=== PATIENT | male | born 1975 | race Caucasian/White ===

== ENCOUNTER → 2024-10-06 | Outpatient (CLI) | payer OTHER, SELFPAY ==
[2024-10-06 15:31] LABS: Absolute Neutrophil Count 3.2 X10^3/uL (2.0-7.7); Basophil# 0.05 X10^3/uL; Basophil% 1.1 % (0-1); Eosinophil# 0.03 X10^3/uL; Eosinophils% 0.6 % (0-5); Hematocrit 32.4 % (40-54); Hemoglobin 11.5 g/dL (13.0-16.5); Lymphocyte % 16.9 % (19-41); Mean Corp Hgb Conc 35.5 g/dL (32-36); Mean Corpuscular Volume 93.1 fL (80-94); Mean Platelet Vol. 8.2 fl (6.2-12.0); Monocyte# 0.62 X10^3/uL; Monocyte% 13.1 % (0-10); NRBC Flagged by Analyzer 0 % (0-5); Neutrophil # 3.21 X10^3/uL (2.7-7.7); Neutrophil % 67.9 % (47-70); Platelet Count 192 K/mm3 (150-450); RBC Distribution Width CV 11.5 % (11.6-14.6); RBC Distribution Width SD 38.8 fl (35.1-43.9); Red Blood Count 3.48 M/mm3 (4.6-6.2); White Blood Count 4.7 K/mm3 (4.4-11.0)
[2024-10-06 15:55] LABS: Erythrocyte Sedimentation Rate 15 mm/hr (0-20)
[2024-10-06 18:00] LABS: Vitamin B12 207 pg/mL (211-911)
[2024-10-06 18:30] LABS: ALB/GLOB Ratio 0.7 RATIO (0.9-2.4); AST(SGOT) 179 U/L (15-37); Alanine Aminotransfer ALT/SGPT 135 U/L (16-61); Albumin, Serum 3.5 g/dL (3.2-5.0); Alkaline Phosphatase 86 U/L (45-117); Anion Gap 11 (5-15); BUN 10 mg/dL (7-18); BUN/Creat Ratio 11.4 RATIO (10-20); Calcium,Total 9.4 mg/dL (8.5-10.1); Chloride 92 mmol/L (98-107); Cholesterol 210 mg/dL (200); Creatinine, Serum 0.88 mg/dL (0.70-1.30); EST Glomerular Filtration Rate 99 mL/min (>60); Est Glom Filt Rate - Afr Amer 119 mL/min (>60); Ferritin 856 ng/mL (26-388); Globulin 5.1 g/dL (2.2-4.2); Glucose 81 mg/dL (74-106); High Density Lipoprotein 93 mg/dL; PSA,Total - Annual Screen 1.28 ng/mL (0.00-4.00); Protein, Total 8.6 g/dL (6.4-8.2); Sodium Level 127 mmol/L (136-145); Triglycerides 66 mg/dL; Very Low Density Lipoprotein 13 mg/dL (5-40)
[2024-10-06 18:46] LABS: Amphetamine Urine NEGATIVE (<1000 ng/mL); Barbiturate Urine VISTA NEGATIVE (< 200 ng/mL); Benzodiazepine Urine VISTA NEGATIVE (< 200 ng/mL); Cocaine Urine NEGATIVE (< 300 ng/mL); Ecstacy Urine VISTA NEGATIVE (< 500 ng/mL); Methadone Urine VISTA NEGATIVE (< 300 ng/mL); Opiates Urine NEGATIVE (< 300 ng/mL); PCP Urine NEGATIVE (< 25 ng/mL); THC Urine VISTA NEGATIVE (< 50 ng/mL); Vista UDS pH Range 5
[2024-10-07 09:40] LABS: Iron 107 ug/dL (65-175); Magnesium 2.9 mg/dL (1.6-2.6)
[2024-10-12 08:08] LABS: GGTP 424 IU/L (0-65); Vitamin B1, Thiamine 68.5 nmol/L (66.5-200.0)
== END | disposition home or self-care (01) ==
PROVIDERS: PCP Family Medicine; Referring Provider Nurse Practitioner Family; Visit Provider Nurse Practitioner Family
DX: I10 Essential (primary) hypertension (principal); E78.5 Hyperlipidemia, unspecified; R25.1 Tremor, unspecified; Z78.9 Other specified health status; R26.81 Unsteadiness on feet; Z12.5 Encounter for screening for malignant neoplasm of prostate
CPT/HCPCS: 36415; 80053; 80061; 80307; 82043; 82306; 82607; 82728; 82977; 83540; 83735; 84153; 84425; 84443; 85025; 85652; G0103

== ENCOUNTER 2024-10-10 08:07 | Day surgery (SDC) | payer OTHER, SELFPAY ==
[2024-10-10] VITALS (10 sets, daily range): BP systolic 107–182; BP diastolic 74–121; PULSE 77–93; RESP 16–18; TEMP 36.3–37.3; O2SAT 95–100; BMI 26.2
--- NOTE | 2024-10-10 08:48 | PCM.PRE.AN2 ---
ASA Classification* ASA Classification ASA Classification: 2 Assessment & Plan Anesthesia* Anesthesia Assessment Anesthesia Assessment: Discussed sedation and/or anesthesia options, risks, benefits, and alternatives with patient/parents/legal guardian/POA. Questions invited. The patient/parents/legal guardian/POA seems to understand and agrees to proceed with anesthesia plan. Reviewed the physical assessment, medical history, allergy history and patient home medications list prior to surgery/procedure/anesthetic and documented any changes. Performed airway and anesthesia risk assessments. Anesthesia Type Anesthesia Type: MAC History Source History Obtained from:: Patient and Chart Anesthesia Focused Assessment* Temperature: 97.4 F Pulse Rate: 93 Blood Pressure: 180/110 Respiratory Rate: 17 Pulse Ox: 100 Oxygen Delivery Method: Room Air Airway Assessment Mouth opens: >3 cm Mallampati Score: IV Teeth Condition: Caps/Crowns (Tooth #8 is a crown. It is tight.) Neck Range of motion (ROM): Full ROM Focused Labs Anesthesia Preop lab: CBC WBC 4.7 K/mm3 (4.4-11.0) 10/06/24 13:43 10/06/24 RBC 3.48 M/mm3 (4.6-6.2) L 10/06/24 13:43 10/06/24 Hgb 11.5 g/dL (13.0-16.5) L 10/06/24 13:43 10/06/24 Hct 32.4 % (40-54) L 10/06/24 13:43 10/06/24 Plt Count 192 K/mm3 (150-450) 10/06/24 13:43 10/06/24 CHEMISTRY Potassium 5.0 mmol/L (3.5-5.1) 10/06/24 13:41 10/06/24 Sodium 127 mmol/L (136-145) L 10/06/24 13:41 10/06/24 Magnesium 2.9 mg/dL (1.6-2.6) H 10/06/24 13:41 10/06/24 BUN 10 mg/dL (7-18) 10/06/24 13:41 10/06/24 Creatinine 0.88 mg/dL (0.70-1.30) 10/06/24 13:41 10/06/24 Glucose 81 mg/dL (74-106) 10/06/24 13:41 10/06/24 TSH 1.330 uIU/mL (0.358-3.740) 10/06/24 13:41 10/06/24 COAG Pre-Assessment Diagnosis/Proposed Procedure Planned Operative Procedure(s): CSCOPE Anesthesia History 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 When Was Last Pacemaker Check QUESTION #4 FULL TEXT: You/Your Family Experience fever (hyperthermia) with Anesthesia Last Oral Intake Last Oral intake: Last Oral Intake NPO since 00:00 10/10/24 08:30 Meds taken in AM with sips of No 10/10/24 08:30 water? 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: PONV - hotel and dining room cashier Female No 10/04/24 12:02 HX of Motion Sickness No 10/04/24 12:02 HX of N/V After Surgery No 10/04/24 12:02 Non-Smoker Yes 10/04/24 12:02 Duration of Surgery greater No 10/04/24 12:02 than 60 minutes Number of Risk Factors 1 10/04/24 12:02 PONV Score Low Risk 10/04/24 12:02 Height & Weight Height & Weight: Anesthesia: Height & Weight Height 6 ft 3 in 10/10/24 08:30 Weight: 95 kg 10/10/24 08:30 Body Mass Index (BMI) 26.2 10/10/24 08:30 Respiratory Assessment Respiratory Assessment - hotel and dining room cashier: Respiratory Tract Infection Hx - hotel and dining room cashier Hx Respiratory Tract Infection No 10/04/24 12:02 Any additional information?: Yes Hx Respiratory Tract Infection: Yes (Patient has a chronic cough.) STOP Sleep Apnea STOP Sleep Apnea - hotel and dining room cashier: STOP Sleep Apnea - hotel and dining room cashier Hx Hypertension Yes: RECENTLY PUT ON BP MEDS 10/04/24 12:02 09/2024 Hx Sleep Apnea No: GOING TO BE TESTED END 10/04/24 12:02 OF 09/2024 CPAP BIPAP Do you snore loudly (louder No 10/04/24 12:02 than talking or can be heard Do you often feel tired/ No 10/04/24 12:02 fatigued/ sleepy during daytime? Has anyone observed you stop No 10/04/24 12:02 breathing during sleep? STOP Results Negative 10/04/24 12:02 QUESTION #5 FULL TEXT : Do you snore loudly (louder than talking or can be heard through closed doors)? 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 Specify any problems Hx of Preganancy in last 3 N/A 10/04/24 12:02 Months Nurse Filling Out Transfusion NBUCHER 10/04/24 12:02 & Questions: Date: 10/04/24 10/04/24 12:02 Time: 12:03 10/04/24 12:02 Patient unable to answer at this time (ie. confused, unrespo /Reproduction History /Reproductive History - hotel and dining room cashier: /Reproductive Hx- hotel and dining room cashier Hx Now Gestational Age (in weeks): EDC: Hx Hx Para Hx Section SAB PFSH Medical History High cholesterol GERD (gastroesophageal reflux disease) Alcohol use Non-smoker History of stress test Hypertension Hyperlipidemia Home Medications ?Medication ?Instructions ?Recorded ?Last Taken ?Type esomeprazole magnesium 20 mg 20 mg PO QDAY PRN GERD 08/01/24 10/09/24 History capsule,delayed release simvastatin 40 mg tablet 40 mg PO QDAY 08/01/24 10/09/24 History Allergy/AdvReac Type Severity Reaction Status Date / Time No Known Allergies Allergy Verified 10/10/24 08:29 Family History Father Prostate cancer Surgical History History of tonsillectomy Hx of vasectomy Social History household members: spouse current occupational status: employed Smoking Status: Never smoker alcohol intake: current alcohol intake frequency: 3 or more drinks per day Alcohol type: beer substance use type: does not use Review of Systems (Anesthesia) ROS Narrative System reviewed and no additional complaints, except as documented.
--- NOTE | 2024-10-10 09:07 | H&P.OPEN ---
HPI - General HPI Narrative RJ OROZCO, is a 48 M who presents for his for screening colonoscopy. Patient denies any abdominal pain or blood in the stool. He has never had a colonoscopy in the past. No family history of colon cancer. FOR[facility]LY [facility] Medical History High cholesterol GERD (gastroesophageal reflux disease) Alcohol use Non-smoker History of stress test Hypertension Hyperlipidemia Home Medications ?Medication ?Instructions ?Recorded ?Last Taken ?Type esomeprazole magnesium 20 mg 20 mg PO QDAY PRN GERD 08/01/24 10/09/24 History capsule,delayed release simvastatin 40 mg tablet 40 mg PO QDAY 08/01/24 10/09/24 History Allergy/AdvReac Type Severity Reaction Status Date / Time No Known Allergies Allergy Verified 10/10/24 08:29 Family History Father Prostate cancer Surgical History History of tonsillectomy Hx of vasectomy Social History household members: spouse current occupational status: employed Smoking Status: Never smoker alcohol intake: current alcohol intake frequency: 3 or more drinks per day Alcohol type: beer substance use type: does not use Past Medical/Surgical History Planned Operation Planned Operative Procedure(s): CSCOPE Previous Hospitalizations/Surgeries HX Hospitalizations: No Any Problems With Anesthesia: No You/Your Family Experience Fever (Hyperthermia) With Anes: No Cholinesterase deficiency: No Cardiovascular Hx Hypertension: Yes (RECENTLY PUT ON BP MEDS 09/2024) Respiratory Hx Sleep Apnea: No (GOING TO BE TESTED END OF 09/2024) Hx Respiratory Tract Infection/Cold (presently): Yes (Patient has a chronic cough.) Do You Snore Loudly (louder than talking or can be heard): No Do You Often Feel Tired/ Fatigued/ Sleepy Dring Daytime?: No Has Anyone Observed You Stop Breathing During Sleep?: No Result (for STOP score): Negative Smoking Status: Never smoker Neurological Does patient have nerve stimulator: No Miscellaneous Recent Exposure to Contagious Disease: No Allergies No Known Allergies Allergy (Verified 10/10/24 08:29) Discharge Is Pt Admitted From a Long-Term, or a Half-Way: No After D/C, Where Do you Plan to Go: Return Home Vital Signs Vital Signs Vital Signs: 10/10/24 08:30 10/10/24 08:30 10/10/24 08:58 Temperature 97.4 F L 97.4 F L Temperature Source Temporal Pulse Rate 93 93 Respiratory Rate 17 17 Respiratory Pattern Normal Blood Pressure 180/110 H 180/110 H Blood Pressure Mean 133 Blood Pressure Source Monitor Blood Pressure Position Semi-Fowlers Blood Pressure Location Left Arm Pulse Ox 100 100 Oxygen Delivery Method Room Air Room Air Weight Weight: 209 lb 7.026 oz Body Mass Index (BMI) 26.2 Physical Exam Const alert and oriented x3 HEENT normocephalic Eyes PERRL Resp normal respiratory effort and normal air movement Cardio regular rate and regular rhythm GI soft to palpation, non-tender and non-distended Extremity normal to inspection Assessment & Plan Assessment/Plan (1) Encounter for screening for malignant neoplasm of colon: PLAN: I explained endoscopy in detail to the patient. I explained the risks including but not limited to stroke or heart attack with anesthesia, perforation of the GI tract, bleeding, infection. I explained that any of these could necessitate further emergency surgery. The patient understands and all questions were answered sufficiently. The patient wishes to proceed with procedure. Paddy Lanza MD Pager: [facility] [address] [place] [address], [address] [place] [address] Office: Surgery Risks - Colonoscopy Risks Include but are not Limited To: Risks include but are not limited to: Bleeding, perforation requiring further surgery, inability to complete colonoscopy requiring barium enema.
--- NOTE | 2024-10-10 09:15 | COLBX_PTH ---
PATIENT: RJ OROZCO II LOC: EN U#:[id number] AGE/SX: 48/M ROOM: RE10/10/[address]: Dr. Paddy Lanza MD : 1975 BED: DIS: 10/10/2024 SPEC #: [id number] RECD: 10/10/24 11:15 STATUS: RODRIGO CONTEH #: [id number] JAZMIN: 10/10/24 09:[address]: Paddy Lanza DEPT: SURGICAL PATHOLOGY RECD BY: Falguni Arteaga ENTERED: 10/10/24 11:57 SP TYPE: COLON BX OTHR DR: Dr. Will Santana MD Tissues: Rectum, NOS Procedures: Surgery Specimen Level IV HEADER OPERATION: Colonoscopy, polypectomy PRE-OP DIAGNOSIS: Encounter for screening for malignant neoplasm of colon TISSUE SUBMITTED: Rectal polyp MICROSCOPIC DIAGNOSIS Rectal polyp, polypectomy: Tubular adenoma. 10/11/2024 MICROSCOPIC DESCRIPTION Slides are reviewed. GROSS DESCRIPTION Received in fixative is one container labeled with the patient's name and designated Rectal polyp. The specimen consists of a pink-red polyp measuring 1.5 x 1.5 x 1 cm. The presumed base is inked. The polyp is serially sectioned and submitted entirely in one cassette. 10/10/2024 TC:1 CPT:22211
--- NOTE | 2024-10-10 10:20 | OP.COLON_ITS ---
Patient Name: Avery Johnson Procedure Date: 10/10/2024 9:00 AM Date of : 1975 Age: 48 Procedure: Colonoscopy Indications: Screening for colorectal malignant neoplasm Providers: Paddy Lanza MD Referring MD: Paddy Lanza MD Medicines: Propofol per Anesthesia Patient Profile: This is a 48 year old male. Refer to note in patient chart for documentation of history and physical. Last Colonoscopy: none. The patient's first colonoscopy is today. Complications: No immediate complications. Estimated blood loss: Minimal. Procedure: Pre-Anesthesia Assessment: - Prior to the procedure, a History and Physical was performed, and patient medications and allergies were reviewed. The patient's tolerance of previous anesthesia was also reviewed. The risks and benefits of the procedure and the sedation options and risks were discussed with the patient. All questions were answered, and informed consent was obtained. Prior Anticoagulants: The patient has taken no anticoagulant or antiplatelet agents. After reviewing the risks and benefits, the patient was deemed in satisfactory condition to undergo the procedure. After I obtained informed consent, the scope was passed under direct vision. Throughout the procedure, the patient's blood pressure, pulse, and oxygen saturations were monitored continuously. The colonoscope was introduced through the anus and advanced to the ileocecal valve. The colonoscopy was performed without difficulty. The patient tolerated the procedure well. The quality of the bowel preparation was good. The ileocecal valve, appendiceal orifice, and rectum were photographed. Scope In: 10:04:28 AM Scope Withdrawal Time 0 hours 5 minutes 52 seconds Scope Out: 10:15:32 AM Total Procedure Duration Time 0 hours 11 minutes 4 seconds Findings: A large polyp was found in the rectum. The polyp was semi-pedunculated. The polyp was removed with a hot snare. Resection and retrieval were complete. The exam was otherwise without abnormality on direct and retroflexion views. Impression: - One large polyp in the rectum, removed with a hot snare. Resected and retrieved. - The examination was otherwise normal on direct and retroflexion views. Recommendation: - Discharge patient to home. - Resume previous diet. - Continue present medications. - Await pathology results. - Repeat colonoscopy in 3 years for surveillance. Procedure Code(s): --- Professional --- 46643, 33, Colonoscopy, flexible; with removal of tumor(s), polyp(s), or other lesion(s) by snare technique Diagnosis Code(s): --- Professional --- Z12.11, Encounter for screening for malignant neoplasm of colon D12.8, Benign neoplasm of rectum CPT copyright 2021 [employer]. All rights reserved. The codes documented in this report are preliminary and upon thermometer maker review may be revised to meet current compliance requirements. Paddy Lanza MD 10/10/2024 10:19:35 AM This report has been signed electronically. Number of Addenda: 0 Note Initiated On: 10/10/2024 9:00 AM
--- NOTE | 2024-10-10 10:20 | OP.CCLET_ITS ---
10/10/2024 Grant Santana [address] [place] [address] Re : Colonoscopy procedure for Avery Johnson Dear Dr. Santana This procedure was performed on Thursday, October 10, 2024. My impressions and recommendations are as follows: Impressions : - One large polyp in the rectum, removed with a hot snare. Resected and retrieved. - The examination was otherwise normal on direct and retroflexion views. Recommendations : - Discharge patient to home. - Resume previous diet. - Continue present medications. - Await pathology results. - Repeat colonoscopy in 3 years for surveillance. My findings are described in the full procedure note, which is enclosed. If I can be of further assistance, please feel free to contact me at Doctor phone number(s): , Work: . Sincerely, Paddy Lanza MD 10/10/2024 10:19:35 AM This report has been signed electronically.
--- NOTE | 2024-10-10 10:24 | PCM.POST.ANE ---
Anesthesia: Postop Eval I Current Vital Signs Temperature: 99 F Pulse Rate: 77 Blood Pressure: 107/74 Respiratory Rate: 16 Pulse Ox: 97 Oxygen Delivery Method: Room Air Assessment Airway patent: Yes Spontaneous unlabored respirations: Yes Mental status: Asleep nausea: No Vomiting: No Anesthesia Complication: No Fluid Hydration Crystalloid volume administer (ml): 200 Total IV fluid infused: 200 Progress Note Anesthesia document: Postop Eval 1 completed: Yes
--- NOTE | 2024-10-10 18:33 | PCM.POSTANE2 ---
Anesthesia Postop Eval I Sum Postop Eval Completion status Anesthesia document: Postop Eval 1 completed: Yes Anesthesia Postop Eval I Summary Anesthesia Postop Eval I Summary: Anesthesia Postop Eval I: Assessment Summary Airway patent Yes 10/10/24 10:25 [email or web address] Spontaneous unlabored Yes 10/10/24 10:25 [email or web address] respirations Mental status Asleep 10/10/24 10:25 [email or web address] nausea No 10/10/24 10:25 [email or web address] Vomiting No 10/10/24 10:25 [email or web address] Anesthesia Postop Eval I: Fluid Summary Crystalloid volume administer 200 10/10/24 10:25 [email or web address] (ml) Colloids volume administered ( ml) Blood Product volume administered (ml) Total IV fluid infused 200 10/10/24 10:25 [email or web address] Anesthesia Postop Eval I: Summary Notes Anesthesia Complication No 10/10/24 10:25 [email or web address] Anesthesia Complication Comment: Post-operative progress note Anesthesia: Postop Eval II Evaluation Mental status: Awake and Calm Pain Level: 0 nausea: No Vomiting: No Progress Note Post-operative progress note: Blood pressure is much improved in PACU. Complications Anesthesia Complication: No
== END 2024-10-10 10:57 | disposition home or self-care (01) ==
LOC: EN 08:11 → AC 08:11
PROVIDERS: PCP Family Medicine; Referring Provider Surgery; Visit Provider Surgery
PROC: 0DJD8ZZ Inspection of Lower Intestinal Tract, Via Natural or Artificial Opening Endoscopic (ICD-10-PCS; CPT 45378; principal; 2024-10-10 09:10)
DX: Z12.11 Encounter for screening for malignant neoplasm of colon (principal); D12.8 Benign neoplasm of rectum; I10 Essential (primary) hypertension; E78.00 Pure hypercholesterolemia, unspecified; K21.9 Gastro-esophageal reflux disease without esophagitis; Z79.899 Other long term (current) drug therapy
CPT/HCPCS: 45385; 88305; A4216; J2405

== ENCOUNTER → 2024-10-16 | Outpatient (CLI) | payer OTHER, SELFPAY ==
[2024-10-16 11:34] LABS: AST(SGOT) 93 U/L (<=37); Alanine Aminotransfer ALT/SGPT 94 U/L (<=46); Albumin, Serum 3.8 g/dL (3.5-5.0); Alcohol, Blood (Medical)-Serum < 10.1 mg/dL (<=10.0); Alkaline Phosphatase 68 U/L (40-129); Ammonia 24.7 umol/L (16-60); Anion Gap 11 (5-15); BUN 14 mg/dL (4-19); BUN/Creat Ratio 13.7 RATIO (10-20); Calcium 9.2 mg/dL (7.6-11.0); Carbon Dioxide 24.5 mmol/L (22.0-29.0); Chloride 92 mmol/L (96-108); Creatinine, Serum 1.01 mg/dL (0.70-1.20); EST Glomerular Filtration Rate 92 (>60); Glucose 101 mg/dL (70-99); Potassium 3.9 mmol/L (3.3-5.1); Protein, Total 7.8 g/dL (5.9-8.4); Sodium Level 128 mmol/L (133-145); Total Bilirubin 1.03 mg/dL (0.00-1.30)
[2024-10-16 15:40] LABS: Osmolality, Serum 268 mOsm/KG (275-295)
[2024-10-17 17:07] LABS: Endomysial Antibody IgA Negative (Negative); HEPATITIS B SURFACE AG Negative (Negative); Hep C Antibodies Non Reactive (Non Reactive); Hepatitis A IgM Antibody Negative (Negative); Hepatitis B Core AB IgM Negative (Negative); Immunoglobulin A 451 mg/dL (90-386); t-Transglutaminase IgA <2 U/mL (0-3)
== END | disposition home or self-care (01) ==
LOC: MFPLAB 08:16
PROVIDERS: PCP Family Medicine; Referring Provider Family Medicine; Visit Provider Family Medicine
DX: E87.1 Hypo-osmolality and hyponatremia (principal); D64.9 Anemia, unspecified; R79.89 Other specified abnormal findings of blood chemistry
CPT/HCPCS: 36415; 80053; 80074; 82077; 82140; 82784; 83516; 83930; 86255

== ENCOUNTER → 2024-11-01 | Outpatient (CLI) | payer OTHER, SELFPAY ==
--- NOTE | 2024-11-01 08:20 | US_ITS ---
PROCEDURE: ABD LIMITED W/ ELASTOGRAPHY REASON FOR EXAM: NEW ELEVATED LFTS, ETOH. COMPARISON: None. TECHNIQUE: Right upper quadrant abdominal ultrasound. Charly ElastQ Imaging shear wave elastography for non-invasive assessment of liver tissue stiffness. Charly EPIQ Elite. FINDINGS: LIVER: Size: Enlarged (hepatomegaly) Length: 18 cm Echotexture: Diffusely echogenic suggesting fatty infiltration Contour: Normal Lesions: None identified Elastography: EQI Med: 12.3 kPa EQI Med Alex: 2.0 m/s IQR/Med: 12 %* GALLBLADDER: Normal COMMON BILE DUCT: Normal it measures 4.6 mm.. PANCREAS: Normal Visualized portions of the right kidney are unremarkable. No right upper quadrant ascites. US/ABD Limited w/ Elastography IMPRESSION: MODERATE TO SEVERE HEPATIC FIBROSIS Mild hepatomegaly and fatty infiltration of the liver. Reference Values: SRU <1.37 m/s (5.7kPa): No to mild fibrosis 1.37 m/s - 2.2 m/s: Moderate to severe fibrosis >2.2 m/s (15kPa): Significant fibrosis / cirrhosis METAVIR Score F2 or higher: 1.34 m/s (5.7kPa) F3 or higher: 1.55 m/s (7.3kPa) F4: 1.80 m/s (10kPa) * If the IQR/Med is >30%, the variance in the measurements is a large and the a ccuracy of the measurement may be in question. Reading Location: [place] [id number]
== END | disposition home or self-care (01) ==
PROVIDERS: PCP Family Medicine; Referring Provider Family Medicine; Visit Provider Family Medicine
DX: R79.89 Other specified abnormal findings of blood chemistry (principal)
CPT/HCPCS: 76705; 76981

== ENCOUNTER → 2024-12-05 | Outpatient (CLI) | payer OTHER, SELFPAY ==
--- NOTE | 2024-12-05 09:19 | NEURO ---
NCS and/or EMG Patient Report Ordering Doctor: Wisam Cosby DATE OF SERVICE: 12/05/24 Clinical Summary: 48 year old male patient presenting with symptoms of numbness, tingling, and weakness in the distal lower extremities for the 6 to 12 months. Nerve Conduction Studies Summary: Nerve conduction studies were performed in the bilateral lower extremities. All SNAPs and CMAPs were absent bilaterally. Needle Examination Summary: Needle examination of the bilateral lower extremities were performed. There was increased insertional and spontaneous activity (positive sharp waves and fibrillation potentials) in the bilateral tibialis anterior, bilateral peroneus longus, bilateral medial gastrocnemius, and bilateral flexor digitorum longus muscles. There was higher proportion of motor unit action potentials with increased amplitude and duration in the right vastus lateralis muscle. There was a higher proportion of motor unit action potential recruitment, decreased amplitude, decreased duration, and polyphasia in the bilateral tibialis anterior, bilateral peroneus longus, and bilateral medial gastrocnemius muscles. There were no motor units observed in the bilateral flexor digitorum longus muscles. Impression: This is an abnormal study. There is electrodiagnostic evidence of the following - 1) Severe, sensorimotor, axonal, length-dependent, peripheral polyneuropathy with active denervation There were isolated chronic neurogenic changes seen in the right vastus lateralis muscle, which is of uncertain significance, but can be seen in the setting of a chronic mild, right L2/L3/L4 radiculopathy. Multi Select Codes Neurology Neurology Interp Codes: 59333-71 Musc test done w/n test comp (interp) (2) and 82130-29 Nrv cndj test 7-8 studies (interp)
== END | disposition home or self-care (01) ==
PROVIDERS: PCP Family Medicine; Referring Provider Psychiatry & Neurology Neurology; Visit Provider Psychiatry & Neurology Neurology
DX: R29.898 Other symptoms and signs involving the musculoskeletal system (principal); G62.9 Polyneuropathy, unspecified
CPT/HCPCS: 95886; 95910

== ENCOUNTER → 2025-01-24 | Outpatient (CLI) | payer OTHER, SELFPAY ==
[2025-01-24 17:27] LABS: AST(SGOT) 102 U/L (<=37); Alanine Aminotransfer ALT/SGPT 81 U/L (<=46); Albumin, Serum 4.1 g/dL (3.5-5.0); Alkaline Phosphatase 85 U/L (40-129); Anion Gap 13 (5-15); BUN 14 mg/dL (4-19); BUN/Creat Ratio 14.2 RATIO (10-20); Carbon Dioxide 23.4 mmol/L (21.0-32.0); Chloride 92 mmol/L (98-108); Creatinine, Serum 0.98 mg/dL (0.70-1.20); EST Glomerular Filtration Rate 95 (>60); Globulin 4.2 g/dL (2.2-4.2); Glucose 98 mg/dL (70-99); Magnesium 1.9 mg/dL (1.5-2.2); Potassium 4.2 mmol/L (3.3-5.1); Protein, Total 8.3 g/dL (5.9-8.4); Sodium Level 128 mmol/L (133-145); Total Bilirubin 1.06 mg/dL (0.00-1.30)
[2025-01-24 19:05] LABS: Hemoglobin A1c 5.3 % (<=5.6)
--- OUTSIDE RECORDS SUMMARY | 2025-01-24 21:04 | XMS RPT_ITS | CCD ---
Author Organization [facility] [place] Care Team Providers Care Mental Health Practitioner Name Role Phone PHYSICIAN, NONE Primary Care Unavailable MAX NELSON, DR RODRIGUEZ Attending Viola Ling Attending Provider Unavailable Max NELSON, Dr. Rodriguez Primary Care Provider Max NELSON, Dr. Rodriguez Other Provider [phone] Raciel PNEUDRAULIC SYSTEMS MECHANIC-C, Liudmila Attending Provider [phone] Raciel PNEUDRAULIC SYSTEMS MECHANIC-C, Liudmila Referring Provider Myla NELSON, Dr. Thomason Attending Provider [phone] Myla NELSON, Dr. Thomason Referring Provider Myla NELSON, Dr. Thomason Other Provider [phone] Dr. Michael Santana MD Attending Provider Max NELSON, Dr. Rodriguez Referring Provider Catrina NELSON, Dr. Ibanez Attending Provider Dr. Wisam Cosby MD Attending Provider Dr. Wisam Cosby MD Referring Provider Alea NELSON, Dr. Joel Other Provider [phone] Pita NELSON, Dr. Torres Attending Provider Dr. Wisam Cosby MD Referring Provider [phone] Wisam Cosby Attending Unavailable Michael Santana Referring Unavailable Michael Santana Primary Care Unavailable Wisam Cosby Attending Unavailable Wisam Cosby Referring Unavailable Michael Santana Primary Care Unavailable Michael Santana Attending Unavailable Michael Santana Referring Unavailable Michael Santana Primary Care Unavailable Michael Santana Attending Unavailable Michael Santana Referring Unavailable Maripos[facility]arietta, [facility] Primary Care Unavailable Wisam Cosby Attending Unavailable Wisam Cosby Referring Unavailable [facility] Unavailable Shamar Fritz Attending Unavailable [facility] Primary Care Unavailable Viola Henley Attending Unavailable Paddy Lanza Consulting Unavailable Paddy Lanza Attending Unavailable Paddy Lanza Referring Unavailable Mariposamarietta, [facility] Primary Care Unavailable Melissa Lema Attending Unavailable Wisam Cosby Referring Unavailable Alea, Wisam Consulting Unavailable Mariposamarietta, [facility] Primary Care Unavailable Wisam Cosby Attending Unavailable Max, Dimitrier Referring Unavailable Mariposamarietta, [facility] Primary Care Unavailable Mariposamarietta, [facility] Primary Care Unavailable Mxa, Michael Consulting Unavailable Raciel PNEUDRAULIC SYSTEMS MECHANIC, Liudmila Attending Unavailable Raciel PNEUDRAULIC SYSTEMS MECHANIC, Liudmila Referring Unavailable Mariposamarietta, [facility] Primary Care Unavailable Paddy Lanza Referring Unavailable Paddy Lanza Attending Unavailable Michael Santana Attending Unavailable MariposamariettaMichael Referring Unavailable [facility] Primary Care Unavailable Medications Current Medications Medication Drug Class(es) Dates Sig (Normalized) Sig (Original) cholecalciferol 1.25 mg oral capsule (2 sources) Vitamin D Start: 11-15-2024 take 1 capsule by mouth every week Cholecalciferol (Vitamin D3) 1,250 mcg (50,000 unit) capsule Active 1250 ug PO EVERY WEEK November 15, 2024 12:00am esomeprazole 20 mg delayed release oral capsule (4 sources) Proton Pump Inhibitor Start: 08-01-2024 take 1 capsule by mouth once daily as needed for gastroesophageal reflux disease Esomeprazole Magnesium 20 mg capsule,delayed release(DR/EC) Active 20 mg PO daily as needed for GERD August 01, 2024 1:00am simvastatin 40 mg oral tablet (4 sources) HMG-CoA Reductase Inhibitor Start: 08-01-2024 take 1 tablet by mouth once daily Simvastatin 40 mg tablet Active 40 mg PO daily August 01, 2024 1:00am Problems Problem Classification Problem Date Documented Date Episodic/Chronic Diabetes mellitus without complication (3 sources) Hyperglycemia; Translations: [Hyperglycemia, unspecified] Onset: 11-15-2024 11-15-2024 Episodic Essential hypertension (1 source) Essential (primary) hypertension; Translations: [Essential (primary) hypertension] Onset: 10-18-2024 Chronic Fluid and electrolyte disorders (6 sources) Hyponatremia; Translations: [Hypo-osmolality and hyponatremia] Onset: 11-15-2024 11-15-2024 Episodic Influenza (4 sources) Influenza due to Influenza A virus; Translations: [Influenza due to other identified influenza virus with other respiratory manifestations] 07-31-2022 Episodic Nutritional deficiencies (6 sources) Vitamin D deficiency; Translations: [Vitamin D deficiency, unspecified] Onset: 11-15-2024 11-15-2024 Chronic Nutritional deficiencies (6 sources) Cobalamin deficiency; Translations: [Deficiency of other specified B group vitamins] Onset: 11-15-2024 11-15-2024 Episodic Other connective tissue disease (2 sources) Paraparesis; Translations: [Other symptoms and signs involving the musculoskeletal system] 11-15-2024 Episodic Other connective tissue disease (2 sources) Other symptoms and signs involving the musculoskeletal system; Translations: [Other symptoms and signs involving the musculoskeletal system] Onset: 01-09-2025 Episodic Other nervous system disorders (5 sources) Polyneuropathy; Translations: [Polyneuropathy, unspecified] 11-15-2024 Chronic Other nervous system disorders (2 sources) Polyneuropathy, unspecified; Translations: [Polyneuropathy, unspecified] Onset: 11-15-2024 Chronic Other nutritional; endocrine; and metabolic disorders (2 sources) Hypermagnesemia; Translations: [Hypermagnesemia] 11-15-2024 Chronic Other nutritional; endocrine; and metabolic disorders (1 source) Hypermagnesemia; Translations: [Hypermagnesemia] Onset: 11-15-2024 Chronic Other screening for suspected conditions (not mental disorders or infectious disease) (11 sources) Patient encounter status; Translations: [Encounter for screening for malignant neoplasm of colon] Onset: 10-16-2024 08-01-2024 Episodic Other upper respiratory infections (4 sources) Sore throat symptom; Translations: [Acute pharyngitis, unspecified] 07-31-2022 Episodic Spondylosis; intervertebral disc disorders; other back problems (3 sources) Lumbar radiculopathy; Translations: [Radiculopathy, lumbar region] Onset: 01-22-2025 01-22-2025 Episodic Unclassified (2 sources) G62.9 - Polyneuropathy, unspecified,R29.898 - Other symptoms and signs involving the musculoskeletal system Results Test Name Value Interpretation Reference Range Facility NCS and/or EMG Patienton NCS and/or EMG Patient [facility]monary Services/Neurology [address] [place] [address] MR#: [id number] Acct: [id number] Name: RJ JOHNSON II Rep #: [id number] : 1975 48 From: Melissa Lema MD Referring Dr: Wisam Cosby MD Status: REG CL I Location: PSN Date: 12/05/24 Sex: M C NCS and/or EMG Patient Report Ordering Doctor: Wisam Cosby DATE OF SERVICE: 12/05/24 Clinical Summary: 48 year old male patient presenting with symptoms of numbness, tingling, and weakness in the distal lower extremities for the 6 to 12 months. Nerve Conduction Studies Summary: Nerve conduction studies were performed in the bilateral lower extremities. All SNAPs and CMAPs were absent bilaterally. Needle Examination Summary: Needle examination of the bilateral lower extremities were performed. There was increased insertional and spontaneous activity (positive sharp waves and fibrillation potentials) in the bilateral tibialis anterior, bilateral peroneus longus, bilateral medial gastrocnemius, and bilateral flexor digitorum longus muscles. There was higher proportion of motor unit action potentials with increased amplitude and duration in the right vastus lateralis muscle. There was a higher proportion of motor unit action potential recruitment, decreased amplitude, decreased duration, and polyphasia in the bilateral tibialis anterior, bilateral peroneus longus, and bilateral medial gastrocnemius muscles. There were no motor units observed in the bilateral flexor digitorum longus muscles. Impression: This is an abnormal study. There is electrodiagnostic evidence of the following - 1) Severe, sensorimotor, axonal, length-dependent, peripheral polyneuropathy with active denervation There were isolated chronic neurogenic changes seen in the right vastus lateralis muscle, which is of uncertain significance, but can be seen in the setting of a chronic mild, right L2/L3/L4 radiculopathy. Multi Select Codes Neurology Neurology Interp Codes: 58286-03 Musc test done w/n test comp (interp) (2) and 11995-75 Nrv cndj test 7-8 studies (interp) 12/05/24 1251 Date Melissa Lema MD CC: Dr. Melissa Lema MD; Dr. Michael Santana MD; Dr. Wisam Cosby MD Date Dictated: 12/05/24918 Date Transcribed: 12/05/24918 Manager Installation: Signed Normal [facility] Inital Evaluation (1) - PTon 11-27-2024 Inital Evaluation (1) - PT [facility] Physical Therapy [facility] [address] [place] [address] / REHABILITATION SERVICES INITIAL EVALUATION MR#: [id number] Acct: [id number] Name: RJ JOHNSON II Rep #: [id number] : 1975 48 From: Emerson Ortiz DPT Referring Dr.: Dr. Wisam Cosby MD Status: REG R Insurance: [facility] SELF PAY INSURANCE Patient's Visit Information Visit Information Visit Information: RJ JOHNSON II is a 48 year old M referred to Physical Therapy by Dr. Wisam Cosby MD with a diagnosis of Polyneuropathy. Date of Evaluation: 11/27/24 Physical Therapist: NORAH MendozaT Visit Plan Frequency: 1x/Week Duration: 6 Weeks Plan: 1) DF and PF strengthening 2) dyanmic balance with focus on eyes closed, SLS and narrow GM. Subjective Subjective: Pt. is here today for his initial evaluation with diagnosis of polyneuropathy with weakness in both extremities. Pt. reports over the past few months he has been noticing increased BLEs which is effecting his balance and ability to walk. He is still able to complete basic daily activities, no falls, but feels unbalanced and normal tasks have become difficult. Pt. reports of tingling in her LLE, but mostly just weakness. He reports his biggest issue is with his L foot and being able to pull his toes up. He notices catching his foot on the ground and he hears his foot slap on the ground with walking. Pt. is hopeful to improve his symptoms in order to get back to all daily activities without limitations. Objective Objective: POSTURE: Pt. has a general flexed posture through his trunk. Pt. has wide GM in stance. PALPATION: Pt. has no pain with palpation of BLEs. NEURO: Pt. decreased sensation throughout Gary distal LE, L worse than R side. Pt. has decreased L patellar and achilles DTR. Pt. has difficulty with rising on heels and toes. ROM: Pt. as good ROM in BLEs. Slight tightness on L calf compared to R side. MMT: Pt. has symmetrical B hip strength, HS and quad strength. HE has marked weakness with B G/S complex, 18# on R , 7# on L. DF: L 4#, R 32#. GAIT: Pt. ambulates without AD. Pt. has marked L DF weakness as I can hear his foot slap during initial contact. SLS: 8sec on LLE, 14 on RLE Balance/Special Test Scores Functional Gait Assessment Score: 26 % Disability: 13.3400 CATSIB Score (Max score 120 seconds): 75 Lower Extremity Functional Score: 42 TUG Test Time Seconds: 9.1 30 Second Chair Rise Test Seconds: 16 Goals Goal 1:: LTG: Pt. to be I with HEP. Goal Time Frame: 4-6 Weeks Goal 2:: LTG: Pt. to have increased L DF symmetrical to R DF. Goal Time Frame: 4-6 Weeks Goal 3:: LTG: Pt. to have increased FGA to 30/30 indicating reduced risk for future falls. Goal Time Frame: 4-6 Weeks Goal 4:: LTG: PT. to complete 10 SL heel raises on BLEs. Goal Time Frame: 4-6 Weeks Rehabilitation Potential Physical Therapy Diagnosis: pt. has signs and symptoms consistent with polyneuropathy. Pt. has marked LLE weakness, especially with his DF. Pt. would benefit form PT to increase BLE, with focus o n LLE. Rehabilitation Potential: Good Anticipated Interventions Patient/Client Instruction: Educate patient on: Condition, Plan of Care, Risk Factors and Benefits of Fitness Program For the Purpose of:: To improve decision making, To facilitate caregiver knowledge, To improve self management, To prevent re-injury, To improve ability to perform tasks related to life management and To improve tolerance to ADL's Therapeutic Exercise to Include: Strength training, Power training and Endurance training For the Purpose of:: To improve nutrient delivery to tissue, To increase oxygenation perfusion, To improve muscle performance and motor function, To increase tolerance to activity/condition/positi on and To improve performance and independence with ADL's Text: Thank you for the opportunity to evaluate your patient. For Medicare and Medicare HMO plans, please review the plan of care and approve it. It will need to be FAXED BACK to us at [phone] for Medicare purposes. For Medicare only, by signing this I certify the plan of care. Please let me know if there are questions or concerns regarding this plan of care. Physician Signature: Date: _ 11/27/24 1533 CC: Dr. Michael Santana MD; Dr. Wisam Cosby MD CLS Signed Normal [facility] Neurology Visit Reporton Neurology Visit Report [facility] [address], [address] [place] [address] OFFICE VISIT Date of Service: 11/15/24 MR#: [id number] Acct: [id number] Name: RJ JOHNSON SHINE Rep #: [id number] : 1975 Provider: Dr. Wisam joe MD Age/Sex: 48/M Location: BMS.BN Status: Signed with Addenda ADDENDUM by Dr. Wisam Cosby MD on 11/15/24 at 1608 Addendum Addendum (11/15/2024): Head MRI (10/23/2024): Findings: Intracranial structures/ventricles: There is no acute infarct. No mass effect or midline shift. No evidence of an acute intracranial hemorrhage. The ventricles and sulci are mildly enlarged for patient of this age. There are several punctate foci of increased T2 signal in the periventricular and subcortical white matter, nonspecific. The sellar/suprasellar regions appear unremarkable. The normal signal voids within the major intracranial vessels appear maintained. Orbits: The visualized portion of the orbits demonstrate no acute abnormality. Sinuses: The visualized paranasal sinuses and mastoid air cells demonstrate no acute abnormality. Bones/soft tissues: The bone marrow signal intensity appears normal. The soft tissues demonstrate no acute abnormality. Impression: 1. Mild volume loss for age. 2. No acute intracranial finding. Correction: In physical exam for 11/15/2024 office note change heart exam to regular rhythm; tachycardia. 11/15/24 1608 Date Wisam Cosby MD cc: Dr. Michael Santana MD * Signed HPI HPI Chief Complaint: Establish Care Details: History: The patient is a 48-year-old right-handed male with a past medical history of hyperlipidemia, and obstructive sleep apnea who presents for evaluation of bilateral lower extremity weakness. Since around July 2024 he has been experiencing weakness distally in the lower extremities. He states that this has caused some gait imbalance. He reports having decreased sensation in both feet. He is not experiencing any lower extremity pain. He is not experiencing any neck pain, low back pain, speech difficulty, swallowing difficulty, vision change, headaches, vertigo, disequilibrium, or lightheadedness. He is able to ambulate independently however he states that he has difficulty performing activities such as running. Laboratory evaluation revealed a B12 deficiency, vitamin D deficiency, elevated liver transaminases, hyponatremia, anemia, and marginally elevated serum glucose. A serum iron and ferritin were normal. A hepatitis panel was negative. An abdominal scan with elastography revealed moderate to severe hepatic fibrosis, mild hepatomegaly and fatty infiltration of the liver. He has a history of excessive alcohol consumption. He states that since around 2014 he has been consuming about 4 cans of beer for 2 glasses of wine daily. He curtailed his alcohol consumption beginning in October 2024 and since that time may have consumed about 2 drinks of alcohol in total. B12 injections were initiated for his B12 deficiency. He has a history of excessive water consumption. He states that he drinks up to four 32 ounce containers of water daily. He also consumes some coffee. He has started adding an [id number]-nbzzfxs electrolyte packet some of his water consumption. He is to begin CPAP for his obstructive sleep apnea. He denies having numbness, pain, or weakness in the upper extremities. Past Medical History: As above. There is no history of hypertension, diabetes mellitus, heart disease, lung disease, stroke, seizure, thyroid disease, cancer, renal disease. He has been taking simvastatin for about 15 years. Social History: There is no history of smoking tobacco. There is no history of illicit drug use. He has a history of excessive alcohol consumption. Since around 2014 he has been consuming about 4 cans of beer or 2 glasses of wine daily. He curtailed his alcohol consumption beginning in October 2024 and has had a total of 2 drinks of alcohol since that time. Family History: There is no family history of neuropathy, stroke, seizure, or cerebral aneurysm. Review of Systems: As above. The patient has not had any recent fever, rash, weight change, chest pain, shortness of breath, gastrointestinal problems or urinary problems. He denies having depression or anxiety. Physical Exam: General: Well-developed, well-nourished male in no acute distress. Neuro: The patient is awake and alert and responds appropriately; speech is fluent; language function is within normal limits Cranial nerves: PERRL, 3mm bilaterally; EOMI; visual castillo are full; visual acuity is 20/70 bilaterally; face is symmetrical; tongue is midline; there are no deficits to pinprick Cerebellar system: No nystagmus or dysmetria Deep tendon reflexes: Absent at the ankles, knees, biceps bilaterally, triceps bilaterally, and brachi (more content not included)... Normal [facility] ABD Limited w/ Elastographyo n 11-01-2024 ABD Limited w/ Elastography [facility] Imaging Services [address] [place], [place] [id number] ABD Limited w/ Elastography MR#: [id number] Acct: [id number] Name: RJ JOHNSON SHINE Rep #: [id number] : 1975 M 48 From: Miguel Angel lux MD PCP: Dr. Michael Santana MD Status: [facility] Study: ABD Limited w/ Elastography Date of Exam: 10/14 05/10 Exam# [id number] Ordering Dr: Michael Santana PROCEDURE: ABD LIMITED W/ ELASTOGRAPHY REASON FOR EXAM: NEW ELEVATED LFTS, ETOH. COMPARISON: None. TECHNIQUE: Right upper quadrant abdominal ultrasound. Charly ElastQ Imaging shear wave elastography for non- invasive assessment of liver tissue stiffness. Charly EPIQ Elite. FINDINGS: LIVER: Size: Enlarged (hepatomegaly) Length: 18 cm Echotexture: Diffusely echogenic suggesting fatty infiltration Contour: Normal Lesions: None identified Elastography: EQI Med: 12.3 kPa EQI Med Alex: 2.0 m/s IQR/Med: 12 %* GALLBLADDER: Normal COMMON BILE DUCT: Normal it measures 4.6 mm.. PANCREAS: Normal Visualized portions of the right kidney are unremarkable. No right upper quadrant ascites. US/ABD Limited w/ Elastography IMPRESSION: MODERATE TO SEVERE HEPATIC FIBROSIS Mild hepatomegaly and fatty infiltration of the liver. Reference Values: SRU <1.37 m/s (5.7kPa): No to mild fibrosis 1.37 m/s - 2.2 m/s: Moderate to severe fibrosis >2.2 m/s (15kPa): Significant fibrosis / cirrhosis METAVIR Score F2 or higher: 1.34 m/s (5.7kPa) F3 or higher: 1.55 m/s (7.3kPa) F4: 1.80 m/s (10kPa) * If the IQR/Med is >30%, the variance in the measurements is a large and the accuracy of the measurement may be in question. Reading Location: [place] [address] CC: Dr. Michael Santana MD Manager Installation: Signed Normal [facility] Lumbar Spine 2 or 3 Viewson 10-26-2024 Lumbar Spine 2 or 3 Views [facility] Imaging Services [address] [place] [address] Lumbar Spine 2 or 3 Views MR#: [id number] Acct: [id number] Name: RJ JOHNSON II Rep #: [id number] : 1975 M 48 From: Mg Orta MD PCP: Dr. Michael Santana MD Status: DEP AMB Study: Lumbar Spine 2 or 3 Views Date of Exam: Exam# [id number] Ordering Dr: Michael Santana EXAM: XR Lumbosacral Spine, 2 or 3 Views CLINICAL INDICATION: LEG WEAKNESS TECHNIQUE: Frontal and lateral views of the lumbar spine and sacrum. COMPARISON: No relevant prior studies available. FINDINGS: VERTEBRAE: Unremarkable. No acute fracture. Normal alignment. SACRUM/COCCYX: Unremarkable as visualized. No acute fracture. DISC SPACES: No acute findings. No significant narrowing. SOFT TISSUES: Unremarkable. RAD/Lumbar Spine 2 or 3 Views IMPRESSION: No acute fracture. Reading Location[facility] CC: Dr. Michael Santana MD Manager Installation: Signed [facility] MRI BRAIN W/O CONTRASTon MRI BRAIN W/O CONTRAST ORIGINAL EXAMINATION: MRI OF THE BRAIN WITHOUT CONTRAST 10/23/2024 11:12 am TECHNIQUE: Multiplanar multisequence MRI of the brain was performed without the administration of intravenous contrast. COMPARISON: None. HISTORY: ORDERING SYSTEM PROVIDED HISTORY: Reason for Exam: Unsteadiness on feet FINDINGS: INTRACRANIAL STRUCTURES/VENTRICLES: There is no acute infarct. No mass effect or midline shift. No evidence of an acute intracranial hemorrhage. The ventricles and sulci are mildly enlarged for patient of this age. There are several punctate foci of increased T2 signal in the periventricular and subcortical white matter, nonspecific. The sellar/suprasellar regions appear unremarkable. The normal signal voids within the major intracranial vessels appear maintained. ORBITS: The visualized portion of the orbits demonstrate no acute abnormality. SINUSES: The visualized paranasal sinuses and mastoid air cells demonstrate no acute abnormality. BONES/SOFT TISSUES: The bone marrow signal intensity appears normal. The soft tissues demonstrate no acute abnormality. IMPRESSION: 1. Mild volume loss for age. 2. No acute intracranial finding. Interpreted by: Laurent Slaughter Preliminary Report By: Laurent Slaughter Electronically signed By Laurent Slaughter Dictated Date: 10/23/2024 12:10:31 PM Prelim Date: 10/23/2024 12:11:21 PM Sign Date: 10/23/2024 12:11:21 PM Ordering Provider: MICHAEL SANTANA [facility] Celiac Disease Profileon ENDOMYSIAL IGA Negative Normal Negative [facility] Comment on above: Performed By: #### L 500.4050, L3000.0375, L3410.2400, L501.7300, L501.9100, L503.5510 ####[facility] [id number] [place], [place], [id number] IMMUNOGLOB A QN 451 mg/dL High 90-386 [facility] Comment on above: Performed By: #### L 500.4050, L3000.0375, L3410.2400, L501.7300, L501.9100, L503.5510 ####[facility] [id number] [place], [place], [id number] tTG IGA <2 Normal 0-3 [facility] Comment on above: Result Comment: Nega tive 0 - 3 Weak Positive 4 - 10 Positive >10 Tissue Transglutaminase (tTG) has been identified as the endomysial antigen. Studies have demonstr- ated that endomysial IgA antibodies have over 99% specificity for gluten sensitive enteropathy. Performed By: #### L 500.4050, L3000.0375, L3410.2400, L501.7300, L501.9100, L503.5510 ####[facility] [address] [place], [place], [id number] Hepatitis Panel Acuteon - COMMENT Comment Normal . [facility] Comment on above: Result Comment: Not infected with HCV unless early or acute infection is suspected (which may be delayed in an immunocompromised individual), or other evidence exists to indicate HCV infection. Performed at: [address] [id number] [employer]: Pablito Rubalcava PhD, Phone: [phone] Performed By: #### L 500.4050, L3000.0375, L3410.2400, L501.7300, L501.9100, L503.5510 ####[facility] [address] [place], [place], [address] HEP B CORE,IgM Negative Normal Negative [facility] Comment on above: Performed By: #### L 500.4050, L3000.0375, L3410.2400, L501.7300, L501.9100, L503.5510 ####[facility] [address] [place], [place], [id number] HEP B SURF AG Negative Normal Negative [facility] Comment on above: Performed By: #### L 500.4050, L3000.0375, L3410.2400, L501.7300, L501.9100, L503.5510 ####[facility] [address] [place], [place], [id number] HEP C VIRUS AB Non-Reactive Normal Non Reactive [facility] Comment on above: Performed By: #### L 500.4050, L3000.0375, L3410.2400, L501.7300, L501.9100, L503.5510 ####[facility] [address] [place], [place], [id number] HEPATITIS A-IgM Negative Normal Negative [facility] Comment on above: Result Comment: A ne gative anti-HAV IgM result suggests no recent or current HAV infection. Performed By: #### L 500.4050, L3000.0375, L3410.2400, L501.7300, L501.9100, L503.5510 ####[facility] [address] [place], [place], [phone] Alcohol, Blood (Medical)-Ser umon 10-16-2024 SERUM ETOH < 10.1 Normal <=10.0 [facility] Comment on above: Result Comment: This test is for medical purposes only. The legal definition of intoxication varies according to local law. Performed By: #### L 500.4050, L3000.0375, L3410.2400, L501.7300, L501.9100, L503.5510 ####[facility] [address] [place], [address] Ammoniaon 10-16-2024 Ammonia (P) [Moles/Vol] 24.7 umol/L Normal 16-60 [facility] Comment on above: Performed By: #### L 500.4050, L3000.0375, L3410.2400, L501.7300, L501.9100, L503.5510 ####[facility] [address] [place], [address] BUN/creatinine ratioOrdered By: Michael Santana on 10-16-2024 Urea nitrogen/Creatinine [Mass ratio] 13.7 mg/mg 10-20 [facility] Bilirubin, totalOrdered By: Michael Santana on 10-16-2024 Bilirubin [Mass/Vol] 1.03 mg/dL 0.00-1.30 [facility] Carbon dioxide measurementOr dered By: Michael Santana on 10-16-2024 CO2 [Moles/Vol] 24.5 mmol/L 22.0-29.0 [facility] Chloride measurementOrdered By: Michael Santana on 10-16-2024 Chloride [Moles/Vol] 92 mmol/L Low 96-108 [facility] Comprehensive Metabolic Prof ilon 10-16-2024 Albumin [Mass/Vol] 3.8 g/dL Normal 3.5-5.0 [facility] Comment on above: Performed By: #### L 500.4050, L3000.0375, L3410.2400, L501.7300, L501.9100, L503.5510 ####[facility] [address] [place], [place], [id number] Albumin/Globulin [Mass ratio] 1.0 {ratio} Normal 0.9-2.4 [facility] Comment on above: Performed By: #### L 500.4050, L3000.0375, L3410.2400, L501.7300, L501.9100, L503.5510 ####[facility] [address] [place], [address] ALK PHOS 68 U/L Normal 40-129 [facility] Comment on above: Performed By: #### L 500.4050, L3000.0375, L3410.2400, L501.7300, L501.9100, L503.5510 ####[facility] [address] [place], [address] ALT [Catalytic activity/Vol] 94 U/L High <=46 [facility] Comment on above: Performed By: #### L 500.4050, L3000.0375, L3410.2400, L501.7300, L501.9100, L503.5510 ####[facility] [address] [place], [address] Anion gap [Moles/Vol] 11 mmol/L Normal 5-15 [facility] Comment on above: Performed By: #### L 500.4050, L3000.0375, L3410.2400, L501.7300, L501.9100, L503.5510 ####[facility] [address] [place], [address] AST [Catalytic activity/Vol] 93 U/L High <=37 [facility] Comment on above: Performed By: #### L 500.4050, L3000.0375, L3410.2400, L501.7300, L501.9100, L503.5510 ####[facility] [address] [place], [address] Bilirubin [Mass/Vol] 1.03 mg/dL Normal 0.00-1.30 [facility] Comment on above: Performed By: #### L 500.4050, L3000.0375, L3410.2400, L501.7300, L501.9100, L503.5510 ####[facility] [address] [place], [address] BUN/CRE 13.7 RATIO Normal 10-20 [facility] Comment on above: Performed By: #### L 500.4050, L3000.0375, L3410.2400, L501.7300, L501.9100, L503.5510 ####[facility] [address] [place], [address] Calcium [Mass/Vol] 9.2 mg/dL Normal 7.6-11.0 [facility] Comment on above: Performed By: #### L 500.4050, L3000.0375, L3410.2400, L501.7300, L501.9100, L503.5510 ####[facility] [address] [place], [address] Chloride [Moles/Vol] 92 mmol/L Low 96-108 [facility] Comment on above: Performed By: #### L 500.4050, L3000.0375, L3410.2400, L501.7300, L501.9100, L503.5510 ####[facility] [address] [place], [address] CO2 [Moles/Vol] 24.5 mmol/L Normal 22.0-29.0 [facility] Comment on above: Performed By: #### L 500.4050, L3000.0375, L3410.2400, L501.7300, L501.9100, L503.5510 ####[facility] [address] [place], [address] Creatinine [Mass/Vol] 1.01 mg/dL Normal 0.70-1.20 [facility] Comment on above: Performed By: #### L 500.4050, L3000.0375, L3410.2400, L501.7300, L501.9100, L503.5510 ####[facility] [address] [place], [address] GFR/1.73 sq M.predicted among non-blacks MDRD (S/P/Bld) [Vol rate/Area] 92 mL/min/{1.73_m2} Normal >60 [facility] Comment on above: Result Comment: mL/m in/1.73m2 CKD-EPI Creatinine Equation (2020) Performed By: #### L 500.4050, L3000.0375, L3410.2400, L501.7300, L501.9100, L503.5510 ####[facility] [address] [place], [address] Globulin (S) [Mass/Vol] 4.0 g/dL Normal 2.2-4.2 [facility] Comment on above: Performed By: #### L 500.4050, L3000.0375, L3410.2400, L501.7300, L501.9100, L503.5510 ####[facility] [address] [place], [address] Glucose [Mass/Vol] 101 mg/dL High 70-99 [facility] Comment on above: Performed By: #### L 500.4050, L3000.0375, L3410.2400, L501.7300, L501.9100, L503.5510 ####[facility] [address] [place], [address] Potassium [Moles/Vol] 3.9 mmol/L Normal 3.3-5.1 [facility] Comment on above: Performed By: #### L 500.4050, L3000.0375, L3410.2400, L501.7300, L501.9100, L503.5510 ####[facility] [address] [place], [address] Sodium [Moles/Vol] 128 mmol/L Low 133-145 [facility] Comment on above: Performed By: #### L 500.4050, L3000.0375, L3410.2400, L501.7300, L501.9100, L503.5510 ####[facility] [address] [place], [place], [id number] T PROT 7.8 g/dL Normal 5.9-8.4 [facility] Comment on above: Performed By: #### L 500.4050, L3000.0375, L3410.2400, L501.7300, L501.9100, L503.5510 ####[facility] [address] [place], [place], [address] Urea nitrogen [Mass/Vol] 14 mg/dL Normal 4-19 [facility] Comment on above: Performed By: #### L 500.4050, L3000.0375, L3410.2400, L501.7300, L501.9100, L503.5510 ####[facility] [address] [place], [place], [address] Endomysial IgA antibody assa yOrdered By: Michael Santana on 10-16-2024 Endomysial IgA Antibody Negative Negative [facility] Ethanol [Mass/Vol]Ordered By : Michael Santana on 10-16-2024 Ethyl Alcohol Level < 10.1 mg/dL <10.1 [facility] Comment on above: This test is for med ical purposes only. The legal definition of intoxication varies according to local law. GFR/1.73 sq M.predicted devin g non-blacks MDRD (S/P/Bld) [Vol rate/Area]Ordered By: Michael Santana on 10-16-2024 Estimated GFR (MDRD) Non-Af Amer 92 >60 [facility] Comment on above: mL/min/1.73m2 CKD-EP I Creatinine Equation (2020) Glomerular filtration rate ( GFR) estimation/1.73 sq m using serum, plasma, or whole bOrdered By: Michael Santana on 10-16-2024 GFR/1.73 sq M.predicted among non-blacks MDRD (S/P/Bld) [Vol rate/Area] 92 mL/min/{1.73_m2} >60 [facility] Comment on above: mL/min/1.73m2 CKD-EP I Creatinine Equation (2020) HBV surface Ag IA QlOrdered By: Michael Santana on 10-16-2024 Hepatitis B Surface Antigen Negative Negative [facility] Hepatitis A virus IgM antibo dy assayOrdered By: Michael Santana on 10-16-2024 Hepatitis A IgM Antibody Negative Negative [facility] Comment on above: A negative anti-HAV IgM result suggests no recent orcurrent HAV infection. Hepatitis B virus core IgM a ntibody assayOrdered By: Michael Santana on 10-16-2024 Hepatitis B Core IgM Antibody Negative Negative [facility] Hepatitis C virus antibody a ssayOrdered By: Michael Santana on 10-16-2024 Hepatitis C Antibody (EIA) Non-Reactive Non Reactive [facility] IgA [Mass/Vol]Ordered By: Kolton Santana on 10-16-2024 Immunoglobulin A 451 mg/dL High 90-386 [facility] Laboratory - Chemistry and C hemistry - challengeOrdered By: Michael Santana on 10-16-2024 AST [Catalytic activity/Vol] 93 U/L High <38 [facility] No Panel InformationOrdered By: Michael Santana on 10-16-2024 Hepatitis C Antibody Comment Comment . [facility] Comment on above: Not infected with HC V unless early or acute infection issuspected (which may be delayed in an immunocompromisedindividual), or other evidence exists to indicate HCVinfection.Performed at: - [facility] [id number] [place], [place] [id number] Director: Pablito Rubalcava PhD, Phone: [phone] Osmolality, Serumon 10-17-19 25 OSMOLALITY,SER 268 mOsm/KG Low 275-295 [facility] Comment on above: Performed By: #### L 500.4050, L3000.0375, L3410.2400, L501.7300, L501.9100, L503.5510 ####[facility] [address] [place], [address] Osmolality, serumOrdered By: Michael Santana on 10-16-2024 Serum Osmolality 268 mOsm/KG Low 275-295 [facility] Serum creatinine measurement (mass/volume)Ordered By: Michael Santana on 10-16-2024 Creatinine [Mass/Vol] 1.01 mg/dL 0.70-1.20 [facility] Serum globulin measurementOr dered By: Michael Santana on 10-16-2024 Globulin (S) [Mass/Vol] 4.0 g/dL 2.2-4.2 [facility] Serum glucose measurement (m ass/volume)Ordered By: Michael Santana on 10-16-2024 Glucose [Mass/Vol] 101 mg/dL High 70-99 [facility] Serum or plasma IgA measurem ent (mass/volume)Ordered By: Michael Santana on 10-16-2024 IgA [Mass/Vol] 451 mg/dL High 90-386 [facility] Serum or plasma alanine bruno otransferase (ALT) measurementOrdered By: Michael Santana on 10-16-2024 ALT [Catalytic activity/Vol] 94 U/L High <47 [facility] Serum or plasma albumin calros urement (mass/volume)Ordered By: Michael Santana on 10-16-2024 Albumin [Mass/Vol] 3.8 g/dL 3.5-5.0 [facility] Serum or plasma albumin/glob ulin mass ratioOrdered By: Michael Santana on 10-16-2024 Albumin/Globulin [Mass ratio] 1.0 {ratio} 0.9-2.4 [facility] Serum or plasma alkaline ann sphatase measurementOrdered By: Michael Santana on 10-16-2024 ALP [Catalytic activity/Vol] 68 U/L 40-129 [facility] Serum or plasma anion gap de termination (moles/volume)Ordered By: Michael Santana on 10-16-2024 Anion gap [Moles/Vol] 11 mmol/L 5-15 [facility] Serum or plasma calcium carlos urement (mass/volume)Ordered By: Michael Santana on 10-16-2024 Calcium [Mass/Vol] 9.2 mg/dL 7.6-11.0 [facility] Serum or plasma ethanol carlos urement (mass/volume)Ordered By: Michael Santana on 10-16-2024 Ethanol [Mass/Vol] mg/dL <10.1 [facility] Comment on above: This test is for med ical purposes only. The legal definition of intoxication varies according to local law. Serum or plasma hepatitis B virus surface antigen detection by immunoassayOrdered By: Michael Santana on 10-16-2024 HBV surface Ag IA Ql Negative Negative [facility] Serum or plasma potassium me asurementOrdered By: Michael Santana on 10-16-2024 Potassium [Moles/Vol] 3.9 mmol/L 3.3-5.1 [facility] Serum or plasma sodium measu rement (moles/volume)Ordered By: Michael Santana on 10-16-2024 Sodium [Moles/Vol] 128 mmol/L Low 133-145 [facility] Serum or plasma urea nitroge n measurement (mass/volume)Ordered By: Michael Santana on 10-16-2024 Urea nitrogen [Mass/Vol] 14 mg/dL 4-19 [facility] Serum tissue transglutaminas e (tTG) IgA antibody assay (units/volume)Ordered By: Michael Santana on 10-16-2024 tTG IgA Qn (S) <2 U/mL 0-3 [facility] Comment on above: Negative 0 - 3 Weak Positive 4 - 10 Positive >10 Tissue Transglutaminase (tTG) has been identified as the endomysial antigen. Studies have demonstr- ated that endomysial IgA antibodies have over 99% specificity for gluten sensitive enteropathy. Total proteinOrdered By: Sangeeta Santana on 10-16-2024 Protein [Mass/Vol] 7.8 g/dL 5.9-8.4 [facility] Venous blood ammonia measure mentOrdered By: Michael Santana on 10-16-2024 Ammonia (P) [Moles/Vol] 24.7 umol/L 16-60 [facility] tTG IgA Qn (S)Ordered By: Kolton Santana on 10-16-2024 Tissue Transglutaminase IgA Ab <2 U/mL 0-3 [facility] Comment on above: Negative 0 - 3 Weak Positive 4 - 10 Positive >10 Tissue Transglutaminase (tTG) has been identified as the endomysial antigen. Studies have demonstr- ated that endomysial IgA antibodies have over 99% specificity for gluten sensitive enteropathy. L501.5101on 10-12-2024 GGTP 424 IU/L Abnormal 0-65 [facility] Comment on above: Order Comment: Test( s) 213658-Quo. B1, Whole Bloodwas developed and its performance characteristicsdetermined by [employer]. It has not been cleared or approvedby the Food and Drug Administration. Result Comment: Perf ormed at: [address] [id number] [employer]: Felicia Garcia MD, Phone: [phone] Performed at: [address] [id number] [employer]: Pablito Rubalcava PhD, Phone: [phone] Performed By: #### L 500.4100, L4.2010, L500.4050, L100.0100, L503.6550, L505.5000, L506.1000, L501.5101, L503.6150, L502.0500, L101.9900, L501.9520, L503.0105, L501.5200, L3300.8000 ####[facility] [address] [place], [place], [id number] Vitamin B1, Thiamineon 10-12 VIT B1 THIAMINE 68.5 nmol/L Normal 66.5-200.0 [facility] Comment on above: Order Comment: Test( s) 264174-Rsb. B1, Whole Bloodwas developed and its performance characteristicsdetermined by [employer]. It has not been cleared or approvedby the Food and Drug Administration. Performed By: #### L 500.4100, L4.2010, L500.4050, L100.0100, L503.6550, L505.5000, L506.1000, L501.5101, L503.6150, L502.0500, L101.9900, L501.9520, L503.0105, L501.5200, L3300.8000 ####[facility] [address] [place], [address] Colonoscopy Reporton 025 Colonoscopy Report [facility] Medical Records Department [address] [place] [address] Colonoscopy Report MR#: [id number] Acct: [id number] Name: RJ JOHNSON II Rep #: [id number] : 1975 48 From: Paddy Lanza MD PCP: Dr. Michael Santana MD Status:[facility] Patient Name: Rj Johnson Procedure Date: 10/10/2024 9:00 AM Date of : 1975 Age: 48 Procedure: Colonoscopy Indications: Screening for colorectal malignant neoplasm Providers: Paddy Lanza MD Referring MD: Paddy Lanza MD Medicines: Propofol per Anesthesia Patient Profile: This is a 48 year old male. Refer to note in patient chart for documentation of history and physical. Last Colonoscopy: none. The patient's first colonoscopy is today. Complications: No immediate complications. Estimated blood loss: Minimal. Procedure: Pre-Anesthesia Assessment: - Prior to the procedure, a History and Physical was performed, and patient medications and allergies were reviewed. The patient's tolerance of previous anesthesia was also reviewed. The risks and benefits of the procedure and the sedation options and risks were discussed with the patient. All questions were answered, and informed consent was obtained. Prior Anticoagulants: The patient has taken no anticoagulant or antiplatelet agents. After reviewing the risks and benefits, the patient was deemed in satisfactory condition to undergo the procedure. After I obtained informed consent, the scope was passed under direct vision. Throughout the procedure, the patient's blood pressure, pulse, and oxygen saturations were monitored continuously. The colonoscope was introduced through the anus and advanced to the ileocecal valve. The colonoscopy was performed without difficulty. The patient tolerated the procedure well. The quality of the bowel preparation was good. The ileocecal valve, appendiceal orifice, and rectum were photographed. Scope In: 10:04:28 AM Scope Withdrawal Time 0 hours 5 minutes 52 seconds Scope Out: 10:15:32 AM Total Procedure Duration Time 0 hours 11 minutes 4 seconds Findings: A large polyp was found in the rectum. The polyp was semi-pedunculated. The polyp was removed with a hot snare. Resection and retrieval were complete. The exam was otherwise without abnormality on direct and retroflexion views. Impression: - One large polyp in the rectum, removed with a hot snare. Resected and retrieved. - The examination was otherwise normal on direct and retroflexion views. Recommendation: - Discharge patient to home. - Resume previous diet. - Continue present medications. - Await pathology results. - Repeat colonoscopy in 3 years for surveillance. Procedure Code(s): --- Professional --- 51020, 33, Colonoscopy, flexible; with removal of tumor(s), polyp(s), or other lesion(s) by snare technique Diagnosis Code(s): --- Professional --- Z12.11, Encounter for screening for malignant neoplasm of colon D12.8, Benign neoplasm of rectum CPT copyright 2021 [employer]. All rights reserved. The codes documented in this report are preliminary and upon soda jerker review may be revised to meet current compliance requirements. Paddy Lanza MD 10/10/2024 10:19:35 AM This report has been signed electronically. Number of Addenda: 0 Note Initiated On: 10/10/2024 9:00 AM 10/10/24 1019 Date Paddy Lanza MD Cosigner Signature: Date (if indicated) CC: Dr. Paddy Lanza MD; Dr. Michael Santana MD Date Dictated: 10/10/24 0900 Date Transcribed: Manager Installation: JORDYN Signed [facility] MR/POSTOP.Michaela 10-10-2024 MR/POSTOP.[facility] Medical Records Department [address] [place] [address] Anesthesia Postop Eval I 10/10/24 1024 MR#: [id number] Acct: [id number] Name: RJ JOHNSON II Rep #: [id number] : 1975 48 From: Brandon Bess PCP: Dr. Michael Santana MD Status:[facility] Y Race: C Location: [place] [address] Anesthesia: Postop Eval I Current Vital Signs Temperature: 99 F Pulse Rate: 77 Blood Pressure: 107/74 Respiratory Rate: 16 Pulse Ox: 97 Oxygen Delivery Method: Room Air Assessment Airway patent: Yes Spontaneous unlabored respirations: Yes Mental status: Asleep nausea: No Vomiting: No Anesthesia Complication: No Fluid Hydration Crystalloid volume administer (ml): 200 Total IV fluid infused: 200 Progress Note Anesthesia document: Postop Eval 1 completed: Yes 10/10/24 1025 Date Brandon Garcia Signature: Date CC: Signed Normal [facility] MR/[id number] 10-10-2024 [facility] Medical Records Department [address] [place] [address] Anesthesia Postop Eval II 10/10/24 1833 MR#: [id number] Acct: [id number] Name: RJ JOHNSON II Rep #: [id number] : 1975 48 From: Obed Ramsay MD PCP: Dr. Michael Santana MD Status:[facility] Y Race: C Location: EN Anesthesia Postop Eval I Sum Postop Eval Completion status Anesthesia document: Postop Eval 1 completed: Yes Anesthesia Postop Eval I Summary Anesthesia Postop Eval I Summary: Anesthesia Postop Eval I: Assessment Summary Airway patent Yes 10/10/24 10:25 [email or web address] Spontaneous unlabored Yes 10/10/24 10:25 [email or web address] respirations Mental status Asleep 10/10/24 10:25 [email or web address] nausea No 10/10/24 10:25 [email or web address] Vomiting No 10/10/24 10:25 [email or web address] Anesthesia Postop Eval I: Fluid Summary Crystalloid volume administer 200 10/10/24 10:25 [email or web address] (ml) Colloids volume administered ( ml) Blood Product volume administered (ml) Total IV fluid infused 200 10/10/24 10:25 [email or web address] Anesthesia Postop Eval I: Summary Notes Anesthesia Complication No 10/10/24 10:25 [email or web address] Anesthesia Complication Comment: Post-operative progress note Anesthesia: Postop Eval II Evaluation Mental status: Awake and Calm Pain Level: 0 nausea: No Vomiting: No Progress Note Post-operative progress note: Blood pressure is much improved in PACU. Complications Anesthesia Complication: No 10/10/24 183 Date Obed Garcia Signature: Date CC: Signed Normal [facility] Surgery Specimen Level Karolyn 10-10-2024 Surgery Specimen Level IV Patient Age/Sex Location Account Attending Physician RJ JOHNSON II 48/M EN [id number] Dr. Paddy Lanza MD Specimen: [id number] Received: 10/10/24 Status: RODRIGO Freeman Num: [id number] Spec Type: COLON BX Subm Dr: Dr. Paddy Lanza MD HEADER OPERATION: Colonoscopy, polypectomy PRE-OP DIAGNOSIS: Encounter for screening for malignant neoplasm of colon TISSUE SUBMITTED: Rectal polyp MICROSCOPIC DIAGNOSIS Rectal polyp, polypectomy: Tubular adenoma. 10/11/2024 MICROSCOPIC DESCRIPTION Slides are reviewed. GROSS DESCRIPTION Received in fixative is one container labeled with the patient's name and designated Rectal polyp. The specimen consists of a pink-red polyp measuring 1.5 x 1.5 x 1 cm. The presumed base is inked. The polyp is serially sectioned and submitted entirely in one cassette. 10/10/2024 TC:1 CPT:09610 Patient Age/Sex Location Account Attending Physician ERNESTORJ BARLOW SHINE 48/M EN [id number] Dr. Paddy Lanza MD Signed (signature on file) Dr. Ignacio Torres MD 10/11/24 1145 Normal [facility] Comment on above: Performed By: #### P SUIV ####[facility] [address] [place], [place], [id number] Ironon 10-07-2024 Iron [Mass/Vol] 107 ug/dL Normal 65-175 [facility] Comment on above: Order Comment: Order Date: 09/03/24Order Info: 2857-1 - PSA DR RACIEL FREDERICK Performed By: #### L 500.4100, L400.2010, L500.4050, L100.0100, L503.6550, L505.5000, L506.1000, L501.5101, L503.6150, L502.0500, L101.9900, L501.9520, L503.0105, L501.5200, L3300.8000 ####[facility] [address] [place], [place], [address] Magnesiumon 10-07-2024 Magnesium [Mass/Vol] 2.9 mg/dL High 1.6-2.6 [facility] Comment on above: Order Comment: Order Date: 09/03/24Order Info: 2857-1 - PSA DR RACIEL JAFFED FIDELIA FREDERICK Performed By: #### L 500.4100, L400.2010, L500.4050, L100.0100, L503.6550, L505.5000, L506.1000, L501.5101, L503.6150, L502.0500, L101.9900, L501.9520, L503.0105, L501.5200, L3300.8000 ####[facility] [address] [place], [place], [address] Urinalysis, Routine (Dipstic k)on 10-07-2024 BILIRUBIN URINE Normal Negative [facility] Comment on above: Order Comment: Urine , Random Result Comment: URIN E NOT IF TUBES, TOO OLD TO RUN Performed By: #### L 500.4100, L400.2010, L500.4050, L100.0100, L503.6550, L505.5000, L506.1000, L501.5101, L503.6150, L502.0500, L101.9900, L501.9520, L503.0105, L501.5200, L3300.8000 ####[facility] [address] [place], [place], [address] Clarity (U) Normal Clear [facility] Comment on above: Order Comment: Urine , Random Result Comment: URIN E NOT IF TUBES, TOO OLD TO RUN Performed By: #### L 500.4100, L400.2010, L500.4050, L100.0100, L503.6550, L505.5000, L506.1000, L501.5101, L503.6150, L502.0500, L101.9900, L501.9520, L503.0105, L501.5200, L3300.8000 ####[facility] [address] [place], [place], [phone] Color (U) Normal Yellow [facility] Comment on above: Order Comment: Urine , Random Result Comment: URIN E NOT IF TUBES, TOO OLD TO RUN Performed By: #### L 500.4100, L400.2010, L500.4050, L100.0100, L503.6550, L505.5000, L506.1000, L501.5101, L503.6150, L502.0500, L101.9900, L501.9520, L503.0105, L501.5200, L3300.8000 ####[facility] [address] [place], [place], [phone] GLUCOSE, UR Normal Normal [facility] Comment on above: Order Comment: Urine , Random Result Comment: URIN E NOT IF TUBES, TOO OLD TO RUN Performed By: #### L 500.4100, L400.2010, L500.4050, L100.0100, L503.6550, L505.5000, L506.1000, L501.5101, L503.6150, L502.0500, L101.9900, L501.9520, L503.0105, L501.5200, L3300.8000 ####[facility] [address] [place], [place], [phone] KETONE UR Normal Negative [facility] Comment on above: Order Comment: Urine , Random Result Comment: URIN E NOT IF TUBES, TOO OLD TO RUN Performed By: #### L 500.4100, L400.2010, L500.4050, L100.0100, L503.6550, L505.5000, L506.1000, L501.5101, L503.6150, L502.0500, L101.9900, L501.9520, L503.0105, L501.5200, L3300.8000 ####[facility] [address] [place], [place], [phone] LEUK ESTERASE Normal Negative [facility] Comment on above: Order Comment: Urine , Random Result Comment: URIN E NOT IF TUBES, TOO OLD TO RUN Performed By: #### L 500.4100, L400.2010, L500.4050, L100.0100, L503.6550, L505.5000, L506.1000, L501.5101, L503.6150, L502.0500, L101.9900, L501.9520, L503.0105, L501.5200, L3300.8000 ####[facility] [address] [place], [place], [phone] Nitrite Ql (U) Normal Negative [facility] Comment on above: Order Comment: Urine , Random Result Comment: URIN E NOT IF TUBES, TOO OLD TO RUN Performed By: #### L 500.4100, L400.2010, L500.4050, L100.0100, L503.6550, L505.5000, L506.1000, L501.5101, L503.6150, L502.0500, L101.9900, L501.9520, L503.0105, L501.5200, L3300.8000 ####[facility] [address] [place], [place], [id number] OCCULT BLOOD-UR Normal Negative [facility] Comment on above: Order Comment: Urine , Random Result Comment: URIN E NOT IF TUBES, TOO OLD TO RUN Performed By: #### L 500.4100, L400.2010, L500.4050, L100.0100, L503.6550, L505.5000, L506.1000, L501.5101, L503.6150, L502.0500, L101.9900, L501.9520, L503.0105, L501.5200, L3300.8000 ####[facility] [address] [place], [place], [phone] pH UR Normal 5.0 - 8.0 [facility] Comment on above: Order Comment: Urine , Random Result Comment: URIN E NOT IF TUBES, TOO OLD TO RUN Performed By: #### L 500.4100, L400.2010, L500.4050, L100.0100, L503.6550, L505.5000, L506.1000, L501.5101, L503.6150, L502.0500, L101.9900, L501.9520, L503.0105, L501.5200, L3300.8000 ####[facility] [address] [place], [address] PROT DIPSTX Normal Negative [facility] Comment on above: Order Comment: Urine , Random Result Comment: URIN E NOT IF TUBES, TOO OLD TO RUN Performed By: #### L 500.4100, L400.2010, L500.4050, L100.0100, L503.6550, L505.5000, L506.1000, L501.5101, L503.6150, L502.0500, L101.9900, L501.9520, L503.0105, L501.5200, L3300.8000 ####[facility] [address] [place], [place], [phone] SP.GR. DIPSTX Normal 1.002-1.03 0 [facility] Comment on above: Order Comment: Urine , Random Result Comment: URIN E NOT IF TUBES, TOO OLD TO RUN Performed By: #### L 500.4100, L400.2010, L500.4050, L100.0100, L503.6550, L505.5000, L506.1000, L501.5101, L503.6150, L502.0500, L101.9900, L501.9520, L503.0105, L501.5200, L3300.8000 ####[facility] [address] [place], [address] UR Preservative Normal [facility] Comment on above: Order Comment: Urine , Random Result Comment: URIN E NOT IF TUBES, TOO OLD TO RUN Performed By: #### L 500.4100, L400.2011, L500.4050, L100.0100, L503.6550, L505.5000, L506.1000, L501.5101, L503.6150, L502.0500, L101.9900, L501.9520, L503.0105, L501.5200, L3300.8000 ####[facility] [address] [place], [place], [phone] UROBILI Normal Normal [facility] Comment on above: Order Comment: Urine , Random Result Comment: URIN E NOT IF TUBES, TOO OLD TO RUN Performed By: #### L 500.4100, L400.2011, L500.4050, L100.0100, L503.6550, L505.5000, L506.1000, L501.5101, L503.6150, L502.0500, L101.9900, L501.9520, L503.0105, L501.5200, L3300.8000 ####[facility] [address] [place], [place], [phone] 55-GQ-Xliyxog DOrdered By: Jhoan Schrader on 10-06-2024 Vitamin D 25-Hydroxy 8.0 ng/mL [facility] Comment on above: Vitamin D 25([place]) Sta tus Range Deficiency <20 ng/mL (50nmol/L) Insufficiency 20 - 30 ng/mL (50 - 75 nmol/L) Sufficiency 30 - 100 ng/mL (75 - 250 nmol/L) Toxicity >100 ng/mL (>250 nmol/L) Absolute lymphocyte countOrd ered By: Liudmila Schrader on 10-06-2024 Lymphocytes Auto (Unsp spec) [#/Vol] 0.80 10*3/uL Low 0.83-4.51 [facility] Absolute neutrophil countOrd ered By: Liudmila Schrader on 10-06-2024 Neutrophils (Bld) [#/Vol] 3.2 10*3/uL 2.0-7.7 [facility] Albumin to globulin ratioOrd ered By: Liudmila Schrader on 10-06-2024 Albumin/Globulin [Mass ratio] 0.7 {ratio} Low 0.9-2.4 [facility] Automated lymphocyte count a s percentage of total leukocytesOrdered By: Liudmila Schrader on 10-06-2024 Lymphocytes/100 WBC Auto (Unsp spec) 16.9 % Low 19-41 [facility] Basophil percentageOrdered B y: Liudmila Schrader on 10-06-2024 Basophils/100 WBC (Bld) 1.1 % High 0-1 [facility] Bilirubin, totalOrdered By: Liudmila Schrader on 10-06-2024 Bilirubin [Mass/Vol] 0.60 mg/dL 0.20-1.00 [facility] Comment on above: For patients on eltr ombopag therapy, use of Dimension [place] TBIL is not recommended. Blood urea nitrogen (BUN)/cr eatinine ratioOrdered By: Liudmila Schrader on 10-06-2024 Urea nitrogen/Creatinine [Mass ratio] 11.4 mg/mg 10-20 [facility] CBC W/Diff, Automatedon 09-17 Absolute Lymph 0.80 X10 3/uL Low 0.83-4.51 [facility] Comment on above: Performed By: #### L 500.4100, L400.2010, L500.4050, L100.0100, L503.6550, L505.5000, L506.1000, L501.5101, L503.6150, L502.0500, L101.9900, L501.9520, L503.0105, L501.5200, L3300.8000 #### [facility] [address] [place], [place], [phone] Absolute Neut 3.2 X10 3/uL Normal 2.0-7.7 [facility] Comment on above: Performed By: #### L 500.4100, L4.2010, L500.4050, L100.0100, L503.6550, L505.5000, L506.1000, L501.5101, L503.6150, L502.0500, L101.9900, L501.9520, L503.0105, L501.5200, L3300.8000 #### [facility] [address] [place], [address] Basophils/100 WBC (Bld) 1.1 % High 0-1 [facility] Comment on above: Performed By: #### L 500.4100, L400.2010, L500.4050, L100.0100, L503.6550, L505.5000, L506.1000, L501.5101, L503.6150, L502.0500, L101.9900, L501.9520, L503.0105, L501.5200, L3300.8000 #### [facility] [address] [place], [address] Eosinophils/100 WBC (Bld) 0.6 % Normal 0-5 [facility] Comment on above: Performed By: #### L 500.4100, L400.2010, L500.4050, L100.0100, L503.6550, L505.5000, L506.1000, L501.5101, L503.6150, L502.0500, L101.9900, L501.9520, L503.0105, L501.5200, L3300.8000 #### [facility] [address] [place], [address] Erythrocyte distribution width (RBC) [Ratio] 11.5 % Low 11.6-14.6 [facility] Comment on above: Performed By: #### L 500.4100, L400.2010, L500.4050, L100.0100, L503.6550, L505.5000, L506.1000, L501.5101, L503.6150, L502.0500, L101.9900, L501.9520, L503.0105, L501.5200, L3300.8000 #### [facility] [address] [place], [address] Hematocrit (Bld) [Volume fraction] 32.4 % Low 40-54 [facility] Comment on above: Performed By: #### L 500.4100, L400.2011, L500.4050, L100.0100, L503.6550, L505.5000, L506.1000, L501.5101, L503.6150, L502.0500, L101.9900, L501.9520, L503.0105, L501.5200, L3300.8000 #### [facility] [address] [place], [address] Hemoglobin (Bld) [Mass/Vol] 11.5 g/dL Low 13.0-16.5 [facility] Comment on above: Performed By: #### L 500.4100, L400.2010, L500.4050, L100.0100, L503.6550, L505.5000, L506.1000, L501.5101, L503.6150, L502.0500, L101.9900, L501.9520, L503.0105, L501.5200, L3300.8000 #### [facility] [address] [place], [address] IG% 0.400 Normal 0.0-0.9 [facility] Comment on above: Result Comment: IG% - Immature Granulocytes (promyelocytes, myelocytes and metamyelocytes) > 1% indicates that a LEFT SHIFT is Present. Performed By: #### L 500.4100, L400.2010, L500.4050, L100.0100, L503.6550, L505.5000, L506.1000, L501.5101, L503.6150, L502.0500, L101.9900, L501.9520, L503.0105, L501.5200, L3300.8000 #### [facility] [address] [place], [address] Lymphocytes/100 WBC (Bld) 16.9 % Low 19-41 [facility] Comment on above: Performed By: #### L 500.4100, L4.2010, L500.4050, L100.0100, L503.6550, L505.5000, L506.1000, L501.5101, L503.6150, L502.0500, L101.9900, L501.9520, L503.0105, L501.5200, L3300.8000 #### [facility] [address] [place], [address] MCH (RBC) [Entitic mass] 33.0 pg High 27.0-32.0 [facility] Comment on above: Performed By: #### L 500.4100, L4.2010, L500.4050, L100.0100, L503.6550, L505.5000, L506.1000, L501.5101, L503.6150, L502.0500, L101.9900, L501.9520, L503.0105, L501.5200, L3300.8000 #### [facility] [address] [place], [address] MCHC (RBC) [Mass/Vol] 35.5 g/dL Normal 32-36 [facility] Comment on above: Performed By: #### L 500.4100, L4, L500.4050, L100.0100, L503.6550, L505.5000, L506.1000, L501.5101, L503.6150, L502.0500, L101.9900, L501.9520, L503.0105, L501.5200, L3300.8000 #### [facility] [address] [place], [address] MCV (RBC) [Entitic vol] 93.1 fL Normal 80-94 [facility] Comment on above: Performed By: #### L 500.4100, L4, L500.4050, L100.0100, L503.6550, L505.5000, L506.1000, L501.5101, L503.6150, L502.0500, L101.9900, L501.9520, L503.0105, L501.5200, L3300.8000 #### [facility] [address] [place], [address] Monocytes/100 WBC (Bld) 13.1 % High 0-10 [facility] Comment on above: Performed By: #### L 500.4100, L400.2010, L500.4050, L100.0100, L503.6550, L505.5000, L506.1000, L501.5101, L503.6150, L502.0500, L101.9900, L501.9520, L503.0105, L501.5200, L3300.8000 #### [facility] [address] [place], [address] Neutrophils/100 WBC (Bld) 67.9 % Normal 47-70 [facility] Comment on above: Performed By: #### L 500.4100, L400.2010, L500.4050, L100.0100, L503.6550, L505.5000, L506.1000, L501.5101, L503.6150, L502.0500, L101.9900, L501.9520, L503.0105, L501.5200, L3300.8000 #### [facility] [address] [place], [address] Nucleated RBC (Bld) [#/Vol] 0 10*3/uL Normal 0-5 [facility] Comment on above: Performed By: #### L 500.4100, L400.2010, L500.4050, L100.0100, L503.6550, L505.5000, L506.1000, L501.5101, L503.6150, L502.0500, L101.9900, L501.9520, L503.0105, L501.5200, L3300.8000 #### [facility] [address] [place], [address] Platelet mean volume (Bld) [Entitic vol] 8.2 fL Normal 6.2-12.0 [facility] Comment on above: Performed By: #### L 500.4100, L400.2010, L500.4050, L100.0100, L503.6550, L505.5000, L506.1000, L501.5101, L503.6150, L502.0500, L101.9900, L501.9520, L503.0105, L501.5200, L3300.8000 #### [facility] [address] [place], [address] Platelets (Bld) [#/Vol] 192 10*3/uL Normal 150-450 [facility] Comment on above: Performed By: #### L 500.4100, L400.2010, L500.4050, L100.0100, L503.6550, L505.5000, L506.1000, L501.5101, L503.6150, L502.0500, L101.9900, L501.9520, L503.0105, L501.5200, L3300.8000 #### [facility] [address] [place], [address] RBC (Bld) [#/Vol] 3.48 10*6/uL Low 4.6-6.2 [facility] Comment on above: Performed By: #### L 500.4100, L400.2010, L500.4050, L100.0100, L503.6550, L505.5000, L506.1000, L501.5101, L503.6150, L502.0500, L101.9900, L501.9520, L503.0105, L501.5200, L3300.8000 #### [facility] [address] [place], [address] RDW SD 38.8 fl Normal 35.1-43.9 [facility] Comment on above: Performed By: #### L 500.4100, L400.2010, L500.4050, L100.0100, L503.6550, L505.5000, L506.1000, L501.5101, L503.6150, L502.0500, L101.9900, L501.9520, L503.0105, L501.5200, L3300.8000 #### [facility] [address] [place], [place], [id number] WBC (Bld) [#/Vol] 4.7 10*3/uL Normal 4.4-11.0 [facility] Comment on above: Performed By: #### L 500.4100, L400.2010, L500.4050, L100.0100, L503.6550, L505.5000, L506.1000, L501.5101, L503.6150, L502.0500, L101.9900, L501.9520, L503.0105, L501.5200, L3300.8000 #### [facility] [address] [place], [place], [phone] Carbon dioxide measurementOr dered By: Liudmila Schrader on 10-06-2024 CO2 [Moles/Vol] 24.0 mmol/L 21.0-32.0 [facility] Chloride measurementOrdered By: Liudmila Schrader on 10-06-2024 Chloride [Moles/Vol] 92 mmol/L Low 98-107 [facility] Comprehensive Metabolic Prof ilon 10-06-2024 Albumin [Mass/Vol] 3.5 g/dL Normal 3.2-5.0 [facility] Comment on above: Order Comment: Order Date: 09/03/24 Order Info: 2857-1 - PSA DR SCHRADER ORDERD PSA DR SANTANA ORDERD Performed By: #### L 500.4100, L4.2010, L500.4050, L100.0100, L503.6550, L505.5000, L506.1000, L501.5101, L503.6150, L502.0500, L101.9900, L501.9520, L503.0105, L501.5200, L3300.8000 #### [facility] [address] [place], [address] Albumin/Globulin [Mass ratio] 0.7 {ratio} Low 0.9-2.4 [facility] Comment on above: Order Comment: Order Date: 09/03/24 Order Info: 2857-1 - PSA DR RACIEL FREDERICK PSA DR MAX FREDERICK Performed By: #### L 500.4100, L400.2011, L500.4050, L100.0100, L503.6550, L505.5000, L506.1000, L501.5101, L503.6150, L502.0500, L101.9900, L501.9520, L503.0105, L501.5200, L3300.8000 #### [facility] [address] [place], [address] ALK P 86 U/L Normal 45-117 [facility] Comment on above: Order Comment: Order Date: 09/03/24 Order Info: 2857-1 - PSA DR RACIEL FREDERICK PSA DR MAX FREDERICK Performed By: #### L 500.4100, L400.2010, L500.4050, L100.0100, L503.6550, L505.5000, L506.1000, L501.5101, L503.6150, L502.0500, L101.9900, L501.9520, L503.0105, L501.5200, L3300.8000 #### [facility] [address] [place], [address] ALT [Catalytic activity/Vol] 135 U/L High 16-61 [facility] Comment on above: Order Comment: Order Date: 09/03/24 Order Info: 2857-1 - PSA DR RACIEL FREDERICK PSA DR MAX FREDERICK Performed By: #### L 500.4100, L400.2010, L500.4050, L100.0100, L503.6550, L505.5000, L506.1000, L501.5101, L503.6150, L502.0500, L101.9900, L501.9520, L503.0105, L501.5200, L3300.8000 #### [facility] [address] [place], [place], [phone] (056) AST [Catalytic activity/Vol] 179 U/L High 15-37 [facility] Comment on above: Order Comment: Order Date: 09/03/24 Order Info: 2857-1 - PSA DR RACIEL FREDERICK PSA DR MAX FREDERICK Performed By: #### L 500.4100, L400.2010, L500.4050, L100.0100, L503.6550, L505.5000, L506.1000, L501.5101, L503.6150, L502.0500, L101.9900, L501.9520, L503.0105, L501.5200, L3300.8000 #### [facility] [address] [place], [address] Bilirubin [Mass/Vol] 0.60 mg/dL Normal 0.20-1.00 [facility] Comment on above: Order Comment: Order Date: 09/03/24 Order Info: 2857-1 - PSA DR RACIEL FREDERICK PSA DR MAX FREDERICK Result Comment: For patients on eltrombopag therapy, use of Dimension [place] TBIL is not recommended. Performed By: #### L 500.4100, L400.2010, L500.4050, L100.0100, L503.6550, L505.5000, L506.1000, L501.5101, L503.6150, L502.0500, L101.9900, L501.9520, L503.0105, L501.5200, L3300.8000 #### [facility] [address] [place], [place], [phone] BUN/CRE 11.4 RATIO Normal 10-20 [facility] Comment on above: Order Comment: Order Date: 09/03/24 Order Info: 2857 - PSA DR RACIEL FREDERICK PSA DR MAX FREDERICK Performed By: #### L 500.4100, L400.2010, L500.4050, L100.0100, L503.6550, L505.5000, L506.1000, L501.5101, L503.6150, L502.0500, L101.9900, L501.9520, L503.0105, L501.5200, L3300.8000 #### [facility] [address] [place], [address] CA,Total 9.4 mg/dL Normal 8.5-10.1 [facility] Comment on above: Order Comment: Order Date: 09/03/24 Order Info: 2857 - PSA DR RACIEL FREDERICK PSA DR MAX FREDERICK Performed By: #### L 500.4100, L400.2010, L500.4050, L100.0100, L503.6550, L505.5000, L506.1000, L501.5101, L503.6150, L502.0500, L101.9900, L501.9520, L503.0105, L501.5200, L3300.8000 #### [facility] [address] [place], [place], [phone] Chloride [Moles/Vol] 92 mmol/L Low 98-107 [facility] Comment on above: Order Comment: Order Date: 09/03/24 Order Info: 2857 - PSA DR RACIEL FREDERICK PSA DR MAX FREDERICK Performed By: #### L 500.4100, L400.2010, L500.4050, L100.0100, L503.6550, L505.5000, L506.1000, L501.5101, L503.6150, L502.0500, L101.9900, L501.9520, L503.0105, L501.5200, L3300.8000 #### [facility] [address] [place], [address] CO2 [Moles/Vol] 24.0 mmol/L Normal 21.0-32.0 [facility] Comment on above: Order Comment: Order Date: 09/03/24 Order Info: 2857-1 - PSA DR RACIEL FREDERICK PSA DR MAX FREDERICK Performed By: #### L 500.4100, L400.2010, L500.4050, L100.0100, L503.6550, L505.5000, L506.1000, L501.5101, L503.6150, L502.0500, L101.9900, L501.9520, L503.0105, L501.5200, L3300.8000 #### [facility] [address] [place], [address] Creatinine [Mass/Vol] 0.88 mg/dL Normal 0.70-1.30 [facility] Comment on above: Order Comment: Order Date: 09/03/24 Order Info: 2857-1 - PSA DR RACIEL FREDERICK PSA DR MAX FREDERICK Result Comment: The validity of the calculated GFR GFRAA in patients over 70 years has not been determined. Clinical correlation is essential. Performed By: #### L 500.4100, L400.2010, L500.4050, L100.0100, L503.6550, L505.5000, L506.1000, L501.5101, L503.6150, L502.0500, L101.9900, L501.9520, L503.0105, L501.5200, L3300.8000 #### [facility] [address] [place], [address] EST GFR - AA 119 mL/min Normal >60 [facility] Comment on above: Order Comment: Order Date: 09/03/24 Order Info: 2857-1 - PSA DR RACIEL FREDERICK PSA DR MAX FREDERICK Result Comment: Afri can Gambian GFR Calc Performed By: #### L 500.4100, L400.2010, L500.4050, L100.0100, L503.6550, L505.5000, L506.1000, L501.5101, L503.6150, L502.0500, L101.9900, L501.9520, L503.0105, L501.5200, L3300.8000 #### [facility] [address] [place], [place], [id number] GAP 11 Normal 5-15 [facility] Comment on above: Order Comment: Order Date: 09/03/24 Order Info: 2857- - PSA DR RACIEL FREDERICK PSA DR MAX FREDERICK Performed By: #### L 500.4100, L400.2010, L500.4050, L100.0100, L503.6550, L505.5000, L506.1000, L501.5101, L503.6150, L502.0500, L101.9900, L501.9520, L503.0105, L501.5200, L3300.8000 #### [facility] [address] [place], [place], [id number] GFR/1.73 sq M.predicted among non-blacks MDRD (S/P/Bld) [Vol rate/Area] 99 mL/min/{1.73_m2} Normal >60 [facility] Comment on above: Order Comment: Order Date: 09/03/24 Order Info: 2857- - PSA DR RACIEL FREDERICK PSA DR MAX FREDERICK Result Comment: Non- GFR Calc Performed By: #### L 500.4100, L400.2010, L500.4050, L100.0100, L503.6550, L505.5000, L506.1000, L501.5101, L503.6150, L502.0500, L101.9900, L501.9520, L503.0105, L501.5200, L3300.8000 #### [facility] [address] [place], [place], [id number] Globulin (S) [Mass/Vol] 5.1 g/dL High 2.2-4.2 [facility] Comment on above: Order Comment: Order Date: 09/03/24 Order Info: 2857-1 - PSA DR RACIEL FREDERICK PSA DR MAX FREDERICK Performed By: #### L 500.4100, L400.2010, L500.4050, L100.0100, L503.6550, L505.5000, L506.1000, L501.5101, L503.6150, L502.0500, L101.9900, L501.9520, L503.0105, L501.5200, L3300.8000 #### [facility] [address] [place], [address] Glucose [Mass/Vol] 81 mg/dL Normal 74-106 [facility] Comment on above: Order Comment: Order Date: 09/03/24 Order Info: 2857- - PSA DR RACIEL FREDERICK PSA DR MAX FREDERICK Performed By: #### L 500.4100, L400.2010, L500.4050, L100.0100, L503.6550, L505.5000, L506.1000, L501.5101, L503.6150, L502.0500, L101.9900, L501.9520, L503.0105, L501.5200, L3300.8000 #### [facility] [address] [place], [place], [id number] Potassium [Moles/Vol] 5.0 mmol/L Normal 3.5-5.1 [facility] Comment on above: Order Comment: Order Date: 09/03/24 Order Info: 2857-1 - PSA DR RACIEL FREDERICK PSA DR MAX FREDERICK Performed By: #### L 500.4100, L400.2010, L500.4050, L100.0100, L503.6550, L505.5000, L506.1000, L501.5101, L503.6150, L502.0500, L101.9900, L501.9520, L503.0105, L501.5200, L3300.8000 #### [facility] [address] [place], [address] Sodium [Moles/Vol] 127 mmol/L Low 136-145 [facility] Comment on above: Order Comment: Order Date: 09/03/24 Order Info: 2857-1 - PSA DR RACIEL FREDERICK PSA DR MAX FREDERICK Performed By: #### L 500.4100, L400.2010, L500.4050, L100.0100, L503.6550, L505.5000, L506.1000, L501.5101, L503.6150, L502.0500, L101.9900, L501.9520, L503.0105, L501.5200, L3300.8000 #### [facility] [address] [place], [address] T PROT 8.6 g/dL High 6.4-8.2 [facility] Comment on above: Order Comment: Order Date: 09/03/24 Order Info: 2857- - PSA DR RACIEL FREDERICK PSA DR MAX FREDERICK Performed By: #### L 500.4100, L400.2010, L500.4050, L100.0100, L503.6550, L505.5000, L506.1000, L501.5101, L503.6150, L502.0500, L101.9900, L501.9520, L503.0105, L501.5200, L3300.8000 #### [facility] [address] [place], [address] Urea nitrogen [Mass/Vol] 10 mg/dL Normal 7-18 [facility] Comment on above: Order Comment: Order Date: 09/03/24 Order Info: [id number] - PSA DR RACIEL FREDERICK PSA DR MAX FREDERICK Performed By: #### L 500.4100, L400.2010, L500.4050, L100.0100, L503.6550, L505.5000, L506.1000, L501.5101, L503.6150, L502.0500, L101.9900, L501.9520, L503.0105, L501.5200, L3300.8000 #### [facility] [address] [place], [place], [id number] Eosinophil percentageOrdered By: Liudmila Schrader on 10-06-2024 Eosinophils/100 WBC (Bld) 0.6 % 0-5 [facility] Erythrocyte Sed Rateon 10-06 SED RATE 15 mm/hr Normal 0-20 [facility] Comment on above: Performed By: #### L 500.4100, L400.2011, L500.4050, L100.0100, L503.6550, L505.5000, L506.1000, L501.5101, L503.6150, L502.0500, L101.9900, L501.9520, L503.0105, L501.5200, L3300.8000 #### [facility] [address] [facility] [place], [place], [id number] Erythrocyte distribution wid th ratioOrdered By: Liudmila Schrader on 10-06-2024 Erythrocyte distribution width (RBC) [Ratio] 11.5 % Low 11.6-14.6 [facility] Erythrocyte distribution wid th standard deviationOrdered By: Liudmila Schrader on 10-06-2024 Erythrocyte distribution width (RBC) [Entitic vol] 38.8 fL 35.1-43.9 [facility] Erythrocyte distribution width (RBC) [Ratio] 38.8 fl 35.1-43.9 [facility] Erythrocyte sedimentation ra teOrdered By: Liudmila Schrader on 10-06-2024 ESR (Bld) [Velocity] 15 mm/h 0-20 [facility] Estimated glomerular filtrat ion rate (GFR) AmericanOrdered By: Liudmila Schrader on 10-06-2024 Estimated GFR (MDRD) Amer 119 mL/min >60 [facility] Comment on above: GFR Calc Ferritinon 10-06-2024 Ferritin [Mass/Vol] 856 ng/mL High 26-388 [facility] Comment on above: Order Comment: Order Date: 09/03/24Order Info: [id number] - PSA DR SCHRADER ORDERD PSADR SANTANA ORDERD Performed By: #### L 500.4100, L400.2011, L500.4050, L100.0100, L503.6550, L505.5000, L506.1000, L501.5101, L503.6150, L502.0500, L101.9900, L501.9520, L503.0105, L501.5200, L3300.8000 ####[facility] [address] [place], [place], [id number] Ferritin measurementOrdered By: Liudmila Schrader on 10-06-2024 Ferritin [Mass/Vol] 856 ng/mL High 26-388 [facility] Gamma glutamyl transferase ( GGT) measurementOrdered By: Liudmila Schrader on 10-06-2024 Amylase [Catalytic activity/Vol] 424 U/L High 0-65 [facility] Comment on above: Performed at: - [address] [id number] Director: Felicia Garcia MD, Phone: [phone] at: - [facility] [address] [id number] Director: Pablito Rubalcava PhD, Phone: [phone] Glomerular filtration rate ( GFR) estimationOrdered By: Liudmila Schrader on 10-06-2024 Estimated GFR (MDRD) Non-Af Amer 99 mL/min >60 [facility] Comment on above: Non- GFR Calc GFR/1.73 sq M.predicted among non-blacks MDRD (S/P/Bld) [Vol rate/Area] 99 mL/min/{1.73_m2} >60 [facility] Comment on above: Non- GFR Calc Glucose measurementOrdered B y: Liudmila Schrader on 10-06-2024 Glucose [Mass/Vol] 81 mg/dL 74-106 [facility] Hematocrit Auto (Bld) [Volum e fraction]Ordered By: Liudmila Schrader on 10-06-2024 Hematocrit (Bld) [Volume fraction] 32.4 % Low 40-54 [facility] Hemoglobin measurementOrdere d By: Liudmila Schrader on 10-06-2024 Hemoglobin (Bld) [Mass/Vol] 11.5 g/dL Low 13.0-16.5 [facility] High density lipoprotein (HD L) measurementOrdered By: Liudmila Schrader on 10-06-2024 Cholesterol in HDL [Mass/Vol] 93 mg/dL >40 [facility] Comment on above: The drugs N-Acetylcy steine and Metamizole may falsely depress this assay. Reference Range HDL <40 mg/dL Low HDL Cholesterol HDL >or= 60 mg/dL High HDL Cholesterol Immature granulocytes/100 WB C Auto (Bld)Ordered By: Liudmila Schrader on 10-06-2024 Immature granulocytes/100 WBC (Bld) 0.400 % 0.0-0.9 [facility] Comment on above: IG% - Immature Granu locytes (promyelocytes, myelocytes and metamyelocytes) > 1% indicates that a LEFT SHIFT is Present. Iron (Unsp spec) [Mass/Mass] Ordered By: Liudmila Schrader on 10-06-2024 Iron [Mass/Vol] 107 ug/dL 65-175 [facility] Iron measurement (mass/mass) Ordered By: Liudmila Schrader on 10-06-2024 Iron (Unsp spec) [Mass/Mass] 107 ug/dL 65-175 [facility] - Chemistry and C hemistry - challengeOrdered By: Liudmila Schrader on 10-06-2024 AST [Catalytic activity/Vol] 179 U/L High 15-37 [facility] Lipid Profileon 10-06-2024 Cholesterol [Mass/Vol] 210 mg/dL High 200 [facility] Comment on above: Order Comment: Order Date: 09/03/24Order Info: [id number] - PSA DR SCHRADER ORDERD FIDELIA SANTANA ORDERD Result Comment: <200 mg/dL Desirable 200-240 mg/dL Borderline >240 mg/dL High Risk Performed By: #### L 500.4100, L400.2011, L500.4050, L100.0100, L503.6550, L505.5000, L506.1000, L501.5101, L503.6150, L502.0500, L101.9900, L501.9520, L503.0105, L501.5200, L3300.8000 ####[facility] [address] [place], [address] Cholesterol in HDL [Mass/Vol] 93 mg/dL Normal [facility] Comment on above: Order Comment: Order Date: 09/03/24Order Info: [id number] - PSA DR RACIEL FREDERICK Result Comment: The drugs N-Acetylcysteine and Metamizole may falsely depress this assay. Reference Range HDL <40 mg/dL Low HDL Cholesterol HDL >or= 60 mg/dL High HDL Cholesterol Performed By: #### L 500.4100, L400.2010, L500.4050, L100.0100, L503.6550, L505.5000, L506.1000, L501.5101, L503.6150, L502.0500, L101.9900, L501.9520, L503.0105, L501.5200, L3300.8000 ####[facility] [address], [address] Cholesterol in LDL [Mass/Vol] 104 mg/dL Normal 0-130 [facility] Comment on above: Order Comment: Order Date: 09/03/24Order Info: [id number] - PSA DR RACIEL FREDERICK Performed By: #### L 500.4100, L400.2010, L500.4050, L100.0100, L503.6550, L505.5000, L506.1000, L501.5101, L503.6150, L502.0500, L101.9900, L501.9520, L503.0105, L501.5200, L3300.8000 ####[facility] [address], [address] Cholesterol in VLDL [Mass/Vol] 13 mg/dL Normal 5-40 [facility] Comment on above: Order Comment: Order Date: 09/03/24Order Info: [id number] - PSA DR SCHRADER ORDERD FIDELIA SANTANA ORDERD Performed By: #### L 500.4100, L400.2011, L500.4050, L100.0100, L503.6550, L505.5000, L506.1000, L501.5101, L503.6150, L502.0500, L101.9900, L501.9520, L503.0105, L501.5200, L3300.8000 ####[facility] [address] [facility] [place], [place], [id number] Triglyceride [Mass/Vol] 66 mg/dL Normal [facility] Comment on above: Order Comment: Order Date: 09/03/24Order Info: [id number] - PSA DR SCHRADER ORDERD FIDELIA SANTANA ORDERD Result Comment: The drugs N-Acetylcysteine and Metamizole may falsely depress this assay. Serum Triglycerides Reference Interval Normal <150 mg/dL Borderline high 150 - 199 mg/dL High 200 - 499 mg/dL Very High > or = 500 mg/dL Performed By: #### L 500.4100, L400.2011, L500.4050, L100.0100, L503.6550, L505.5000, L506.1000, L501.5101, L503.6150, L502.0500, L101.9900, L501.9520, L503.0105, L501.5200, L3300.8000 ####[facility] [address] [facility] [place], [place], [id number] Low density lipoprotein (LDL ) cholesterol measurementOrdered By: Liudmila Schrader on 10-06-2024 Cholesterol in LDL [Mass/Vol] 104 mg/dL 0-130 [facility] Lymphocytes Auto (Unsp spec) [#/Vol]Ordered By: Liudmila Schrader on 10-06-2024 Lymphocytes (Bld) [#/Vol] 0.80 10*3/uL Low 0.83-4.5 1 [facility] Lymphocytes/100 WBC Auto (Un sp spec)Ordered By: Liudmila Schrader on 10-06-2024 Lymphocytes/100 WBC (Bld) 16.9 % Low 19-41 [facility] MCV (mean corpuscular volume ) determinationOrdered By: Liudmila Schrader on 10-06-2024 MCV (RBC) [Entitic vol] 93.1 fL 80-94 [facility] Magnesium measurementOrdered By: Liudmila Schrader on 10-06-2024 Magnesium [Mass/Vol] 2.9 mg/dL High 1.6-2.6 [facility] Mean corpuscular hemoglobin (MCH) determinationOrdered By: Liudmila Schrader on 10-06-2024 MCH (RBC) [Entitic mass] 33.0 pg High 27.0-32.0 [facility] Mean corpuscular hemoglobin concentration (MCHC) determinationOrdered By: Liudmila Schrader on 10-06-2024 MCHC (RBC) [Mass/Vol] 35.5 g/dL 32-36 [facility] Mean platelet volume determi nationOrdered By: Liudmila Schrader on 10-06-2024 Platelet mean volume (Bld) [Entitic vol] 8.2 fL 6.2-12.0 [facility] Methadone, urineOrdered By: Liudmila Schrader on 10-06-2024 Urine Methadone Screen Negative < 300 ng/mL [facility] Microalbumin,Random Urineon 10-06-2024 MICROALBUMIN,UR 152.0 mg/L Normal NO RANGE EST. [facility] Comment on above: Performed By: #### L 500.4100, L400.2011, L500.4050, L100.0100, L503.6550, L505.5000, L506.1000, L501.5101, L503.6150, L502.0500, L101.9900, L501.9520, L503.0105, L501.5200, L3300.8000 #### [facility] [address] [place], [address] Monocyte percentageOrdered B y: Liudmila Schrader on 10-06-2024 Monocytes/100 WBC (Bld) 13.1 % High 0-10 [facility] Neutrophil percentageOrdered By: Liudmila Schrader on 10-06-2024 Neutrophils/100 WBC (Bld) 67.9 % 47-70 [facility] No Panel InformationOrdered By: Liudmila Schrader on 10-06-2024 Urine Drug Screen Comment [facility] Comment on above: CONFIRMATORY TESTING FOR ALL POSITIVE URINE DRUG SCREENRESULTS WILL ONLY BE SENT OUT UPON PHYSICIAN ORDER. VISTA Urine Drug Screen methods provide only preliminaryanalytical test results. A more specific alternate chemicalmethod must be used in order to obtain a confirmedanalytical result. Gas chromatography/mass spectrometery(GC/MS) is the preferred confirmatory method. Clinicalconsideration and professional judgement should be appliedto any drug of abuse test result, particularly whenpreliminary positive results are used. URINE TCA TESTING MUST BE ORDERED SEPARATELY. USE TESTMNEMONIC: [facility]CA Nucleated red blood cell per centageOrdered By: Liudmila Schrader on 10-06-2024 Nucleated RBC/100 WBC (Bld) [Ratio] 0 % 0-5 [facility] PSA,Total - Annual Screenon 10-06-2024 PSA,TOT SCREEN 1.28 ng/mL Normal 0.00-4.00 [facility] Comment on above: Order Comment: Order Date: 09/03/24Order Info: [id number] - PSA DR SCHRADER ORDERD PSADR SANTANA ORDERD Result Comment: This test was performed using the TPSA assay method for the [employer] chemistry system. Values obtained with different assay methods cannot be used interchangably. When changing PSA assays in the course of monitoring a patient, additional sequential testing should be carried out to confirm baseline values. Performed By: #### L 501.9910 ####[facility] [address] [place], [place], [phone] Platelet countOrdered By: Aristides Schrader on 10-06-2024 Platelets (Bld) [#/Vol] 192 10*3/uL 150-450 [facility] Potassium measurementOrdered By: Liudmila Schrader on 10-06-2024 Potassium [Moles/Vol] 5.0 mmol/L 3.5-5.1 [facility] Quantitative urine opiates m easurementOrdered By: Liudmila Schrader on 10-06-2024 Opiates Ql (U) Negative < 300 ng/mL [facility] RBC Auto (Bld) [#/Vol]Ordere d By: Liudmila Schrader on 10-06-2024 RBC (Bld) [#/Vol] 3.48 10*6/uL Low 4.6-6.2 [facility] Random urine microalbumin me asurementOrdered By: Liudmila Schrader on 10-06-2024 Urine Random Microalbumin 152.0 mg/L NO RANGE EST. [facility] Screening prostate specific antigen (PSA) measurementOrdered By: Liudmila Schrader on 10-06-2024 Prostate Specific Antigen Screen 1.28 ng/mL 0.00-4.00 [facility] Comment on above: This test was perfor med using the TPSA assay method for theLibriLoop chemistry system. Values obtained with differentassay methods cannot be used interchangably.When changing PSA assays in the course of monitoring apatient, additional sequential testing should be carriedout to confirm baseline values. Serum anion gap measurementO rdered By: Liudmila Schrader on 10-06-2024 Anion gap [Moles/Vol] 11 mmol/L 5-15 [facility] Serum globulin measurementOr dered By: Liudmila Schrader on 10-06-2024 Globulin (S) [Mass/Vol] 5.1 g/dL High 2.2-4.2 [facility] Serum or plasma alanine bruno otransferase (ALT) measurementOrdered By: Liudmila Schrader on 10-06-2024 ALT [Catalytic activity/Vol] 135 U/L High 16-61 [facility] Serum or plasma albumin carlos urement (mass/volume)Ordered By: Liudmila Schrader on 10-06-2024 Albumin [Mass/Vol] 3.5 g/dL 3.2-5.0 [facility] Serum or plasma alkaline ann sphatase measurementOrdered By: [place] Raciel 10-06-2024 ALP [Catalytic activity/Vol] 86 U/L 45-117 [facility] Serum or plasma calcium carlos urement (mass/volume)Ordered By: Liudmila Schrader on 10-06-2024 Calcium [Mass/Vol] 9.4 mg/dL 8.5-10.1 [facility] Serum or plasma cholesterol measurement (mass/volume)Ordered By: Liudmila Schrader on 10-06-2024 Cholesterol [Mass/Vol] 210 mg/dL High <200 [facility] Comment on above: <200 mg/dL Desirable 200-240 mg/dL Borderline >240 mg/dL High Risk Serum or plasma creatinine m easurement (mass/volume)Ordered By: Liudmila Schrader on 10-06-2024 Creatinine [Mass/Vol] 0.88 mg/dL 0.70-1.30 [facility] Comment on above: The validity of the calculated GFR & GFRAA in patients over 70 years has not been determined. Clinical correlation is essential. Serum or plasma thiamine keron surement (mass/volume)Ordered By: Liudmila Schrader on 10-06-2024 Thiamine [Mass/Vol] 68.5 nmol/L 66.5-200.0 [facility] Serum or plasma thyroid stim ulating hormone (TSH) measurement (units/volume)Ordered By: Liudmila Schrader on 10-06-2024 TSH Qn 1.330 uIU/mL 0.358-3.74 0 [facility] Serum or plasma urea nitroge n measurement (mass/volume)Ordered By: Liudmila Schrader on 10-06-2024 Urea nitrogen [Mass/Vol] 10 mg/dL 7-18 [facility] Sodium levelOrdered By: Liudmila Schrader on 10-06-2024 Sodium [Moles/Vol] 127 mmol/L Low 136-145 [facility] TSH QnOrdered By: Liudmila rueda on 10-06-2024 Thyroid Stimulating Hormone (TSH) 1.330 uIU/mL 0.358-3.74 0 [facility] Thiamine [Mass/Vol]Ordered B y: Liudmila Schrader on 10-06-2024 Whole Blood Vitamin B1 Level 68.5 nmol/L 66.5-200.0 [facility] Thyroid Stim Hormone (TSH)on 10-06-2024 TSH 1.330 uIU/mL Normal 0.358-3.74 0 [facility] Comment on above: Order Comment: Order Date: 09/03/24Order Info: [id number] - PSA DR SCHRADER ORDERD FIDELIA SANTANA ORDERD Performed By: #### L 500.4100, L400.2011, L500.4050, L100.0100, L503.6550, L505.5000, L506.1000, L501.5101, L503.6150, L502.0500, L101.9900, L501.9520, L503.0105, L501.5200, L3300.8000 ####[facility] [address] [place], [place], [id number] Total proteinOrdered By: Sophie Schrader on 10-06-2024 Protein [Mass/Vol] 8.6 g/dL High 6.4-8.2 [facility] Triglycerides measurementOrd ered By: Liudmila Schrader on 10-06-2024 Triglyceride [Mass/Vol] 66 mg/dL <199 [facility] Comment on above: The drugs N-Acetylcy steine and Metamizole may falsely depress this assay.Serum Triglycerides Reference Interval Normal <150 mg/dL Borderline high 150 - 199 mg/dL High 200 - 499 mg/dL Very High > or = 500 mg/dL Urine Drug Screen (VISTA)on 10-06-2024 AMPHETAMINES Negative Normal <1000 ng/mL [facility] Comment on above: Order Comment: UNK Performed By: #### L 500.4100, L400.2010, L500.4050, L100.0100, L503.6550, L505.5000, L506.1000, L501.5101, L503.6150, L502.0500, L101.9900, L501.9520, L503.0105, L501.5200, L3300.8000 #### [facility] [address] [place], [place], [id number] BARBITIURATES Negative Normal < 200 ng/mL [facility] Comment on above: Order Comment: UNK Performed By: #### L 500.4100, L400.2010, L500.4050, L100.0100, L503.6550, L505.5000, L506.1000, L501.5101, L503.6150, L502.0500, L101.9900, L501.9520, L503.0105, L501.5200, L3300.8000 #### [facility] [address] [place], [place], [address] BENZODIAZIPINE Negative Normal < 200 ng/mL [facility] Comment on above: Order Comment: UNK Performed By: #### L 500.4100, L400.2010, L500.4050, L100.0100, L503.6550, L505.5000, L506.1000, L501.5101, L503.6150, L502.0500, L101.9900, L501.9520, L503.0105, L501.5200, L3300.8000 #### [facility] [address] [place], [address] COCAINE Negative Normal < 300 ng/mL [facility] Comment on above: Order Comment: UNK Performed By: #### L 500.4100, L4.2010, L500.4050, L100.0100, L503.6550, L505.5000, L506.1000, L501.5101, L503.6150, L502.0500, L101.9900, L501.9520, L503.0105, L501.5200, L3300.8000 #### [facility] [address] [place], [address] ECSTACY Negative Normal < 500 ng/mL [facility] Comment on above: Order Comment: UNK Performed By: #### L 500.4100, L4.2010, L500.4050, L100.0100, L503.6550, L505.5000, L506.1000, L501.5101, L503.6150, L502.0500, L101.9900, L501.9520, L503.0105, L501.5200, L3300.8000 #### [facility] [address] [place], [place], [id number] ([phone] METHADONE Negative Normal < 300 ng/mL [facility] Comment on above: Order Comment: UNK Performed By: #### L 500.4100, L4, L500.4050, L100.0100, L503.6550, L505.5000, L506.1000, L501.5101, L503.6150, L502.0500, L101.9900, L501.9520, L503.0105, L501.5200, L3300.8000 #### [facility] [address] [place], [place], [address] OPIATES Negative Normal < 300 ng/mL [facility] Comment on above: Order Comment: UNK Performed By: #### L 500.4100, L400.2010, L500.4050, L100.0100, L503.6550, L505.5000, L506.1000, L501.5101, L503.6150, L502.0500, L101.9900, L501.9520, L503.0105, L501.5200, L3300.8000 #### [facility] [place], [address] PCP Negative Normal < 25 ng/mL [facility] Comment on above: Order Comment: UNK Performed By: #### L 500.4100, L4.2010, L500.4050, L100.0100, L503.6550, L505.5000, L506.1000, L501.5101, L503.6150, L502.0500, L101.9900, L501.9520, L503.0105, L501.5200, L3300.8000 #### [facility] [address] [place], [place], [id number] THC Negative Normal < 50 ng/mL [facility] Comment on above: Order Comment: UNK Performed By: #### L 500.4100, L4.2010, L500.4050, L100.0100, L503.6550, L505.5000, L506.1000, L501.5101, L503.6150, L502.0500, L101.9900, L501.9520, L503.0105, L501.5200, L3300.8000 #### [facility] [address] [place], [place], [address] VISTA UDS PH 5 Normal [facility] Comment on above: Order Comment: UNK Performed By: #### L 500.4100, L400.2011, L500.4050, L100.0100, L503.6550, L505.5000, L506.1000, L501.5101, L503.6150, L502.0500, L101.9900, L501.9520, L503.0105, L501.5200, L3300.8000 #### [facility] [address] [place], [place], [id number] Urine amphetamine measuremen tOrdered By: Liudmila Schrader on 10-06-2024 Amphetamines Ql (U) Negative <1000 ng/mL [facility] Urine barbiturates measureme ntOrdered By: Liudmila Schrader on 10-06-2024 Urine Barbiturates Screen Negative < 200 ng/mL [facility] Urine benzodiazepine levelOr dered By: Liudmila Schrader on 10-06-2024 Benzodiazepines Ql (U) Negative < 200 ng/mL [facility] Urine cocaine levelOrdered B y: Liudmila Schrader on 10-06-2024 Cocaine Ql (U) Negative < 300 ng/mL [facility] Urine datzn-3-etkaccrnmzmeqn abinol (THC) measurementOrdered By: Liudmila Schrader on 10-06-2024 Cannabinoids Screen Ql (U) Negative < 50 ng/mL [facility] Urine methylenedioxymethamph etamine (MDMA) measurementOrdered By: Liudmila Schrader on 10-06-2024 MDMA (Ecstasy) Screen Negative < 500 ng/mL [facility] Urine phencyclidine (PCP) de tectionOrdered By: Liudmila Schrader on 10-06-2024 Phencyclidine Ql (U) Negative < 25 ng/mL [facility] Very low density lipoprotein (VLDL) cholesterol measurementOrdered By: Liudmila Schrader on 10-06-2024 Very low density lipoprotein (VLDL) cholesterol measurement 13 mg/dL 5-40 [facility] VLDL Cholesterol 13 mg/dL -40 [facility] Vitamin B12 measurementOrder ed By: Liudmila Schrader on 10-06-2024 Cobalamin (Vitamin B12) [Mass/Vol] 207 pg/mL Low 211-911 [facility] Comment on above: Performed By: #### L 500.4100, L400.2010, L500.4050, L100.0100, L503.6550, L505.5000, L506.1000, L501.5101, L503.6150, L502.0500, L101.9900, L501.9520, L503.0105, L501.5200, L3300.8000 #### [facility] [address] [place], [address] Vitamin D,25 Hydroxyon 10-06 Vitamin D 25-OH 8.0 ng/mL Normal [facility] Comment on above: Result Comment: Roxanna min D 25(OH) Status Range Deficiency <20 ng/mL (50nmol/L) Insufficiency 20 - 30 ng/mL (50 - 75 nmol/L) Sufficiency 30 - 100 ng/mL (75 - 250 nmol/L) Toxicity >100 ng/mL (>250 nmol/L) Performed By: #### L 500.4100, L400.2010, L500.4050, L100.0100, L503.6550, L505.5000, L506.1000, L501.5101, L503.6150, L502.0500, L101.9900, L501.9520, L503.0105, L501.5200, L3300.8000 #### [facility] [address] [place], [address] White blood cell (WBC) count Ordered By: Liudmila Schrader on 10-06-2024 WBC (Bld) [#/Vol] 4.7 10*3/uL 4.4-11.0 [facility] Vital Signs Date Time Vital Sign Value Performing Clinician Faci lity 01-22-2025 13:34-0400 Body height 190.[address] Michael Santana MD Work Phone: [facility] 01-22-2025 13:34-0400 Body mass index (BMI) [Ratio] 27.6 kg/m2 Dr. Michael Santana MD Work Phone: [facility] 01-22-2025 13:34-0400 Body temperature 97.7 [degF] Dr. Michael Santana MD Work Phone: 5(920)488-734838 [place] [address] 01-22-2025 13:34-0400 Body weight 100.[address] Michael Santana MD Work Phone: 4(450)133-560570 [place] [address] 01-22-2025 13:34-0400 Diastolic blood pressure 68 mm[Hg] Dr. Michael Santana MD Work Phone: 6(946)388-176970 [place] [address] 01-22-2025 13:34-0400 Heart rate 111 /min Dr. Michael Santana MD Work Phone: 5(532)[phone] [place] [address] 01-22-2025 13:34-0400 Respiratory rate 15 /min Dr. Michael Santana MD Work Phone: 5([phone])[phone] [place] [address] 01-22-2025 13:34-0400 SaO2% (BldA) [Mass fraction] 97 % Dr. Michael Santana MD Work Phone: 3([phone])857-977038 [place] [address] 01-22-2025 13:34-0400 Systolic blood pressure 104 mm[Hg] Dr. Michael Santana MD Work Phone: 0(386)[phone] [place] [address] 11-15-2024 10:56-0400 Body height 190.[address] Michael Santana MD Work Phone: 1(883)307-734870 [place] [address] 11-15-2024 10:56-0400 Body mass index (BMI) [Ratio] 26.7 kg/m2 Dr. Michael Santana MD Work Phone: 3(170)118-439438 [place] [address] 11-15-2024 10:56-0400 Body temperature 98.2 [degF] Dr. Michael Santana MD Work Phone: 0(654)810-885354 [address] 11-15-2024 10:56-0400 Body weight 97.[address] Michael Santana MD Work Phone: [facility] 11-15-2024 10:56-0400 Diastolic blood pressure 74 mm[Hg] Dr. Michael Santana MD Work Phone: [facility] 11-15-2024 10:56-0400 Heart rate 110 /min Dr. Michael Santana MD Work Phone: [facility] 11-15-2024 10:56-0400 Respiratory rate 16 /min Dr. Michael Santana MD Work Phone: [facility] 11-15-2024 10:56-0400 SaO2% (BldA) [Mass fraction] 98 % Dr. Michael Santana MD Work Phone: [facility] 11-15-2024 10:56-0400 Systolic blood pressure 122 mm[Hg] Dr. Michael Santana MD Work Phone: [facility] 10-26-2024 08:09-0400 Body height 190.[address] Michael Santana MD Work Phone: [facility] 10-10-2024 10:35-0500 Body temperature 99.1 [degF] Dr. Michael Santana MD Work Phone: [facility] 10-10-2024 10:35-0500 Diastolic blood pressure 90 mm[Hg] Dr. Michael Santana MD Work Phone: [facility] 10-10-2024 10:35-0500 Heart rate 81 /min Dr. Michael Santana MD Work Phone: [facility] 10-10-2024 10:35-0500 Respiratory rate 18 /min Dr. Michael Santana MD Work Phone: [facility] 10-10-2024 10:35-0500 SaO2% (BldA) [Mass fraction] 95 % Dr. Michael Santana MD Work Phone: [facility] 10-10-2024 10:35-0500 Systolic blood pressure 128 mm[Hg] Dr. Michael Santana MD Work Phone: [facility] 10-10-2024 08:30-0500 Body height 190.[address] Michael Santana MD Work Phone: [facility] 10-10-2024 08:30-0500 Body mass index (BMI) [Ratio] 26.2 kg/m2 Dr. Michael Santana MD Work Phone: [facility] 10-10-2024 08:30-0500 Body weight [address] Michael Santana MD Work Phone: [facility] 08-01-2024 10:49-0500 Body mass index (BMI) [Ratio] 25.6 kg/m2 Dr. Michael Santana MD Work Phone: [facility] 08-01-2024 10:49-0500 Body weight 92.[address] Michael Santana MD Work Phone: [facility] Encounters Encounter Date Encounter Type Care Provider Facility Start: 01-22-2025 End: 01-22-[address] Wisam Cosby MD -[facility] Work Phone: Start: 01-22-2025 End: 01-22-[address] Michael Santana MD Work Phone: [facility] Work Phone: Start: 12-20-2024 ambulatory Wisam Cosby Facilit y:[facility] Start: 12-20-[address] Wisam vasquez MD -Physical Therapy Work Phone: Start: 12-05-2024 ambulatory Melissa Lema Facility: [facility] Start: 12-05-2024 Non-patient / Non-visit Dr. Melissa Lema MD -[facility]- Start: 12-05-2024 End: 12-05-[address] Michael Santana MD Work Phone: [facility] Work Phone: Start: 12-05-2024 End: 12-05-[address] Wisam Cosby MD -Pulmonary Services/Neurology Work Phone: Start: 12-05-2024 End: 12-05-[facility] Start: 11-30-[address] Wisam vasquez MD -Physical Therapy Work Phone: Start: 11-15-2024 End: 11-15-[address] Wisam Cosby MD -[facility] Work Phone: Start: 11-15-2024 End: 11-15-2024 ambulatory [place] [facility]a Facility:[facility] Start: 11-01-2024 End: 11-01-[address] Michael Santana MD Work Phone: [facility] Work Phone: Start: 11-01-2024 End: 11-01-[address] Michael Santana MD -Ultrasound, [facility] Work Phone: Start: 11-01-2024 End: 11-01-2024 ambulatory Michael Santana Facility:[facility] Start: 10-26-2024 End: 10-26-[address] Shamar Fritz MD -[facility] Start: 10-26-2024 End: 10-26-2024 ambulatory Shamar Fritz Facility:[facility] Start: 10-23-2024 End: 10-23-2024 ambulatory [facility] Facility:[facility] Start: 10-16-2024 End: 10-16-[address] Michael Santana MD Work Phone: [facility] Work Phone: Start: 10-16-2024 End: 10-16-[address] Michael Santana MD -Laboratory, [facility] Start: 10-16-2024 End: 10-16-2024 ambulatory [facility] [place] Facility:[facility] Start: 10-10-2024 Non-patient / Non-visit Dr. Paddy Lanza MD -[facility] Start: 10-10-2024 End: 10-10-2024 Admission to same day surgery center Dr. Paddy Lanza MD -Endoscopy Work Phone: Start: 10-10-2024 End: 10-10-2024 ambulatory [facility] Facility:[facility] Start: 10-06-2024 End: 10-06-2024 Patient encounter procedure Liudmila Schrader PNEUDRAULIC SYSTEMS MECHANIC-C -Laboratory, [place] Work Phone: Start: 10-06-2024 End: 10-06-2024 ambulatory [facility] Facility:[facility] Start: 08-01-2024 Non-patient / Non-visit Dr. Michael Santana MD Work Phone: -[facility] Work Phone: Start: 08-01-2024 [facility] Facility:[facility] Procedures Date Procedure Procedure Detail Performing Clinician Start: 11-01-2024 Ultrasound elastogra phy of liver Dr. Michael Santana MD Work Phone: Start: 10-26-2024 X-ray of lumbar spin e, two or three views Dr. Michael Santana MD Work Phone: Start: 10-16-2024 Endomysial antibody IgA level Dr. Michael Santana MD Work Phone: Start: 10-16-2024 Hepatitis A virus an tibody, IgM type Dr. Michael Santana MD Work Phone: Comment on above: A negative anti-HAV IgM result suggests no recent orcurrent HAV infection. Start: 10-16-2024 Hepatitis B core ant ibody measurement, IgM type Dr. Michael Santana MD Work Phone: Start: 10-16-2024 Hepatitis C antibody measurement Dr. Michael Santana MD Work Phone: Start: 10-16-2024 Osmolality measureme nt, serum Dr. Michael Santana MD Work Phone: Start: 10-06-[address] Michael Santana MD Work Phone: Start: 10-06-2024 Measurement of 3,4-methylenedioxymethamphet amine in urine Dr. Michael Santana MD Work Phone: Start: 10-06-2024 Methadone measurement, urine Dr. Michael Santana MD Work Phone: Start: 10-06-[address] Michael Santana MD Work Phone: Start: 10-06-2024 Vitamin D, 25-hydrox y measurement Dr. Michael Santana MD Work Phone: Comment on above: Vitamin D 25(OH) Sta tus Range Deficiency <20 ng/mL (50nmol/L) Insufficiency 20 - 30 ng/mL (50 - 75 nmol/L) Sufficiency 30 - 100 ng/mL (75 - 250 nmol/L) Toxicity >100 ng/mL (>250 nmol/L) Start: 10-06-2024 Measurement of renal function Dr. Michael Santana MD Work Phone: Comment on above: GFR Calc Start: 10-06-2024 Prostate specific an tigen measurement Dr. Michael Santana MD Work Phone: Comment on above: This test was perfor med using the TPSA assay method for the[facility] chemistry system. Values obtained with differentassay methods cannot be used interchangably.When changing PSA assays in the course of monitoring apatient, additional sequential testing should be carriedout to confirm baseline values. Plan of Treatment Date Care Activity Detail Author Start: 11-15-2024 Patient referral [facility] Work Phone: Start: 10-10-2024 Colsc flx w/rmvl of tumor polyp lesion snare tq COLONOSCOPY W/LESION REMOVAL [facility] Start: 10-10-2024 Patient discharge [facility] Comprehensive metabo lic 2000 panel - Serum or Plasma [facility] Folic acid measureme nt, RBC [facility] Hemoglobin A1c/Hemoglobin.total in Blood [facility] Intrinsic factor blo cking Ab [Units/volume] in Serum [facility] Magnesium measurement [facility] MR Lumbar spine [facility] Patient referral [facility] Work Phone: [facility] Payers Date Payer Category Payer Self-pay 2024 Unknown [id number] 1975 Unknown [id number] [id number] Unknown [facility] [id number] Unknown [id number] 2.16.8 [id number] Unknown [id number] 2.16.8 [id number] Unknown [id number] 2.16.8 [id number] Unknown [id number] 2.16.8 [id number] Unknown [id number] 2.16.8 [id number] Unknown [id number] 2.16.8 [id number] Unknown [id number] 2.16.8 [id number] Unknown [id number] 2.16.8 [id number] Unknown [id number] 2.16.8 [id number] Unknown [id number] 2.16.8 [id number] Unknown [id number] 2.16.8 [id number] Unknown [id number] 2.16.8 [id number] Unknown [id number] 2.16.8 [id number] Social History Date Type Detail Facility Start: 10-10-2024 End: 10-26-2024 Tobacco smoking status NHIS Never smoked tobacco (finding) [facility] Start: 10-25-2024 End: 12-08-2024 Sex Male (finding) [facility] Start: 1975 Sex Assigned At Male [facility] Goals Date Patient Goal Desired Activity /State Mental Status Date Assessment Result Facility 10-10-2024 Cognitive function [facility] Work Phone: Procedure note 12-05-2024 Note Date & Type Note Facility 12-05-2024 Procedure note [facility] Radiology Diagnostic study note 11-01-2024 Note Date & Type Note Facility 11-01-2024 Radiology Diagnostic study note [facility] Imaging Services [address] [place] [address] ABD Limited w/ Elastography MR#: [id number] Acct: [id number] Name: RJ JOHNSON II Rep #: [id number] : 1975 M 48 From: Dario Miller MD PCP: Dr. Michael Santana MD Status: REG CLI Study:ABD Limited w/ Elastography Date of Exa m: 11/01/24 Exam# [id number] Ordering Dr: Elda Santana MD PROCEDURE: ABD LIMITED W/ ELASTOGRAPHY REASON FOR EXAM: NEW ELEVATED LFTS, ETOH. COMPARISON: None. TECHNIQUE: Right upper quadrant abdominal ultrasound. Charly ElastQ Imaging shear wave elastography for non-invasive assessment of liver tissue stiffness. Everwise EPIQ Elite. FINDINGS: LIVER: Size: Enlarged (hepatomegaly) Length: 18 cm Echotexture: Diffusely echogenic suggesting fatty infiltration Contour: Normal Lesions: None identified Elastography: EQI Med: 12.3 kPa EQI Med Alex: 2.0 m/s IQR/Med: 12 %* GALLBLADDER: Normal COMMON BILE DUCT: Normal it measures 4.6 mm.. PANCREAS: Normal Visualized portions of the right kidney are unremarkable. No right upper quadrant ascites. US/ABD Limited w/ Elastography IMPRESSION: MODERATE TO SEVERE HEPATIC FIBROSIS Mild hepatomegaly and fatty infiltration of the liver. Reference Values: SRU <1.37 m/s (5.7kPa): No to mild fibrosis 1.37 m/s - 2.2 m/s: Moderate to severe fibrosis >2.2 m/s (15kPa): Significant fibrosis / cirrhosis METAVIR Score F2 or higher: 1.34 m/s (5.7kPa) F3 or higher: 1.55 m/s (7.3kPa) F4: 1.80 m/s (10kPa) * If the IQR/Med is >30%, the variance in the measurements is a large and the accuracy of the measurement may be in question. Reading Location: [place] [address] CC: Dr. Michael Santana MD ~ Manager Installation: Signed [facility] Evaluation note 10-10-2024 Note Date & Type Note Facility 10-10-2024 Evaluation note Diagnosis Onset Date Resolution Encounter for screening for malignant neoplasm of colon acute October 10 8:07am [facility] Work Phone: Evaluation note 10-10-2024 Note Date & Type Note Facility 10-10-2024 Evaluation note Diagnosis Onset Date Resolution Encounter for screening for malignant neoplasm of colon acute October 10, 025 8:07am B12 nutritional deficiency acute November 15, 2024 10:52am Hyponatremia acute November 15 10:52am Polyneuropathy acute November 15, 2024 10:52am Vitamin d deficiency acute Apri 2024 10:52am [facility] Work Phone: Evaluation note 10-10-2024 Note Date & Type Note Facility 10-10-2024 Evaluation note Diagnosis Onset Date Resolution Encounter for screening for malignant neoplasm of colon acute October 10 8:07am B12 nutritional deficiency acute November 15, 2024 10:52am Hyponatremia acute November 15 10:52am Polyneuropathy acute November 15, 2024 10:52am Vitamin d deficiency acute Apri l 2024 10:52am B12 nutritional deficiency acute January 22, 2025 1:29pm Hyponatremia acute January 22 1:29pm Lumbar radiculopathy acute January 22, 2025 1:29pm Polyneuropathy acute January 22, 2025 1:29pm Vitamin d deficiency acute January 22, 2025 1:29pm [facility] Work Phone: Clinical Note 10-10-2024 Note Date & Type Note Facility 10-10-2024 Note [facility] Medical Records Department [address] [place] [address] History Physical Exam 10/10/24 0907 MR#: [id number] Acct: [id number] Name: RJ JOHNSON II Rep #: [id number] : 1975 48 From: Paddy Lanza MD PCP: Dr. Michael Santana MD Status:[facility] Location: [place] [address] HPI - General HPI Narrative RJ JOHNSON, is a 48 M who presents for his for screening colonoscopy. Patient denies any abdominal pain or blood in the stool. He has never had a colonoscopy in the past. No family history of colon cancer. [facility] Medical History High cholesterol GERD (gastroesophageal reflux disease) Alcohol use Non-smoker History of stress test Hypertension Hyperlipidemia Home Medications ???Medication ???Instructions ???Recorded ???Last Taken ???Type esomeprazole magnesium 20 mg 20 mg PO QDAY PRN GERD 08/01/24 History capsule,delayed release simvastatin 40 mg tablet 40 mg PO QDAY 08/01/24 10/09/24 Hi story Allergy/AdvReac Type Severity Reaction Status Date / Time No Known Allergies Allergy Verified 10/10/24 08:29 Family History Father Prostate cancer Surgical History History of tonsillectomy Hx of vasectomy Social History household members: spouse current occupational status: employed Smoking Status: Never smoker alcohol intake: current alcohol intake frequency: 3 or more drinks per day Alcohol type: beer substance use type: does not use Past Medical/Surgical History Planned Operation Planned Operative Procedure(s): CSCOPE Previous Hospitalizations/Surgeries HX Hospitalizations: No Any Problems With Anesthesia: No You/Your Family Experience Fever (Hyperthermia) With Anes: No Cholinesterase deficiency: No Cardiovascular Hx Hypertension: Yes (RECENTLY PUT ON BP MEDS 09/2024) Respiratory Hx Sleep Apnea: No (GOING TO BE TESTED END OF 09/2024) Hx Respiratory Tract Infection/Cold (presently): Yes (Patient has a chronic cough.) Do You Snore Loudly (louder than talking or can be heard): No Do You Often Feel Tired/ Fatigued/ Sleepy Dring Daytime?: No Has Anyone Observed You Stop Breathing During Sleep?: No Result (for STOP score): Negative Smoking Status: Never smoker Neurological Does patient have nerve stimulator: No Miscellaneous Recent Exposure to Contagious Disease: No Allergies No Known Allergies Allergy (Verified 10/10/24 08:29) Discharge Is Pt Admitted From a [facility], or a Shelter: No After D/C, Where Do you Plan to Go: Return Home Vital Signs Vital Signs Vital Signs: 10/10/24 08:30 10/10/24 08:30 10/10/24 08:58 Temperature 97.4 F L 97.4 F L Temperature Source Temporal Pulse Rate 93 93 Respiratory Rate 17 17 Respiratory Pattern Normal Blood Pressure 180/110 H 180/110 H Blood Pressure Mean 133 Blood Pressure Source Monitor Blood Pressure Position Semi-Fowlers Blood Pressure Location Left Arm Pulse Ox 100 100 Oxygen Delivery Method Room Air Room Air Weight Weight: 209 lb 7.026 oz Body Mass Index (BMI) 26.2 Physical Exam Const alert and oriented x3 HEENT normocephalic Eyes PERRL Resp normal respiratory effort and normal air movement Cardio regular rate and regular rhythm GI soft to palpation, non-tender and non-distended Extremity normal to inspection Assessment Plan Assessment/Plan (1) Encounter for screening for malignant neoplasm of colon: PLAN: I explained endoscopy in detail to the patient. I explained the risks including but not limited to stroke or heart attack with anesthesia, perforation of the GI tract, bleeding, infection. I explained that any of these could necessitate further emergency surgery. The patient understands and all questions were answered sufficiently. The patient wishes to proceed with procedure. Paddy Lanza MD Pager: [facility] [address] [place] [address] [facility] [address] [place] [address] Office: Surgery Risks - Colonoscopy Risks Include but are not Limited To: Risks include but are not limited to: Bleeding, perforation requiring further surgery, inability to complete colonoscopy requiring barium enema. 10/10/24 0908 Cosigner Signature (if applicable): CC: Dr. Paddy Lanza MD; Dr. Michael Santana MD Signed [facility] Reason for referral (narrative) Note Date & Type Note Facility Reason for referral (narrative) No reason for referral information available [facility] Work Phone: Summary Purpose Family History No Family History Records Found Relationship Condition Age at Onset Recorded Date/T naren father Malignant neoplasm of prostate Unknown Advance Directives No Advanced Directives Records Found Advance Directive Response Recorded Date/ Time Living Will Yes October 04 1:02pm Power of Electronic Imager No October 04, 2024 1:02pm Advance Directive Response Recorded Date/ Time Living Will Yes October 04 1:02pm Do you have a [facility] Power of Electronic Imager? No October 04, 2024 1:02pm Chief Complaint and Reason for Visit Chief Complaint Admit Date Amb Documentation August 01, 2024 10:42am EORDER- PSA/ AND ADDT ORDERS FOR MAX October 06, 2024 1:12pm Reason for Visit Admit Date Encounter for screening for malignant ne oplasm of colon October 10, 2024 8:07am Chief Complaint Admit Date Amb Documentation August 01, 2024 10:42am EORDER- PSA/ AND ADDT ORDERS FOR MAX October 06, 2024 1:12pm xray October 26, 2024 8:1 0am NEW ELEVATED LFTS, ETOH November 01, 2024 8:16am Chief Complaint Admit Date EORDER- PSA/ AND ADDT ORDERS FOR MAX October 06, 2024 1:12pm xray October 26, 2024 8:1 0am NEW ELEVATED LFTS, ETOH November 01, 2024 8:16am LEG WEAKNESS November 15, 2024 10:5 2am LOWER EXTREMITIES. RX HERE November 30 2:00pm BLE; WEAKNESS, POLYNEUROPATHY November 7:06am BLE; WEAKNESS, POLYNEUROPATHY November 9:19am Reason for Visit Admit Date Encounter for screening for malignant ne oplasm of colon October 10, 2024 8:07am B12 nutritional deficiency November 15 10:52am Hyponatremia November 15, 2024 10:5 2am Polyneuropathy November 15, 2024 10:5 2am Vitamin d deficiency November 15, 2024 10: 52am Chief Complaint Admit Date EORDER- PSA/ AND ADDT ORDERS FOR MARIPOSASHLOMO October 06, 2024 1:12pm xray October 26, 2024 8:1 0am NEW ELEVATED LFTS, ETOH November 01, 2024 8:16am LEG WEAKNESS November 15, 2024 10:5 2am BLE; WEAKNESS, POLYNEUROPATHY November 7:06am BLE; WEAKNESS, POLYNEUROPATHY November 9:19am LOWER EXTREMITIES. RX HERE December 20, 2024 3:30pm 2 M FU January 22, 2025 1:29p m Reason for Visit Admit Date Encounter for screening for malignant ne oplasm of colon October 10, 2024 8:07am B12 nutritional deficiency November 15 10:52am Hyponatremia November 15, 2024 10:5 2am Polyneuropathy November 15, 2024 10:5 2am Vitamin d deficiency November 15, 2024 10: 52am B12 nutritional deficiency January 22 1:29pm Hyponatremia January 22, 2025 1:29p m Lumbar radiculopathy January 22, 2025 1:29 pm Polyneuropathy January 22, 2025 1:29p m Vitamin d deficiency January 22, 2025 1:29 pm Additional Source Comments (unrecognized sect ion and content) No Status Records FoundNo Status Records Found INFORMATION SOURCE (unrecogn ized section and content) DATE CREATED AUTHOR 10/27/2024 [facility] DATE CREATED AUTHOR AUTHOR'S ORGANIZ ATION [facility] Teams (unrecognized sec tion and content) Team Status: Active Member Role Status Dates Dr. Michael Santana MD Primary Care Provider Acti ve Team Status: Inactive Member Role Status Dates Dr. Michael Santana MD Primary Care Provider Acti ve Start: October 06, 2024 End: October 06, 2024 Dr. Michael Santana MD Other Provider Active Start: October 06, 2024 End: October 06, 2024 Liudmila Schrader PNE[employer]IC [employer]S MECHANIC, [employer]IC-C Attending Provider Active S tart: October 06, 2024 End: October 06, 2024 Liudmila Schrader PNE[employer]IC SYSTEMS MECHANIC, [employer] MECHANIC-C Referring Provider Active S tart: October 06, 2024 End: October 06, 2024 Team Status: Inactive Member Role Status Dates Dr. Paddy Lanza MD Attending Provider Active Start: October 10, 2024 End: October 10, 2024 Dr. Paddy Lanza MD Referring Provider Active Start: October 10, 2024 End: October 10, 2024 Dr. Michael Santana MD Primary Care Provider Acti ve Start: October 10, 2024 End: October 10, 2024 Team Status: Active Member Role Status Dates Dr. Paddy Lanza MD Attending Provider Active Start: October 10, 2024 Dr. Paddy Lanza MD Referring Provider Active Start: October 10, 2024 Dr. Paddy Lanza MD Other Provider Active Start: October 10, 2024 Dr. Michael Santana MD Primary Care Provider Acti ve Start: October 10, 2024 Team Status: Inactive Member Role Status Dates Dr. Michael Santana MD Primary Care Provider Acti ve Start: October 16, 2024 End: October 16, 2024 Dr. Michael Santana MD Attending Provider Active Start: October 16, 2024 End: October 16, 2024 Dr. Michael Santana MD Referring Provider Active Start: October 16, 2024 End: October 16, 2024 Team Status: Inactive Member Role Status Dates Dr. Michael Santana MD Primary Care Provider Acti ve Start: October 26, 2024 End: October 26, 2024 Dr. Shamar Fritz MD Attending Provider Active S tart: October 26, 2024 End: October 26, 2024 Team Status: Inactive Member Role Status Dates Dr. Michael Santana MD Primary Care Provider Acti ve Start: November 01, 2024 End: November 01, 2024 Dr. Michael Santana MD Attending Provider Active Start: November 01, 2024 End: November 01, 2024 Dr. Michael Santana MD Referring Provider Active Start: November 01, 2024 End: November 01, 2024 Team Status: Inactive Member Role Status Dates Dr. Michael Santana MD Primary Care Provider Acti ve Start: November 15, 2024 End: November 15, 2024 Dr. Michael Santana MD Referring Provider Active Start: November 15, 2024 End: November 15, 2024 Dr. Wisam Cosby MD Attending Provider Active Start: November 15, 2024 End: November 15, 2024 Team Status: Active Member Role Status Dates Dr. Michael Santana MD Primary Care Provider Acti ve Start: November 30, 2024 Dr. Wisam Cosby MD Attending Provider Active Start: November 30, 2024 Dr. Wisam Cosby MD Referring Provider Active Start: November 30, 2024 Team Status: Inactive Member Role Status Dates Dr. Michael Santana MD Primary Care Provider Acti ve Start: December 05, 2024 End: December 05, 2024 Dr. Wisam Cosby MD Attending Provider Active Start: December 05, 2024 End: December 05, 2024 Dr. Wisam Cosby MD Referring Provider Active Start: December 05, 2024 End: December 05, 2024 Team Status: Active Member Role Status Dates Dr. Michael Santana MD Primary Care Provider Acti ve Start: December 05, 2024 Dr. Wisam Cosby MD Referring Provider Active Start: December 05, 2024 Dr. Wisam Cosby MD Other Provider Active S tart: December 05, 2024 Dr. Melissa Lema MD Attending Provider Active Start: December 05, 2024 Team Status: Active Member Role Status Dates Viola Henley Attending Provider Active Start: [place] 2023 Team Status: Active Member Role Status Dates Dr. Michael Santana MD Primary Care Provider Acti ve Start: December 20, 2024 Dr. Wisam Cosby MD Attending Provider Active Start: December 20, 2024 Dr. Wisam Cosby MD Referring Provider Active Start: December 20, 2024 Team Status: Inactive Member Role Status Dates Dr. Michael Santana MD Primary Care Provider Acti ve Start: January 22, 2025 End: January 22, 2025 Dr. Michael Santana MD Referring Provider Active Start: January 22, 2025 End: January 22, 2025 Dr. Wisam Cosby MD Attending Provider Active Start: January 22, 2025 End: January 22, 2025 FOR RECORDS PERTAINING TO PATIENTS WHO ARE OR HAVE BEEN ENROLLED IN A CHEMICAL DEPENDENCY/SUBSTANCEABUSE PROGRAM, SOME INFORMATION MAY BE OMITTED. This clinical summary was aggregated from multiple sources. Caution should be exercised in using it in the provision of clinical care. This summary normalizes information from multiple sources, and as a consequence, information in this document may materially change the coding, format and clinical context of patient data. In addition, data may be omitted in some cases. CLINICAL DECISIONS SHOULD BE BASED ON THE PRIMARY CLINICAL RECORDS. [employer] provides no warranty or guarantee of the accuracy or completeness of information in this document.
[2025-01-29 18:08] LABS: Folate, RBC (Hct) Test 37.8 % (37.5-51.0); Folates, RBC Test 1392 ng/mL (>498); Free Kappa Light Chains 46.3 mg/L (3.3-19.4); Free Lambda Light Chains 88.8 mg/L (5.7-26.3)
== END | disposition home or self-care (01) ==
LOC: MFPLAB 11:29
PROVIDERS: PCP Family Medicine; Visit Provider Psychiatry & Neurology Neurology
DX: R73.9 Hyperglycemia, unspecified (principal); G62.9 Polyneuropathy, unspecified; E83.41 Hypermagnesemia; E53.8 Deficiency of other specified B group vitamins
CPT/HCPCS: 36415; 80053; 82747; 83036; 83735; 83883; 85014; 86340

== ENCOUNTER → 2025-03-01 | Outpatient (CLI) | payer OTHER, SELFPAY ==
--- NOTE | 2025-03-01 10:40 | MRI_ITS ---
PROCEDURE: SPINE LUMBAR (ROUTINE) 03/01/2025 REASON FOR EXAM: LUMBAR RADICULOPATHY ON EMG/NCS OF LOWER EXTREMITE TECHNIQUE: SPINE LUMBAR (ROUTINE) COMPARISON: Lumbar spine radiographs 10/26/2024. FINDINGS: 5 [id number] lumbar-type vertebrae are preserved in height. No acute fracture or subluxation. Alignment is anatomic. No suspicious marrow lesion. Mild spondylotic changes with mild disc desiccation at the thoracolumbar junction, with type 2 degenerative endplate signal changes and Schmorl's nodes involving the inferior endplates of L1 and T12. Widely patent spinal canal. No disc herniation, spinal canal or neural foraminal narrowing is present on either side. Conus appears normal in signal and morphology, terminating at T12-L1. Normal appearance of the cauda equina. Unremarkable paravertebral soft tissues. MRI/Spine Lumbar (Routine) IMPRESSION: Mild spondylotic changes. No disc herniation, spinal canal or neural foraminal narrowing. Reading Location: [id number]
--- OUTSIDE RECORDS SUMMARY | 2025-03-01 18:58 | XMS RPT_ITS | CCD ---
Author Organization [facility] Care Team Providers Care Vp Marketing Name Role Phone PHYSICIAN, NONE Primary Care Unavailable MAX NELSON, DR RODRIGUEZ Attending HayleyalViola Graham Attending Provider Unavailable Max NELSON, Dr. Rodriguez Primary Care Provider Max NELSON, Dr. Rodriguez Other Provider Raciel CODING QUALITY ANALYST-C, Liudmila Attending Provider Raciel CODING QUALITY ANALYST-C, Liudmila Referring Provider [phone] Myla NELSON, Dr. Thomason Attending Provider Myla NELSON, Dr. Thomason Referring Provider Myla NELSON, Dr. Thomason Other Provider Max NELSON, Dr. Rodriguez Attending Provider Max NELSON, Dr. Rodriguez Referring Provider Ctarina NELSON, Dr. Ibanez Attending Provider Dr. Wisam Cosby MD Attending Provider Dr. Wisam Cosby MD Referring Provider Dr. Wiasm Cosby MD Other Provider Pita NELSON, Dr. Torres Attending Provider Dr. Wisam Cosby MD Referring Provider Michael Santana Primary Care Unavailable Michael Santana Referring Unavailable Michael Santana Attending Unavailable Michael Santana Primary Care Unavailable Wisam Cosby Referring Unavailable Wisam Cosby Attending Unavailable Michael Santana Primary Care Unavailable Wisam Cosby [facility]ending [facility] Unavailable Wisam Cosby Referring Unavailable Wisam Cosby Attending Unavailable [facility] Primary Care Unavailable Max, [facility] Referring Unavailable Wisam Cosby Attending Unavailable Viola Henley Attending Unavailable [facility] Primary Care Unavailable Wisam Cosby Consulting Unavailable Wisam Cosby Referring Unavailable Melissa Lema Attending Unavailable [facility] Primary Care Unavailable Paddy Lanza Referring Unavailable Paddy Lanza Attending Unavailable Paddy Lanza Consulting Unavailable [facility] Primary Care Unavailable Michael Santana Referring Unavailable Wisam Cosby Attending Unavailable [facility] Primary Care Unavailable Shamar Fritz Attending Unavailable [facility] Primary Care Unavailable Liudmila Schrader Referring Unavailable Liudmila Schrader Attending Unavailable Michael Santana Consulting Unavailable Paddy Lanza Attending Unavailable Paddy Lanza Referring Unavailable [facility] Primary Care Unavailable [facility] Primary Care Unavailable Max, Michael Referring Unavailable Michael Santana Attending Unavailable [facility] Primary Care Unavailable Max, Michael Referring Unavailable Michael Santana Attending Unavailable Medications Current Medications Medication Drug Class(es) Dates Sig (Normalized) Sig (Original) cholecalciferol 1.25 mg oral capsule (4 sources) Vitamin D Start: 11-15-2024 End: 01-24-2025 take 1 capsule by mouth every week Cholecalciferol (Vitamin D3) 1,250 mcg (50,000 unit) capsule Active 1250 ug PO EVERY WEEK January 24, 2025 5:40pm esomeprazole 20 mg delayed release oral capsule (5 sources) Proton Pump Inhibitor Start: 08-01-2024 take 1 capsule by mouth once daily as needed for gastroesophageal reflux disease Esomeprazole Magnesium 20 mg capsule,delayed release(DR/EC) Active 20 mg PO daily as needed for GERD August 01, 2024 1:00am simvastatin 40 mg oral tablet (5 sources) HMG-CoA Reductase Inhibitor Start: 08-01-2024 take 1 tablet by mouth once daily Simvastatin 40 mg tablet Active 40 mg PO daily August 01, 2024 1:00am Problems Active Problems Problem Classification Problem Date Documented Date Episodic/Chronic Diabetes mellitus without complication (4 sources) Hyperglycemia; Translations: [Hyperglycemia, unspecified] Onset: 01-31-2025 11-15-2024 Episodic Essential hypertension (1 source) Essential (primary) hypertension; Translations: [Essential (primary) hypertension] Onset: 10-18-2024 Chronic Influenza (5 sources) Influenza due to Influenza A virus; Translations: [Influenza due to other identified influenza virus with other respiratory manifestations] 07-31-2022 Episodic Nutritional deficiencies (9 sources) Vitamin D deficiency; Translations: [Vitamin D deficiency, unspecified] Onset: 11-15-2024 11-15-2024 Chronic Other connective tissue disease (3 sources) Paraparesis; Translations: [Other symptoms and signs involving the musculoskeletal system] 11-15-2024 Episodic Other connective tissue disease (2 sources) Other symptoms and signs involving the musculoskeletal system; Translations: [Other symptoms and signs involving the musculoskeletal system] Onset: 01-09-2025 Episodic Other nervous system disorders (8 sources) Polyneuropathy; Translations: [Polyneuropathy, unspecified] 11-15-2024 Chronic Other nervous system disorders (2 sources) Polyneuropathy, unspecified; Translations: [Polyneuropathy, unspecified] Onset: 11-15-2024 Chronic Other nutritional; endocrine; and metabolic disorders (3 sources) Hypermagnesemia; Translations: [Hypermagnesemia] 11-15-2024 Chronic Other nutritional; endocrine; and metabolic disorders (1 source) Hypermagnesemia; Translations: [Hypermagnesemia] Onset: 11-15-2024 Chronic Other upper respiratory infections (5 sources) Sore throat symptom; Translations: [Acute pharyngitis, unspecified] 07-31-2022 Episodic Spondylosis; intervertebral disc disorders; other back problems (5 sources) Lumbar radiculopathy; Translations: [Radiculopathy, lumbar region] Onset: 01-22-2025 01-22-2025 Episodic Unclassified (3 sources) G62.9 - Polyneuropathy, unspecified,R29.898 - Other symptoms and signs involving the musculoskeletal system Past or Other Problems Problem Classification Problem Date Documented Da te Episodic/Chronic Fluid and electrolyte disorders (9 sources) Hyponatremia; Translations: [Hypo-osmolality and hyponatremia] Onset: 11-15-2024 11-15-2024 Episodic Nutritional deficiencies (9 sources) Cobalamin deficiency; Translations: [Deficiency of other specified B group vitamins] Onset: 11-15-2024 11-15-2024 Episodic Other screening for suspected conditions (not mental disorders or infectious disease) (13 sources) Patient encounter status; Translations: [Encounter for screening for malignant neoplasm of colon] Onset: 10-16-2024 08-01-2024 Episodic Results Test Name Value Interpretation Reference Range Facility Folates, RBCon 01-29-2025 Fol.,Hemolysate 526.0 ng/mL Normal Not Estab. [facility] Comment on above: Performed By: #### L 501.5101, L3300.8000, L500.4100, L400.2011, L500.4050, L100.0100, L503.6550, L505.5000, L506.1000, L503.6150, L502.0500, L101.9900, L501.9520, L503.0105, L501.5200 #### [facility] [address] [place], [place], [id number] Folate, RBC 1392 ng/mL Normal >498 [facility] Comment on above: Performed By: #### L 501.5101, L3300.8000, L500.4100, L400.2011, L500.4050, L100.0100, L503.6550, L505.5000, L506.1000, L503.6150, L502.0500, L101.9900, L501.9520, L503.0105, L501.5200 #### [facility] [address] [place], [place], [id number] Hematocrit (Bld) [Volume fraction] 37.8 % Normal 37.5-51.0 [facility] Comment on above: Performed By: #### L 501.5101, L3300.8000, L500.4100, L400.2011, L500.4050, L100.0100, L503.6550, L505.5000, L506.1000, L503.6150, L502.0500, L101.9900, L501.9520, L503.0105, L501.5200 #### [facility] [address] [place], [address] Intrinsic Factor Abon 2024 INTRINS FACT AB 1.0 AU/mL Normal 0.0-1.1 [facility] Comment on above: Result Comment: Perf ormed at: - [facility] [address] [id number] Handstitching Machine Armhole Feller: Pablito Rubalcava PhD, Phone: [phone] Performed at: - [facility] [address] [id number] Handstitching Machine Armhole Feller: Felicia Garcia MD, Phone: [phone] Performed By: #### L 501.5101, L3300.8000, L500.4100, L400.2011, L500.4050, L100.0100, L503.6550, L505.5000, L506.1000, L503.6150, L502.0500, L101.9900, L501.9520, L503.0105, L501.5200 #### [facility] [address] [place], [address] [place] Lambda Light Chainson 01-29-2025 FR KAPPA LT CHN 46.3 mg/L Abnormal 3.3-19.4 [facility] Comment on above: Performed By: #### L 501.5101, L3300.8000, L500.4100, L400.2011, L500.4050, L100.0100, L503.6550, L505.5000, L506.1000, L503.6150, L502.0500, L101.9900, L501.9520, L503.0105, L501.5200 #### [facility] [address] [place], [place], [id number] FR LAMBDA LT CH 88.8 mg/L Abnormal 5.7-26.3 [facility] Comment on above: Performed By: #### L 501.5101, L3300.8000, L500.4100, L400.2011, L500.4050, L100.0100, L503.6550, L505.5000, L506.1000, L503.6150, L502.0500, L101.9900, L501.9520, L503.0105, L501.5200 #### [facility] [address] [place], [place], [id number] KAPPA/LAMBDA % 0.52 Normal 0.26-1.65 [facility] Comment on above: Performed By: #### L 501.5101, L3300.8000, L500.4100, L400.2011, L500.4050, L100.0100, L503.6550, L505.5000, L506.1000, L503.6150, L502.0500, L101.9900, L501.9520, L503.0105, L501.5200 #### [facility] [address] [place], [place], [id number] Anion gap in Serum or Plasma Ordered By: Wisam Cosby on 01-24-2025 Anion gap [Moles/Vol] 13 mmol/L 5-15 [facility] BUN/creatinine ratioOrdered By: Wisam Cosby on 01-24-2025 Urea nitrogen/Creatinine [Mass ratio] 14.2 mg/mg 10-20 [facility] Bilirubin, totalOrdered By: Wisam Cosby on 01-24-2025 Bilirubin [Mass/Vol] 1.06 mg/dL 0.00-1.30 [facility] Carbon dioxide, total [Moles /volume] in Central venous bloodOrdered By: Wisam Cosby on 01-24-2025 CO2 [Moles/Vol] 23.4 mmol/L 21.0-32.0 [facility] Chloride assayOrdered By: Ra aylin Cosby on 01-24-2025 Chloride [Moles/Vol] 92 mmol/L Low 98-108 [facility] Comprehensive Metabolic Prof ilon 01-24-2025 Albumin [Mass/Vol] 4.1 g/dL Normal 3.5-5.0 [facility] Comment on above: Performed By: #### L 501.5101, L3300.8000, L500.4100, L400.2011, L500.4050, L100.0100, L503.6550, L505.5000, L506.1000, L503.6150, L502.0500, L101.9900, L501.9520, L503.0105, L501.5200 #### [facility] [address] [place], [address] Albumin/Globulin [Mass ratio] 1.0 {ratio} Normal 0.9-2.4 [facility] Comment on above: Performed By: #### L 501.5101, L3300.8000, L500.4100, L400.2010, L500.4050, L100.0100, L503.6550, L505.5000, L506.1000, L503.6150, L502.0500, L101.9900, L501.9520, L503.0105, L501.5200 #### [facility] [address] [place], [place], [id number] ALK PHOS 85 U/L Normal 40-129 [facility] Comment on above: Performed By: #### L 501.5101, L3300.8000, L500.4100, L400.2010, L500.4050, L100.0100, L503.6550, L505.5000, L506.1000, L503.6150, L502.0500, L101.9900, L501.9520, L503.0105, L501.5200 #### [facility] [address] [place], [address] ALT [Catalytic activity/Vol] 81 U/L High <=46 [facility] Comment on above: Performed By: #### L 501.5101, L3300.8000, L500.4100, L400.2010, L500.4050, L100.0100, L503.6550, L505.5000, L506.1000, L503.6150, L502.0500, L101.9900, L501.9520, L503.0105, L501.5200 #### [facility] [address] [place], [place], [id number] AST [Catalytic activity/Vol] 102 U/L High <=37 [facility] Comment on above: Performed By: #### L 501.5101, L3300.8000, L500.4100, L400.2011, L500.4050, L100.0100, L503.6550, L505.5000, L506.1000, L503.6150, L502.0500, L101.9900, L501.9520, L503.0105, L501.5200 #### [facility] [address] [place], [address] Bilirubin [Mass/Vol] 1.06 mg/dL Normal 0.00-1.30 [facility] Comment on above: Performed By: #### L 501.5101, L3300.8000, L500.4100, L400.2011, L500.4050, L100.0100, L503.6550, L505.5000, L506.1000, L503.6150, L502.0500, L101.9900, L501.9520, L503.0105, L501.5200 #### [facility] [address] [place], [place], [id number] BUN/CRE 14.2 RATIO Normal 10-20 [facility] Comment on above: Performed By: #### L 501.5101, L3300.8000, L500.4100, L400.2011, L500.4050, L100.0100, L503.6550, L505.5000, L506.1000, L503.6150, L502.0500, L101.9900, L501.9520, L503.0105, L501.5200 #### [facility] [address] [place], [address] Calcium [Mass/Vol] 10.0 mg/dL Normal 7.6-11.0 [facility] Comment on above: Performed By: #### L 501.5101, L3300.8000, L500.4100, L400.2011, L500.4050, L100.0100, L503.6550, L505.5000, L506.1000, L503.6150, L502.0500, L101.9900, L501.9520, L503.0105, L501.5200 #### [facility] [address] [place], [address] Chloride [Moles/Vol] 92 mmol/L Low 98-108 [facility] Comment on above: Performed By: #### L 501.5101, L3300.8000, L500.4100, L400.2011, L500.4050, L100.0100, L503.6550, L505.5000, L506.1000, L503.6150, L502.0500, L101.9900, L501.9520, L503.0105, L501.5200 #### [facility] [address], [address] CO2 [Moles/Vol] 23.4 mmol/L Normal 21.0-32.0 [facility] Comment on above: Performed By: #### L 501.5101, L3300.8000, L500.4100, L400.2011, L500.4050, L100.0100, L503.6550, L505.5000, L506.1000, L503.6150, L502.0500, L101.9900, L501.9520, L503.0105, L501.5200 #### [facility] [address] [place], [address] Creatinine [Mass/Vol] 0.98 mg/dL Normal 0.70-1.20 [facility] Comment on above: Performed By: #### L 501.5101, L3300.8000, L500.4100, L400.2011, L500.4050, L100.0100, L503.6550, L505.5000, L506.1000, L503.6150, L502.0500, L101.9900, L501.9520, L503.0105, L501.5200 #### [facility] [address] [place], [place], [id number] GAP 13 Normal 5-15 [facility] Comment on above: Performed By: #### L 501.5101, L3300.8000, L500.4100, L400.2011, L500.4050, L100.0100, L503.6550, L505.5000, L506.1000, L503.6150, L502.0500, L101.9900, L501.9520, L503.0105, L501.5200 #### [facility] [address] [place], [address] GFR/1.73 sq M.predicted among non-blacks MDRD (S/P/Bld) [Vol rate/Area] 95 mL/min/{1.73_m2} Normal >60 [facility] Comment on above: Result Comment: mL/m in/1.73m2 CKD-EPI Creatinine Equation (2020) Performed By: #### L 501.5101, L3300.8000, L500.4100, L400.2010, L500.4050, L100.0100, L503.6550, L505.5000, L506.1000, L503.6150, L502.0500, L101.9900, L501.9520, L503.0105, L501.5200 #### [facility] [address] [place], [address] Globulin (S) [Mass/Vol] 4.2 g/dL Normal 2.2-4.2 [facility] Comment on above: Performed By: #### L 501.5101, L3300.8000, L500.4100, L400.2011, L500.4050, L100.0100, L503.6550, L505.5000, L506.1000, L503.6150, L502.0500, L101.9900, L501.9520, L503.0105, L501.5200 #### [facility] [address] [place], [address] Glucose [Mass/Vol] 98 mg/dL Normal 70-99 [facility] Comment on above: Performed By: #### L 501.5101, L3300.8000, L500.4100, L400.2011, L500.4050, L100.0100, L503.6550, L505.5000, L506.1000, L503.6150, L502.0500, L101.9900, L501.9520, L503.0105, L501.5200 #### [facility] [address] [place], [address] Potassium [Moles/Vol] 4.2 mmol/L Normal 3.3-5.1 [facility] Comment on above: Performed By: #### L 501.5101, L3300.8000, L500.4100, L400.2011, L500.4050, L100.0100, L503.6550, L505.5000, L506.1000, L503.6150, L502.0500, L101.9900, L501.9520, L503.0105, L501.5200 #### [facility] [address] [place], [address] Sodium [Moles/Vol] 128 mmol/L Low 133-145 [facility] Comment on above: Performed By: #### L 501.5101, L3300.8000, L500.4100, L400.2011, L500.4050, L100.0100, L503.6550, L505.5000, L506.1000, L503.6150, L502.0500, L101.9900, L501.9520, L503.0105, L501.5200 #### [facility] [address] [place], [place], [id number] T PROT 8.3 g/dL Normal 5.9-8.4 [facility] Comment on above: Performed By: #### L 501.5101, L3300.8000, L500.4100, L400.2011, L500.4050, L100.0100, L503.6550, L505.5000, L506.1000, L503.6150, L502.0500, L101.9900, L501.9520, L503.0105, L501.5200 #### [facility] [address] [place], [place], [address] Urea nitrogen [Mass/Vol] 14 mg/dL Normal 4-19 [facility] Comment on above: Performed By: #### L 501.5101, L3300.8000, L500.4100, L400.2011, L500.4050, L100.0100, L503.6550, L505.5000, L506.1000, L503.6150, L502.0500, L101.9900, L501.9520, L503.0105, L501.5200 #### [facility] [address] [place], [place], [id number] Erythrocyte folate measureme nt with hematocritOrdered By: Wisam Cosby on 01-24-2025 Hematocrit (Bld) [Volume fraction] 37.8 % 37.5-51.0 [facility] Glomerular filtration rate ( GFR) estimation/1.73 sq m using serum, plasma, or whole bOrdered By: Wisam Cosby on 01-24-2025 GFR/1.73 sq M.predicted among non-blacks MDRD (S/P/Bld) [Vol rate/Area] 95 mL/min/{1.73_m2} >60 [facility] Comment on above: mL/min/1.73m2 CKD-EP I Creatinine Equation (2020) Hemoglobin A1con 01-24-2025 HbA1c (Bld) [Mass fraction] 5.3 % Normal <=5.6 [facility] Comment on above: Result Comment: Norm al < 5.7 % Prediabetic 5.7 - 6.4 % Diabetic >or= 6.5 % Please note range changes. Performed By: #### L 501.5101, L3300.8000, L500.4100, L400.2011, L500.4050, L100.0100, L503.6550, L505.5000, L506.1000, L503.6150, L502.0500, L101.9900, L501.9520, L503.0105, L501.5200 #### [facility] [address] [place], [place], [id number] Hemoglobin A1c percentageOrd ered By: Wisam Cosby on 01-24-2025 HbA1c (Bld) [Mass fraction] 5.3 % <5.7 [facility] Comment on above: Normal < 5.7 % Predi abetic 5.7 - 6.4 % Diabetic >or= 6.5 % Please note range changes. Laboratory - Chemistry and C hemistry - challengeOrdered By: Wisam Cosby on 01-24-2025 AST [Catalytic activity/Vol] 102 U/L High <38 [facility] Magnesiumon 01-24-2025 Magnesium [Mass/Vol] 1.9 mg/dL Normal 1.5-2.2 [facility] Comment on above: Performed By: #### L 501.5101, L3300.8000, L500.4100, L400.2010, L500.4050, L100.0100, L503.6550, L505.5000, L506.1000, L503.6150, L502.0500, L101.9900, L501.9520, L503.0105, L501.5200 #### [facility] [address] [place], [address] Magnesium measurement (mass/ volume)Ordered By: Wisam Cosby on 01-24-2025 Magnesium (Unsp spec) [Mass/Vol] 1.9 mg/dL 1.5-2.2 [facility] Potassium measurement (mass/ volume)Ordered By: Wisam Cosby on 01-24-2025 Potassium (Unsp spec) [Mass/Vol] 4.2 mmol/L 3.3-5.1 [facility] Serum creatinine measurement (mass/volume)Ordered By: Wisam Cosby on 01-24-2025 Creatinine [Mass/Vol] 0.98 mg/dL 0.70-1.20 [facility] Serum globulin measurementOr dered By: Wisam Cosby on 01-24-2025 Globulin (S) [Mass/Vol] 4.2 g/dL 2.2-4.2 [facility] Serum glucose measurement (m ass/volume)Ordered By: Wisam Cosby on 01-24-2025 Glucose [Mass/Vol] 98 mg/dL 70-99 [facility] Serum immunoglobulin kappa l ight chains/immunoglobulin lambda light chains mass ratioOrdered By: Wisam Cosby 01-24-2025 Immunoglobulin light chains.kappa/Immunoglobulin light chains.lambda (S) [Mass ratio] 0.52 0.26-1.65 [facility] Serum or plasma alanine bruno otransferase (ALT) measurementOrdered By: Wisam Cosby on 01-24-2025 ALT [Catalytic activity/Vol] 81 U/L High <47 [facility] Serum or plasma albumin carlos urement (mass/volume)Ordered By: Wisam Cosby 01-24-2025 Albumin [Mass/Vol] 4.1 g/dL 3.5-5.0 [facility] Serum or plasma albumin/glob ulin mass ratioOrdered By: Wisam Cosby 01-24-2025 Albumin/Globulin [Mass ratio] 1.0 {ratio} 0.9-2.4 [facility] Serum or plasma alkaline ann sphatase measurementOrdered By: Wisam Cosby 01-24-2025 ALP [Catalytic activity/Vol] 85 U/L 40-129 [facility] Serum or plasma calcium carlos urement (mass/volume)Ordered By: Wisam Cosby 01-24-2025 Calcium [Mass/Vol] 10.0 mg/dL 7.6-11.0 [facility] Serum or plasma immunoglobul in kappa light chains measurement (mass/volume)Ordered By: Wisam Cosby on 01-24-2025 Immunoglobulin light chains.kappa [Mass/Vol] 46.3 mg/L High 3.3-19.4 [facility] Serum or plasma urea nitroge n measurement (mass/volume)Ordered By: Wisam Cosby on 01-24-2025 Urea nitrogen [Mass/Vol] 14 mg/dL 4-19 [facility] Sodium levelOrdered By: Stefani Cosby on 01-24-2025 Sodium [Moles/Vol] 128 mmol/L Low 133-145 [facility] Total proteinOrdered By: Xavi Cosby on 01-24-2025 Protein [Mass/Vol] 8.3 g/dL 5.9-8.4 [facility] Neurology Visit Reporton Neurology Visit Report [facility] [address], [address] [place] [address] OFFICE VISIT Date of Service: 01/22/25 MR#: [id number] Acct: [id number] Name: RJ JOHNSON II Rep #: [id number] : 1975 Provider: Dr. Wisam joe MD Age/Sex: 49/M Location[place] [facility] [place] Status: Signed with Addenda ADDENDUM by Dr. Wisam Cosby MD on 02/14/25 at 3303 Addendum Addendum (02/14/2025): CMP, folate, serum free light chains (01/24/2025): Free kappa light chains 46.3 (high), free lambda light chains 88.8 (high), sodium 128 (low), AST 102 (high), ALT 81 (high) I spoke with the patient by phone today (02/14/2025). He states that he has discontinued the use of alcohol and has diminished his free water intake. He is consuming beverages which contain electrolytes. He may consider adding salt to his diet. A serum protein electrophoresis, serum immunoelectrophoresis and urine immunoelectrophoresis will be checked. A repeat serum sodium will be checked. 02/14/25 1741 Date Wisam Cosby MD cc: Dr. Michael Santana MD * Signed HPI HPI Chief Complaint: Establish Care Details: Interim History: Rj returns for follow-up visit. He has a history of hyperlipidemia and obstructive sleep apnea. Since around July 2024, he has been experiencing weakness distally in the lower extremities and has been having some gait imbalance. He reported having decreased sensation in both feet. He is not experiencing lower extremity pain. He is not experiencing neck pain, low back pain, speech difficulty, swallowing difficulty, vision change, headaches, vertigo, disequilibrium, or lightheadedness. He is able to ambulate independently however he has difficulty performing activities, such as running. Laboratory evaluation revealed a [...] alcohol consumption beginning in October 2024 and more recently has consumed about 2 cans of alcohol per week. B12 injections were initiated for his B12 deficiency. He has a history of excessive water consumption as well as coffee consumption. He has reduced his water intake. He has been adding an dvof-pga-dqiogbb electrolyte packet supplement to some of his water consumption. He is to begin CPAP for his obstructive sleep apnea. He denied having numbness, pain, or weakness in the upper extremities. He has been taking simvastatin for about 15 years. He has started vitamin D supplementation for his vitamin D deficiency. Recent physical therapy was not of benefit. Physical Exam: Neuro: The patient is awake and alert and responds appropriately; speech is fluent; motor strength is 4/5 in the foot dorsiflexors bilaterally On prior assessment (November 2024), no muscle fasciculations were noted in the calves; no atrophy was noted in the calves. Supplemental Info CBC, CMP, urine tox screen, TSH, vitamin D, B12, thiamine, lipid profile, magnesium, iron, ferritin (10/06/2024): Hemoglobin 11.5 (low), hematocrit 32.4 (low), sodium 127 (low), magnesium 2.9 (high),, ferritin 856 (high), GGT 424 (high), AST 179 (high), ALT 135 (high), cholesterol 210 (high), LDL 104 (normal), HDL 93 (normal), triglycerides 66 (normal), B12 207 (low) vitamin D 8 (low) CMP, ammonia, hepatitis panel, (10/16/2024): Sodium 128 (low), glucose 101 (high), serum osmolality 268 (low), AST 93 (high), ALT 94 (high) Head MRI (10/23/2024): Findings: Intracranial structures/ventricles: There [...] for age. 2. No acute intracranial finding. Lumbar spine x-rays (10/26/2024): FINDINGS: VERTEBRAE: Unremarkable. No acute fracture. Normal alignment. SACRUM/COCCYX: Unremar (more content not included)... Normal [facility] NCS and/or EMG Patienton NCS and/or EMG Patient [facility] Pulmonary Services/Neurology [address] [place] [address] MR#: [id number] Acct: [id number] Name: RJ JOHNSON SHINE Rep #: [id number] : 1975 48 From: Melissa Lema MD Referring Dr: Wisam Cosby MD Status: REG CL I Location: [facility] Date: 12/05/24 Sex: M C NCS and/or [...] Multi Select Codes Neurology Neurology Interp Codes: 24694-85 Musc test done w/n test comp (interp) (2) and 13018-43 Nrv cndj test 7-8 studies (interp) 12/05/24 1251 Date Melissa Lema MD CC: Dr. Melissa Lema MD; Dr. Michael Santana MD; Dr. Wisam Cosby MD Date Dictated: 12/05/24918 Date Transcribed: 12/05/24918 Creping Machine Operator: Signed Normal [facility] Inital Evaluation (1) - PTon 11-27-2024 Inital Evaluation (1) - PT [facility] Physical [facility] [address] [place] [address]. [address] [place] [address] / REHABILITATION SERVICES INITIAL EVALUATION MR#: [id number] Acct: [id number] Name: RJ JOHNSON II Rep #: [id number] : 1975 48 From: Emerson Ortiz DPT Referring Dr.: Dr. Wisam Cosby MD Status: REG RCR Insurance: [facility] S[employer] [facility]Y [facility]URANCE Patient's Visit Information Visit Information Visit Information: RJ JOHNSON II is a 48 year old M referred to Physical Therapy by Dr. Wisam Cosby MD with a diagnosis of Polyneuropathy. Date of Evaluation: 11/27/24 Physical Therapist: Emerson Ortiz DPT Visit Plan Frequency: 1x/Week Duration: 6 Weeks [...] and motor function, To increase tolerance to activity/condition/pos ition and To improve performance and independence with ADL's Text: Thank you for the opportunity to evaluate your patient. For Medicare and Medicare HMO plans, please review the plan of care and approve it. It will need to be FAXED BACK to us at [phone] for Medicare purposes. For Medicare only, by signing this I certify the plan of care. Please let me know if there are questions or concerns regarding this plan of care. Physician Signature: Date:__ 11/27/24 1533 CC: Dr. Michael Santana MD; Dr. Wisam Cosby MD CLS Signed Normal [facility] Neurology Visit Reporton Neurology Visit Report [facility] [address], [address] [place] [address] OFFICE VISIT Date of Service: 11/15/24 MR#: [id number] Acct: [id number] Name: RJ JOHNSON II Rep #: [id number] : 1975 Provider: Dr. Wisam joe MD Age/Sex: 48/M Location: [facility] [place] Status: Signed with Addenda ADDENDUM by Dr. [...] some coffee. He has started adding an [id number] electrolyte packet some of his water consumption. [...] and brachi (more content not included)... Normal [facility] ABD Limited w/ Elastographyo n 11-01-2024 ABD Limited w/ Elastography [facility] Imaging Services [address] [place] [id number] ABD Limited w/ Elastography MR#: [id number] Acct: [id number] Name: RJ JOHNSON II Rep #: [id number] : 1975 M 48 From: Miguel Angel lux MD PCP: Dr. Michael Santana MD Status: [facility] Study: ABD Limited w/ Elastography Date of Exam: 10/14 05/10 Exam# [id number] Ordering Dr: Michael Santana PROCEDURE: ABD LIMITED W/ ELASTOGRAPHY REASON FOR EXAM: NEW ELEVATED LFTS, ETOH. COMPARISON: None. TECHNIQUE: Right upper quadrant abdominal ultrasound. Charly ElastQ Imaging shear wave elastography for non- invasive assessment of liver tissue stiffness. [employer] EPIQ Elite. FINDINGS: LIVER: Size: Enlarged (hepatomegaly) [...] measurement may be in question. Reading Location: [place] [address] CC: Dr. Michael Santana MD Creping Machine Operator: Signed Normal [facility] Lumbar Spine 2 or 3 Viewson 10-26-2024 Lumbar Spine 2 or 3 Views [facility] Imaging Services [address] [place] [address] Lumbar Spine 2 or 3 Views MR#: [id number] Acct: [id number] Name: RJ JOHNSON II Rep #: [id number] : 1975 M 48 From: Mg Orta MD PCP: Dr. Michael Santana MD Status: DEP AMB Study: Lumbar Spine 2 or 3 Views Date of Exam: Exam# [id number] Ordering Dr: Michael Santana EXAM: XR Lumbosacral [...] Views IMPRESSION: No acute fracture. Reading Location: [facility] CC: Dr. Michael Santana MD Creping Machine Operator: Signed Normal [facility] MRI BRAIN W/O CONTRASTon MRI BRAIN W/O [...] 10/23/2024 12:11:21 PM Ordering Provider: MICHAEL SANTANA Normal [facility] Celiac Disease Profileon ENDOMYSIAL IGA Negative Normal Negative [facility] Comment on above: Performed By: #### L 501.5101, L3300.8000, L500.4100, L400.2011, L500.4050, L100.0100, L503.6550, L505.5000, L506.1000, L503.6150, L502.0500, L101.9900, L501.9520, L503.0105, L501.5200 #### [facility] [address] [place], [address] IMMUNOGLOB A QN 451 mg/dL High 90-386 [facility] Comment on above: Performed By: #### L 501.5101, L3300.8000, L500.4100, L400.2011, L500.4050, L100.0100, L503.6550, L505.5000, L506.1000, L503.6150, L502.0500, L101.9900, L501.9520, L503.0105, L501.5200 #### [facility] [address] [place], [address] tTG IGA <2 Normal 0-3 [facility] Comment on above: Result Comment: Nega tive 0 - 3 Weak Positive 4 - 10 Positive >10 Tissue Transglutaminase (tTG) has been identified as the endomysial antigen. Studies have demonstr- ated that endomysial IgA antibodies have over 99% specificity for gluten sensitive enteropathy. Performed By: #### L 501.5101, L3300.8000, L500.4100, L400.2010, L500.4050, L100.0100, L503.6550, L505.5000, L506.1000, L503.6150, L502.0500, L101.9900, L501.9520, L503.0105, L501.5200 #### [facility] [address] [place], [address] Hepatitis Panel Acuteon 03-0 COMMENT Comment Normal . [facility] Comment on above: Result Comment: Not infected with HCV unless early or acute infection is suspected (which may be delayed in an immunocompromised individual), or other evidence exists to indicate HCV infection. Performed at: - [address] [id number] Handstitching Machine Armhole Feller: Pablito Rubalcava PhD, Phone: [phone] Performed By: #### L 501.5101, L3300.8000, L500.4100, L400.2011, L500.4050, L100.0100, L503.6550, L505.5000, L506.1000, L503.6150, L502.0500, L101.9900, L501.9520, L503.0105, L501.5200 #### [facility] [address] [place], [address] HEP B CORE,IgM Negative Normal Negative [facility] Comment on above: Performed By: #### L 501.5101, L3300.8000, L500.4100, L400.2011, L500.4050, L100.0100, L503.6550, L505.5000, L506.1000, L503.6150, L502.0500, L101.9900, L501.9520, L503.0105, L501.5200 #### [facility] [address] [place], [address] HEP B SURF AG Negative Normal Negative [facility] Comment on above: Performed By: #### L 501.5101, L3300.8000, L500.4100, L400.2011, L500.4050, L100.0100, L503.6550, L505.5000, L506.1000, L503.6150, L502.0500, L101.9900, L501.9520, L503.0105, L501.5200 #### [facility] [address] [place], [address] HEP C VIRUS AB Non-Reactive Normal Non Reactive [facility] Comment on above: Performed By: #### L 501.5101, L3300.8000, L500.4100, L400.2011, L500.4050, L100.0100, L503.6550, L505.5000, L506.1000, L503.6150, L502.0500, L101.9900, L501.9520, L503.0105, L501.5200 #### [facility] [address] [place], [address] HEPATITIS A-IgM Negative Normal Negative [facility] Comment on above: Result Comment: A ne gative anti-HAV IgM result suggests no recent or current HAV infection. Performed By: #### L 501.5101, L3300.8000, L500.4100, L400.2011, L500.4050, L100.0100, L503.6550, L505.5000, L506.1000, L503.6150, L502.0500, L101.9900, L501.9520, L503.0105, L501.5200 #### [facility] [address] [place], [address] Alcohol, Blood (Medical)-Ser umon 10-16-2024 SERUM ETOH < 10.1 Normal <=10.0 [facility] Comment on above: Result Comment: This test is for medical purposes only. The legal definition of intoxication varies according to local law. Performed By: #### L 501.5101, L3300.8000, L500.4100, L400.2011, L500.4050, L100.0100, L503.6550, L505.5000, L506.1000, L503.6150, L502.0500, L101.9900, L501.9520, L503.0105, L501.5200 #### [facility] [address] [place], [address] Ammoniaon 10-16-2024 Ammonia (P) [Moles/Vol] 24.7 umol/L Normal 16-60 [facility] Comment on above: Performed By: #### L 501.5101, L3300.8000, L500.4100, L400.2011, L500.4050, L100.0100, L503.6550, L505.5000, L506.1000, L503.6150, L502.0500, L101.9900, L501.9520, L503.0105, L501.5200 #### [facility] [address] [facility] [place], [address] BUN/creatinine ratioOrdered By: Michael Santana on 10-16-2024 Urea nitrogen/Creatinine [Mass ratio] 13.7 mg/mg 10-20 [facility] Bilirubin, totalOrdered By: Michael Santana on 10-16-2024 Bilirubin [Mass/Vol] 1.03 mg/dL 0.00-1.30 [facility] Carbon dioxide measurementOr dered By: Michael Santana on 10-16-2024 CO2 [Moles/Vol] 24.5 mmol/L 22.0-29.0 [facility] Chloride measurementOrdered By: Michael Santana on 10-16-2024 Chloride [Moles/Vol] 92 mmol/L Low 96-108 [facility] Comprehensive Metabolic Prof ilon 10-16-2024 Albumin [Mass/Vol] 3.8 g/dL Normal 3.5-5.0 [facility] Comment on above: Performed By: #### L 501.5101, L3300.8000, L500.4100, L400.2010, L500.4050, L100.0100, L503.6550, L505.5000, L506.1000, L503.6150, L502.0500, L101.9900, L501.9520, L503.0105, L501.5200 #### [facility] [address] [place], [address] Albumin/Globulin [Mass ratio] 1.0 {ratio} Normal 0.9-2.4 [facility] Comment on above: Performed By: #### L 501.5101, L3300.8000, L500.4100, L400.2010, L500.4050, L100.0100, L503.6550, L505.5000, L506.1000, L503.6150, L502.0500, L101.9900, L501.9520, L503.0105, L501.5200 #### [facility] [address] [place], [place], [id number] ALK PHOS 68 U/L Normal 40-129 [facility] Comment on above: Performed By: #### L 501.5101, L3300.8000, L500.4100, L400.2010, L500.4050, L100.0100, L503.6550, L505.5000, L506.1000, L503.6150, L502.0500, L101.9900, L501.9520, L503.0105, L501.5200 #### [facility] [address] [place], [place], [id number] ALT [Catalytic activity/Vol] 94 U/L High <=46 [facility] Comment on above: Performed By: #### L 501.5101, L3300.8000, L500.4100, L400.2011, L500.4050, L100.0100, L503.6550, L505.5000, L506.1000, L503.6150, L502.0500, L101.9900, L501.9520, L503.0105, L501.5200 #### [facility] [address] [place], [address] Anion gap [Moles/Vol] 11 mmol/L Normal 5-15 [facility] Comment on above: Performed By: #### L 501.5101, L3300.8000, L500.4100, L400.2011, L500.4050, L100.0100, L503.6550, L505.5000, L506.1000, L503.6150, L502.0500, L101.9900, L501.9520, L503.0105, L501.5200 #### [facility] [address] [place], [place], [id number] AST [Catalytic activity/Vol] 93 U/L High <=37 [facility] Comment on above: Performed By: #### L 501.5101, L3300.8000, L500.4100, L400.2011, L500.4050, L100.0100, L503.6550, L505.5000, L506.1000, L503.6150, L502.0500, L101.9900, L501.9520, L503.0105, L501.5200 #### [facility] [address] [place], [address] Bilirubin [Mass/Vol] 1.03 mg/dL Normal 0.00-1.30 [facility] Comment on above: Performed By: #### L 501.5101, L3300.8000, L500.4100, L400.2011, L500.4050, L100.0100, L503.6550, L505.5000, L506.1000, L503.6150, L502.0500, L101.9900, L501.9520, L503.0105, L501.5200 #### [facility] [address] [place], [address] BUN/CRE 13.7 RATIO Normal 10-20 [facility] Comment on above: Performed By: #### L 501.5101, L3300.8000, L500.4100, L400.2011, L500.4050, L100.0100, L503.6550, L505.5000, L506.1000, L503.6150, L502.0500, L101.9900, L501.9520, L503.0105, L501.5200 #### [facility] [address] [place], [address] Calcium [Mass/Vol] 9.2 mg/dL Normal 7.6-11.0 [facility] Comment on above: Performed By: #### L 501.5101, L3300.8000, L500.4100, L400.2011, L500.4050, L100.0100, L503.6550, L505.5000, L506.1000, L503.6150, L502.0500, L101.9900, L501.9520, L503.0105, L501.5200 #### [facility] [address] [place], [address] Chloride [Moles/Vol] 92 mmol/L Low 96-108 [facility] Comment on above: Performed By: #### L 501.5101, L3300.8000, L500.4100, L400.2011, L500.4050, L100.0100, L503.6550, L505.5000, L506.1000, L503.6150, L502.0500, L101.9900, L501.9520, L503.0105, L501.5200 #### [facility] [address] [place], [place], [phone] (284) CO2 [Moles/Vol] 24.5 mmol/L Normal 22.0-29.0 [facility] Comment on above: Performed By: #### L 501.5101, L3300.8000, L500.4100, L400.2011, L500.4050, L100.0100, L503.6550, L505.5000, L506.1000, L503.6150, L502.0500, L101.9900, L501.9520, L503.0105, L501.5200 #### [facility] [address] [place], [place], [phone] Creatinine [Mass/Vol] 1.01 mg/dL Normal 0.70-1.20 [facility] Comment on above: Performed By: #### L 501.5101, L3300.8000, L500.4100, L400.2011, L500.4050, L100.0100, L503.6550, L505.5000, L506.1000, L503.6150, L502.0500, L101.9900, L501.9520, L503.0105, L501.5200 #### [facility] [address] [place], [place], [id number] GFR/1.73 sq M.predicted among non-blacks MDRD (S/P/Bld) [Vol rate/Area] 92 mL/min/{1.73_m2} Normal >60 [facility] Comment on above: Result Comment: mL/m in/1.73m2 CKD-EPI Creatinine Equation (2020) Performed By: #### L 501.5101, L3300.8000, L500.4100, L400.2011, L500.4050, L100.0100, L503.6550, L505.5000, L506.1000, L503.6150, L502.0500, L101.9900, L501.9520, L503.0105, L501.5200 #### [facility] [address] [place], [address] Globulin (S) [Mass/Vol] 4.0 g/dL Normal 2.2-4.2 [facility] Comment on above: Performed By: #### L 501.5101, L3300.8000, L500.4100, L400.2011, L500.4050, L100.0100, L503.6550, L505.5000, L506.1000, L503.6150, L502.0500, L101.9900, L501.9520, L503.0105, L501.5200 #### [facility] [address] [place], [address] Glucose [Mass/Vol] 101 mg/dL High 70-99 [facility] Comment on above: Performed By: #### L 501.5101, L3300.8000, L500.4100, L400.2011, L500.4050, L100.0100, L503.6550, L505.5000, L506.1000, L503.6150, L502.0500, L101.9900, L501.9520, L503.0105, L501.5200 #### [facility] [address] [place], [address] Potassium [Moles/Vol] 3.9 mmol/L Normal 3.3-5.1 [facility] Comment on above: Performed By: #### L 501.5101, L3300.8000, L500.4100, L400.2011, L500.4050, L100.0100, L503.6550, L505.5000, L506.1000, L503.6150, L502.0500, L101.9900, L501.9520, L503.0105, L501.5200 #### [facility] [address] [place], [address] Sodium [Moles/Vol] 128 mmol/L Low 133-145 [facility] Comment on above: Performed By: #### L 501.5101, L3300.8000, L500.4100, L400.2011, L500.4050, L100.0100, L503.6550, L505.5000, L506.1000, L503.6150, L502.0500, L101.9900, L501.9520, L503.0105, L501.5200 #### [facility] [address] [facility] [address] [place], [place], [id number] (632) T PROT 7.8 g/dL Normal 5.9-8.4 [facility] Comment on above: Performed By: #### L 501.5101, L3300.8000, L500.4100, L400.2011, L500.4050, L100.0100, L503.6550, L505.5000, L506.1000, L503.6150, L502.0500, L101.9900, L501.9520, L503.0105, L501.5200 #### [facility] [address] [place], [place], [phone] (834) Urea nitrogen [Mass/Vol] 14 mg/dL Normal 4-19 [facility] Comment on above: Performed By: #### L 501.5101, L3300.8000, L500.4100, L400.2011, L500.4050, L100.0100, L503.6550, L505.5000, L506.1000, L503.6150, L502.0500, L101.9900, L501.9520, L503.0105, L501.5200 #### [facility] [address] [place], [address] Endomysial IgA antibody assa yOrdered By: Michael Santana on 10-16-2024 Endomysial IgA Antibody Negative Negative [facility] Ethanol [Mass/Vol]Ordered By : Michael Santana on 10-16-2024 Ethyl Alcohol Level < 10.1 mg/dL <10.1 [facility] Comment on above: This test is for med ical purposes only. The legal definition of intoxication varies according to local law. GFR/1.73 sq M.predicted devin g non-blacks MDRD (S/P/Bld) [Vol rate/Area]Ordered By: Michael Santana on 10-16-2024 Estimated GFR (MDRD) Non-Af Amer 92 >60 [facility] Comment on above: mL/min/1.73m2 CKD-EP I Creatinine Equation (2020) Glomerular filtration rate ( GFR) estimation/1.73 sq m using serum, plasma, or whole bOrdered By: Michael Santana on 10-16-2024 GFR/1.73 sq M.predicted among non-blacks MDRD (S/P/Bld) [Vol rate/Area] 92 mL/min/{1.73_m2} >60 [facility] Comment on above: mL/min/1.73m2 CKD-EP I Creatinine Equation (2020) HBV surface Ag IA QlOrdered By: Michael Santana on 10-16-2024 Hepatitis B Surface Antigen Negative Negative [facility] Hepatitis A virus IgM antibo dy assayOrdered By: Michael Santana on 10-16-2024 Hepatitis A IgM Antibody Negative Negative [facility] Comment on above: A negative anti-HAV IgM result suggests no recent orcurrent HAV infection. Hepatitis B virus core IgM a ntibody assayOrdered By: Michael Santaan on 10-16-2024 Hepatitis B Core IgM Antibody Negative Negative [facility] Hepatitis C virus antibody a ssayOrdered By: Michael Santana on 10-16-2024 Hepatitis C Antibody (EIA) Non-Reactive N on Reactive [facility] IgA [Mass/Vol]Ordered By: Kolton Santana on 10-16-2024 Immunoglobulin A 451 mg/dL High 90-386 [facility] - Chemistry and C hemistry - challengeOrdered By: Michael Santana on 10-16-2024 AST [Catalytic activity/Vol] 93 U/L High <38 [facility] No Panel InformationOrdered By: Michael Santana on 10-16-2024 Hepatitis C Antibody Comment Comment . [facility] Comment on above: Not infected with HC V unless early or acute infection issuspected (which may be delayed in an immunocompromisedindividual), or other evidence exists to indicate HCVinfection.Performed at: [facility] [id number] Director: Pablito Rubalcava PhD, Phone: [phone] Osmolality, Serumon 10-17-19 25 OSMOLALITY,SER 268 mOsm/KG Low 275-295 [facility] Comment on above: Performed By: #### L 501.5101, L3300.8000, L500.4100, L400.2011, L500.4050, L100.0100, L503.6550, L505.5000, L506.1000, L503.6150, L502.0500, L101.9900, L501.9520, L503.0105, L501.5200 #### [facility] [address] [place], [place], [address] Osmolality, serumOrdered By: Michael Santana on 10-16-2024 Serum Osmolality 268 mOsm/KG Low 275-295 [facility] Serum creatinine measurement (mass/volume)Ordered By: Michael Santana on 10-16-2024 Creatinine [Mass/Vol] 1.01 mg/dL 0.70-1.20 [facility] Serum globulin measurementOr dered By: Michael Santana on 10-16-2024 Globulin (S) [Mass/Vol] 4.0 g/dL 2.2-4.2 [facility] Serum glucose measurement (m ass/volume)Ordered By: Michael Santana on 10-16-2024 Glucose [Mass/Vol] 101 mg/dL High 70-99 [facility] Serum or plasma IgA measurem ent (mass/volume)Ordered By: Michael Santana on 10-16-2024 IgA [Mass/Vol] 451 mg/dL High 90-386 [facility] Serum or plasma alanine bruno otransferase (ALT) measurementOrdered By: Michael Santana on 10-16-2024 ALT [Catalytic activity/Vol] 94 U/L High <47 [facility] Serum or plasma albumin carlos urement (mass/volume)Ordered By: Michael Santana on 10-16-2024 Albumin [Mass/Vol] 3.8 g/dL 3.5-5.0 [facility] Serum or plasma albumin/glob ulin mass ratioOrdered By: Michael Santana on 10-16-2024 Albumin/Globulin [Mass ratio] 1.0 {ratio} 0.9-2.4 [facility] Serum or plasma alkaline ann sphatase measurementOrdered By: Michael Santana on 10-16-2024 ALP [Catalytic activity/Vol] 68 U/L 40-129 [facility] Serum or plasma anion gap de termination (moles/volume)Ordered By: Michael Santana on 10-16-2024 Anion gap [Moles/Vol] 11 mmol/L 5-15 [facility] Serum or plasma calcium carlos urement (mass/volume)Ordered By: Michael Santana on 10-16-2024 Calcium [Mass/Vol] 9.2 mg/dL 7.6-11.0 [facility] Serum or plasma ethanol carols urement (mass/volume)Ordered By: Michael Santana on 10-16-2024 Ethanol [Mass/Vol] mg/dL <10.1 [facility] Comment on above: This test is for med ical purposes only. The legal definition of intoxication varies according to local law. Serum or plasma hepatitis B virus surface antigen detection by immunoassayOrdered By: Michael Santana on 10-16-2024 HBV surface Ag IA Ql Negative Negative [facility] Serum or plasma potassium me asurementOrdered By: Michael Santana on 10-16-2024 Potassium [Moles/Vol] 3.9 mmol/L 3.3-5.1 [facility] Serum or plasma sodium measu rement (moles/volume)Ordered By: Michael Santana on 10-16-2024 Sodium [Moles/Vol] 128 mmol/L Low 133-145 [facility] Serum or plasma urea nitroge n measurement (mass/volume)Ordered By: Michael Santana on 10-16-2024 Urea nitrogen [Mass/Vol] 14 mg/dL 4-19 [facility] Serum tissue transglutaminas e (tTG) IgA antibody assay (units/volume)Ordered By: Michael Santana on 10-16-2024 tTG IgA Qn (S) <2 U/mL 0-3 [facility] Comment on above: Negative 0 - 3 Weak Positive 4 - 10 Positive >10 Tissue Transglutaminase (tTG) has been identified as the endomysial antigen. Studies have demonstr- ated that endomysial IgA antibodies have over 99% specificity for gluten sensitive enteropathy. Total proteinOrdered By: Sangeeta Santana on 10-16-2024 Protein [Mass/Vol] 7.8 g/dL 5.9-8.4 [facility] Venous blood ammonia measure mentOrdered By: Michael Santana on 10-16-2024 Ammonia (P) [Moles/Vol] 24.7 umol/L 16-60 [facility] tTG IgA Qn (S)Ordered By: Kolton Santana on 10-16-2024 Tissue Transglutaminase IgA Ab <2 U/mL 0-3 [facility] Comment on above: Negative 0 - 3 Weak Positive 4 - 10 Positive >10 Tissue Transglutaminase (tTG) has been identified as the endomysial antigen. Studies have demonstr- ated that endomysial IgA antibodies have over 99% specificity for gluten sensitive enteropathy. L501.5101on 10-12-2024 GGTP 424 IU/L Abnormal 0-65 [facility] Comment on above: Order Comment: UNK Result Comment: Perf ormed at: - [address] [id number] Handstitching Machine Armhole Feller: Felicia Garcia MD, Phone: [phone] Performed at: [facility] [address] [id number] Handstitching Machine Armhole Feller: Pablito Rubalcava PhD, Phone: [phone] Performed By: #### L 501.5101, L3300.8000, L500.4100, L400.2011, L500.4050, L100.0100, L503.6550, L505.5000, L506.1000, L503.6150, L502.0500, L101.9900, L501.9520, L503.0105, L501.5200 #### [facility] [address] [place], [place], [address] Vitamin B1, Thiamineon 10-12 VIT B1 THIAMINE 68.5 nmol/L Normal 66.5-200.0 [facility] Comment on above: Order Comment: UNK Performed By: #### L 501.5101, L3300.8000, L500.4100, L400.2011, L500.4050, L100.0100, L503.6550, L505.5000, L506.1000, L503.6150, L502.0500, L101.9900, L501.9520, L503.0105, L501.5200 #### [facility] [address] [place], [place], [address] Colonoscopy Reporton 025 Colonoscopy Report [facility] Medical Records Department [address] [place] [address] Colonoscopy Report MR#: [id number] Acct: [id number] Name: RJ JOHNSON II Rep #: [id number] : 1975 48 From: Paddy Lanza MD PCP: Dr. Michael Santana MD Status:[facility] Patient Name: Rj Johnson Procedure Date: 10/10/2024 [...] for surveillance. Procedure Code(s): --- Professional --- 21769, 33, Colonoscopy, flexible; with removal of tumor(s), polyp(s), or other lesion(s) by snare technique Diagnosis Code(s): --- Professional --- Z12.11, Encounter for screening for malignant neoplasm of colon D12.8, Benign neoplasm of rectum CPT copyright 2021 [employer]. All rights reserved. The codes documented in this report are preliminary and upon date night sitter review may be revised to meet current compliance requirements. Paddy Lanza MD 10/10/2024 10:19:35 AM This report has been signed electronically. Number of Addenda: 0 Note Initiated On: 10/10/2024 9:00 AM 10/10/24 1019 Date Paddy Garcia Signature: Date (if indicated) CC: Dr. Paddy Lanza MD; Dr. Michael Santana MD Date Dictated: 10/10/24 0900 Date Transcribed: Creping Machine Operator: JORDYN Vergara [facility] MR/POSTOP.[facility] 10-10-2024 MR/POSTOP.[facility] Medical Records Department [address] [facility] [place] [address] Anesthesia Postop Eval I 10/10/24 1024 MR#: [id number] Acct: [id number] Name: ERNESTORJ II Rep #: [id number] : 1975 48 From: Brandon Bess PCP: Dr. Michael Santana MD Status:[facility] Race: C Location: [place] [address] Anesthesia: Postop Eval I Current Vital Signs [...] Date Brandon Garcia Signature: Date CC: Signed [facility] MR/RGUXTYPJ8br 10-10-2024 MR/POSTOPAN2 [facility] Medical Records Department [address] [place] [address] Anesthesia Postop Eval II 10/10/241832 MR#: [id number] Acct: [id number] Name: RJ JOHNSON II Rep #: [id number] : 1975 48 From: Obed Ramsay MD PCP: Dr. Michael Santana MD Status:[facility] Race: C Location: EN Anesthesia Postop [...] improved in PACU. Complications Anesthesia Complication: No 10/10/241833 Date Obed Ramsay MD Cosigner Signature: Date CC: Signed Normal [facility] Surgery Specimen Level Karolyn 10-10-2024 Surgery Specimen Level IV -------- ---- Patient Age/Sex Location Account Attending Physician ---- RJ JOHNSON II 48/M EN [id number] Dr. Paddy Lanza MD ---- Specimen: [id number] Received: 10/10/24 Status: RODRIGO Freeman Num: [id number] Spec Type: COLON BX Subm Dr: Dr. Paddy Lanza MD HEADER OPERATION: Colonoscopy, polypectomy PRE-OP DIAGNOSIS: Encounter for screening for malignant neoplasm of colon TISSUE SUBMITTED: Rectal polyp ---- MICROSCOPIC DIAGNOSIS Rectal polyp, polypectomy: Tubular adenoma. SJ.mr 10/11/2024 MICROSCOPIC DESCRIPTION Slides are reviewed. GROSS DESCRIPTION Received in fixative is one container labeled with the patient's name and designated Rectal polyp. The specimen consists of a pink-red polyp measuring 1.5 x 1.5 x 1 cm. The presumed base is inked. The polyp is serially sectioned and submitted entirely in one cassette. VENKATESH.mr 10/10/2024 TC:1 CPT:55200 ---- Patient Age/Sex Location Account Attending Physician ---- RJ JOHNSON II 48/M EN [id number] Dr. Paddy Lanza MD ---- Signed (signature on file) Dr. Ignacio Torres MD 10/11/24 1145 ---- Normal [facility] Comment on above: Performed By: #### L 501.5101, L3300.8000, L500.4100, L400.2011, L500.4050, L100.0100, L503.6550, L505.5000, L506.1000, L503.6150, L502.0500, L101.9900, L501.9520, L503.0105, L501.5200 #### [facility] [address] [place], [address] Ironon 10-07-2024 Iron [Mass/Vol] 107 ug/dL Normal 65-175 [facility] Comment on above: Order Comment: UNK Performed By: #### L 501.5101, L3300.8000, L500.4100, L400.2011, L500.4050, L100.0100, L503.6550, L505.5000, L506.1000, L503.6150, L502.0500, L101.9900, L501.9520, L503.0105, L501.5200 #### [facility] [address] [place], [address] Magnesiumon 10-07-2024 Magnesium [Mass/Vol] 2.9 mg/dL High 1.6-2.6 [facility] Comment on above: Order Comment: UNK Performed By: #### L 501.5101, L3300.8000, L500.4100, L400.2011, L500.4050, L100.0100, L503.6550, L505.5000, L506.1000, L503.6150, L502.0500, L101.9900, L501.9520, L503.0105, L501.5200 #### [facility] [address] [place], [address] Urinalysis, Routine (Dipstic k)on 10-07-2024 BILIRUBIN URINE Normal Negative [facility] Comment on above: Order Comment: UNK Result Comment: URIN E NOT IF TUBES, TOO OLD TO RUN Performed By: #### L 501.5101, L3300.8000, L500.4100, L400.2011, L500.4050, L100.0100, L503.6550, L505.5000, L506.1000, L503.6150, L502.0500, L101.9900, L501.9520, L503.0105, L501.5200 #### [facility] [address] [place], [place], [phone] Clarity (U) Normal Clear [facility] Comment on above: Order Comment: UNK Result Comment: URIN E NOT IF TUBES, TOO OLD TO RUN Performed By: #### L 501.5101, L3300.8000, L500.4100, L400.2011, L500.4050, L100.0100, L503.6550, L505.5000, L506.1000, L503.6150, L502.0500, L101.9900, L501.9520, L503.0105, L501.5200 #### [facility] [address] [place], [place], [phone] Color (U) Normal Yellow [facility] Comment on above: Order Comment: UNK Result Comment: URIN E NOT IF TUBES, TOO OLD TO RUN Performed By: #### L 501.5101, L3300.8000, L500.4100, L400.2011, L500.4050, L100.0100, L503.6550, L505.5000, L506.1000, L503.6150, L502.0500, L101.9900, L501.9520, L503.0105, L501.5200 #### [facility] [address] [place], [place], [id number] GLUCOSE, UR Normal Normal [facility] Comment on above: Order Comment: UNK Result Comment: URIN E NOT IF TUBES, TOO OLD TO RUN Performed By: #### L 501.5101, L3300.8000, L500.4100, L400.2011, L500.4050, L100.0100, L503.6550, L505.5000, L506.1000, L503.6150, L502.0500, L101.9900, L501.9520, L503.0105, L501.5200 #### [facility] [address] [place], [place], [phone] KETONE UR Normal Negative [facility] Comment on above: Order Comment: UNK Result Comment: URIN E NOT IF TUBES, TOO OLD TO RUN Performed By: #### L 501.5101, L3300.8000, L500.4100, L400.2011, L500.4050, L100.0100, L503.6550, L505.5000, L506.1000, L503.6150, L502.0500, L101.9900, L501.9520, L503.0105, L501.5200 #### [facility] [address] [place], [place], [phone] LEUK ESTERASE Normal Negative [facility] Comment on above: Order Comment: UNK Result Comment: URIN E NOT IF TUBES, TOO OLD TO RUN Performed By: #### L 501.5101, L3300.8000, L500.4100, L400.2011, L500.4050, L100.0100, L503.6550, L505.5000, L506.1000, L503.6150, L502.0500, L101.9900, L501.9520, L503.0105, L501.5200 #### [facility] [address] [place], [place], [phone] Nitrite Ql (U) Normal Negative [facility] Comment on above: Order Comment: UNK Result Comment: URIN E NOT IF TUBES, TOO OLD TO RUN Performed By: #### L 501.5101, L3300.8000, L500.4100, L400.2010, L500.4050, L100.0100, L503.6550, L505.5000, L506.1000, L503.6150, L502.0500, L101.9900, L501.9520, L503.0105, L501.5200 #### [facility] [address] [place], [place], [phone] OCCULT BLOOD-UR Normal Negative [facility] Comment on above: Order Comment: UNK Result Comment: URIN E NOT IF TUBES, TOO OLD TO RUN Performed By: #### L 501.5101, L3300.8000, L500.4100, L400.2011, L500.4050, L100.0100, L503.6550, L505.5000, L506.1000, L503.6150, L502.0500, L101.9900, L501.9520, L503.0105, L501.5200 #### [facility] [address] [place], [address] pH UR Normal 5.0 - 8.0 [facility] Comment on above: Order Comment: UNK Result Comment: URIN E NOT IF TUBES, TOO OLD TO RUN Performed By: #### L 501.5101, L3300.8000, L500.4100, L400.2011, L500.4050, L100.0100, L503.6550, L505.5000, L506.1000, L503.6150, L502.0500, L101.9900, L501.9520, L503.0105, L501.5200 #### [facility] [address] [place], [place], [phone] PROT DIPSTX Normal Negative [facility] Comment on above: Order Comment: UNK Result Comment: URIN E NOT IF TUBES, TOO OLD TO RUN Performed By: #### L 501.5101, L3300.8000, L500.4100, L400.2011, L500.4050, L100.0100, L503.6550, L505.5000, L506.1000, L503.6150, L502.0500, L101.9900, L501.9520, L503.0105, L501.5200 #### [facility] [address], [address] SP.GR. DIPSTX Normal 1.002-1.03 0 [facility] Comment on above: Order Comment: UNK Result Comment: URIN E NOT IF TUBES, TOO OLD TO RUN Performed By: #### L 501.5101, L3300.8000, L500.4100, L400.2011, L500.4050, L100.0100, L503.6550, L505.5000, L506.1000, L503.6150, L502.0500, L101.9900, L501.9520, L503.0105, L501.5200 #### [facility] [address] [place], [address] UR Preservative Normal [facility] Comment on above: Order Comment: UNK Result Comment: URIN E NOT IF TUBES, TOO OLD TO RUN Performed By: #### L 501.5101, L3300.8000, L500.4100, L400.2011, L500.4050, L100.0100, L503.6550, L505.5000, L506.1000, L503.6150, L502.0500, L101.9900, L501.9520, L503.0105, L501.5200 #### [facility] [address] [place], [address] UROBILI Normal Normal [facility] Comment on above: Order Comment: UNK Result Comment: URIN E NOT IF TUBES, TOO OLD TO RUN Performed By: #### L 501.5101, L3300.8000, L500.4100, L400.2011, L500.4050, L100.0100, L503.6550, L505.5000, L506.1000, L503.6150, L502.0500, L101.9900, L501.9520, L503.0105, L501.5200 #### [facility] [place], [address] 32-RL-Ftdqqvu DOrdered By: Jhoan Schrader on 10-06-2024 Vitamin D 25-Hydroxy 8.0 ng/mL [facility] Comment on above: Vitamin D 25(OH) Sta tus Range Deficiency <20 ng/mL (50nmol/L) Insufficiency 20 - 30 ng/mL (50 - 75 nmol/L) Sufficiency 30 - 100 ng/mL (75 - 250 nmol/L) Toxicity >100 ng/mL (>250 nmol/L) Absolute lymphocyte countOrd ered By: Liudmila Schrader on 10-06-2024 Lymphocytes Auto (Unsp spec) [#/Vol] 0.80 10*3/uL Low 0.83-4.51 [facility] Absolute neutrophil countOrd ered By: Liudmila Schrader on 10-06-2024 Neutrophils (Bld) [#/Vol] 3.2 10*3/uL 2.0-7.7 [facility] Albumin to globulin ratioOrd ered By: Liudmila Schrader on 10-06-2024 Albumin/Globulin [Mass ratio] 0.7 {ratio} Low 0.9-2.4 [facility] Automated lymphocyte count a s percentage of total leukocytesOrdered By: Liudmila Schrader on 10-06-2024 Lymphocytes/100 WBC Auto (Unsp spec) 16.9 % Low 19-41 [facility] Basophil percentageOrdered B y: Liudmila Schrader on 10-06-2024 Basophils/100 WBC (Bld) 1.1 % High 0-1 [facility] Bilirubin, totalOrdered By: Liudmila Schrader on 10-06-2024 Bilirubin [Mass/Vol] 0.60 mg/dL 0.20-1.00 [facility] Comment on above: For patients on eltr ombopag therapy, use of Dimension [place] TBIL is not recommended. Blood urea nitrogen (BUN)/cr eatinine ratioOrdered By: Liudmila Schrader on 10-06-2024 Urea nitrogen/Creatinine [Mass ratio] 11.4 mg/mg 10-20 [facility] CBC W/Diff, Automatedon 02-2 -2024 Absolute Lymph 0.80 X10 3/uL Low 0.83-4.51 [facility] Comment on above: Performed By: #### L 501.5101, L3300.8000, L500.4100, L400.2011, L500.4050, L100.0100, L503.6550, L505.5000, L506.1000, L503.6150, L502.0500, L101.9900, L501.9520, L503.0105, L501.5200 #### [facility] [address] [place], [address] Absolute Neut 3.2 X10 3/uL Normal 2.0-7.7 [facility] Comment on above: Performed By: #### L 501.5101, L3300.8000, L500.4100, L400.2010, L500.4050, L100.0100, L503.6550, L505.5000, L506.1000, L503.6150, L502.0500, L101.9900, L501.9520, L503.0105, L501.5200 #### [facility] [address] [place], [address] Basophils/100 WBC (Bld) 1.1 % High 0-1 [facility] Comment on above: Performed By: #### L 501.5101, L3300.8000, L500.4100, L400.2010, L500.4050, L100.0100, L503.6550, L505.5000, L506.1000, L503.6150, L502.0500, L101.9900, L501.9520, L503.0105, L501.5200 #### [facility] [address] [place], [address] Eosinophils/100 WBC (Bld) 0.6 % Normal 0-5 [facility] Comment on above: Performed By: #### L 501.5101, L3300.8000, L500.4100, L400.2011, L500.4050, L100.0100, L503.6550, L505.5000, L506.1000, L503.6150, L502.0500, L101.9900, L501.9520, L503.0105, L501.5200 #### [facility] [address] [place], [address] (574) Erythrocyte distribution width (RBC) [Ratio] 11.5 % Low 11.6-14.6 [facility] Comment on above: Performed By: #### L 501.5101, L3300.8000, L500.4100, L400.2011, L500.4050, L100.0100, L503.6550, L505.5000, L506.1000, L503.6150, L502.0500, L101.9900, L501.9520, L503.0105, L501.5200 #### [facility] [address] [place], [address] Hematocrit (Bld) [Volume fraction] 32.4 % Low 40-54 [facility] Comment on above: Performed By: #### L 501.5101, L3300.8000, L500.4100, L400.2011, L500.4050, L100.0100, L503.6550, L505.5000, L506.1000, L503.6150, L502.0500, L101.9900, L501.9520, L503.0105, L501.5200 #### [facility] [address] [place], [address] (275) Hemoglobin (Bld) [Mass/Vol] 11.5 g/dL Low 13.0-16. 5 [facility] Comment on above: Performed By: #### L 501.5101, L3300.8000, L500.4100, L400.2011, L500.4050, L100.0100, L503.6550, L505.5000, L506.1000, L503.6150, L502.0500, L101.9900, L501.9520, L503.0105, L501.5200 #### [facility] [address] [place], [address] IG% 0.400 Normal 0.0-0.9 [facility] Comment on above: Result Comment: IG% - Immature Granulocytes (promyelocytes, myelocytes and metamyelocytes) > 1% indicates that a LEFT SHIFT is Present. Performed By: #### L 501.5101, L3300.8000, L500.4100, L400.2011, L500.4050, L100.0100, L503.6550, L505.5000, L506.1000, L503.6150, L502.0500, L101.9900, L501.9520, L503.0105, L501.5200 #### [facility] [address] [place], [address] Lymphocytes/100 WBC (Bld) 16.9 % Low 19-41 [facility] Comment on above: Performed By: #### L 501.5101, L3300.8000, L500.4100, L400.2011, L500.4050, L100.0100, L503.6550, L505.5000, L506.1000, L503.6150, L502.0500, L101.9900, L501.9520, L503.0105, L501.5200 #### [facility] [address] [place], [address] MCH (RBC) [Entitic mass] 33.0 pg High 27.0-32.0 [facility] Comment on above: Performed By: #### L 501.5101, L3300.8000, L500.4100, L400.2011, L500.4050, L100.0100, L503.6550, L505.5000, L506.1000, L503.6150, L502.0500, L101.9900, L501.9520, L503.0105, L501.5200 #### [facility] [address] [place], [address] MCHC (RBC) [Mass/Vol] 35.5 g/dL Normal 32-36 [facility] Comment on above: Performed By: #### L 501.5101, L3300.8000, L500.4100, L400.2011, L500.4050, L100.0100, L503.6550, L505.5000, L506.1000, L503.6150, L502.0500, L101.9900, L501.9520, L503.0105, L501.5200 #### [facility] [address] [place], [address] MCV (RBC) [Entitic vol] 93.1 fL Normal 80-94 [facility] Comment on above: Performed By: #### L 501.5101, L3300.8000, L500.4100, L400.2011, L500.4050, L100.0100, L503.6550, L505.5000, L506.1000, L503.6150, L502.0500, L101.9900, L501.9520, L503.0105, L501.5200 #### [facility] [address] [place], [address] Monocytes/100 WBC (Bld) 13.1 % High 0-10 [facility] Comment on above: Performed By: #### L 501.5101, L3300.8000, L500.4100, L400.2011, L500.4050, L100.0100, L503.6550, L505.5000, L506.1000, L503.6150, L502.0500, L101.9900, L501.9520, L503.0105, L501.5200 #### [facility] [address] [place], [address] Neutrophils/100 WBC (Bld) 67.9 % Normal 47-70 [facility] Comment on above: Performed By: #### L 501.5101, L3300.8000, L500.4100, L400.2011, L500.4050, L100.0100, L503.6550, L505.5000, L506.1000, L503.6150, L502.0500, L101.9900, L501.9520, L503.0105, L501.5200 #### [facility] [address] [place], [address] Nucleated RBC (Bld) [#/Vol] 0 10*3/uL Normal 0-5 [facility] Comment on above: Performed By: #### L 501.5101, L3300.8000, L500.4100, L400.2011, L500.4050, L100.0100, L503.6550, L505.5000, L506.1000, L503.6150, L502.0500, L101.9900, L501.9520, L503.0105, L501.5200 #### [facility] [address] [place], [address] Platelet mean volume (Bld) [Entitic vol] 8.2 fL Normal 6.2-12.0 [facility] Comment on above: Performed By: #### L 501.5101, L3300.8000, L500.4100, L400.2011, L500.4050, L100.0100, L503.6550, L505.5000, L506.1000, L503.6150, L502.0500, L101.9900, L501.9520, L503.0105, L501.5200 #### [facility] [address] [place], [address] Platelets (Bld) [#/Vol] 192 10*3/uL Normal 150-450 [facility] Comment on above: Performed By: #### L 501.5101, L3300.8000, L500.4100, L400.2011, L500.4050, L100.0100, L503.6550, L505.5000, L506.1000, L503.6150, L502.0500, L101.9900, L501.9520, L503.0105, L501.5200 #### [facility] [address] [place], [address] RBC (Bld) [#/Vol] 3.48 10*6/uL Low 4.6-6.2 [facility] Comment on above: Performed By: #### L 501.5101, L3300.8000, L500.4100, L400.2011, L500.4050, L100.0100, L503.6550, L505.5000, L506.1000, L503.6150, L502.0500, L101.9900, L501.9520, L503.0105, L501.5200 #### [facility] [address] [place], [address] RDW SD 38.8 fl Normal 35.1-43.9 [facility] Comment on above: Performed By: #### L 501.5101, L3300.8000, L500.4100, L400.2011, L500.4050, L100.0100, L503.6550, L505.5000, L506.1000, L503.6150, L502.0500, L101.9900, L501.9520, L503.0105, L501.5200 #### [facility] [address] [place], [address] WBC (Bld) [#/Vol] 4.7 10*3/uL Normal 4.4-11.0 [facility] Comment on above: Performed By: #### L 501.5101, L3300.8000, L500.4100, L400.2011, L500.4050, L100.0100, L503.6550, L505.5000, L506.1000, L503.6150, L502.0500, L101.9900, L501.9520, L503.0105, L501.5200 #### [facility] [address] [place], [place], [phone] Carbon dioxide measurementOr dered By: Liudmila Schrader on 10-06-2024 CO2 [Moles/Vol] 24.0 mmol/L 21.0-32.0 [facility] Chloride measurementOrdered By: Liudmila Schrader on 10-06-2024 Chloride [Moles/Vol] 92 mmol/L Low 98-107 [facility] Comprehensive Metabolic Prof ilon 10-06-2024 Albumin [Mass/Vol] 3.5 g/dL Normal 3.2-5.0 [facility] Comment on above: Order Comment: Order Date: 09/03/24 Order Info: 2857-1 - PSA DR SCHRADER ORDERTe PSA DR MAX FREDERICK Performed By: #### L 501.5101, L3300.8000, L500.4100, L400.2010, L500.4050, L100.0100, L503.6550, L505.5000, L506.1000, L503.6150, L502.0500, L101.9900, L501.9520, L503.0105, L501.5200 #### [facility] [address] [place], [place], [id number] Albumin/Globulin [Mass ratio] 0.7 {ratio} Low 0.9-2.4 [facility] Comment on above: Order Comment: Order Date: 09/03/24 Order Info: 2857-1 - PSA DR SCHRADER ORDERTe PSA DR MAX FREDERICK Performed By: #### L 501.5101, L3300.8000, L500.4100, L400.2011, L500.4050, L100.0100, L503.6550, L505.5000, L506.1000, L503.6150, L502.0500, L101.9900, L501.9520, L503.0105, L501.5200 #### [facility] [address] [place], [place], [phone] ALK P 86 U/L Normal 45-117 [facility] Comment on above: Order Comment: Order Date: 09/03/24 Order Info: 2857-1 - PSA DR RACIEL FREDERICK PSA DR MAX FREDERICK Performed By: #### L 501.5101, L3300.8000, L500.4100, L400.2011, L500.4050, L100.0100, L503.6550, L505.5000, L506.1000, L503.6150, L502.0500, L101.9900, L501.9520, L503.0105, L501.5200 #### [facility] [address] [place], [place], [phone] ALT [Catalytic activity/Vol] 135 U/L High 16-61 [facility] Comment on above: Order Comment: Order Date: 09/03/24 Order Info: 2857-1 - PSA DR RACIEL FREDERICK PSA DR MAX FREDERICK Performed By: #### L 501.5101, L3300.8000, L500.4100, L400.2011, L500.4050, L100.0100, L503.6550, L505.5000, L506.1000, L503.6150, L502.0500, L101.9900, L501.9520, L503.0105, L501.5200 #### [facility] [address] [place], [place], [id number] AST [Catalytic activity/Vol] 179 U/L High 15-37 [facility] Comment on above: Order Comment: Order Date: 09/03/24 Order Info: 2857-1 - PSA DR RACIEL FREDERICK PSA DR MAX FREDERICK Performed By: #### L 501.5101, L3300.8000, L500.4100, L400.2011, L500.4050, L100.0100, L503.6550, L505.5000, L506.1000, L503.6150, L502.0500, L101.9900, L501.9520, L503.0105, L501.5200 #### [facility] [address] [place], [address] Bilirubin [Mass/Vol] 0.60 mg/dL Normal 0.20-1.00 [facility] Comment on above: Order Comment: Order Date: 09/03/24 Order Info: 2857-1 - PSA DR RACIEL FREDERICK PSA DR MAX FREDERICK Result Comment: For patients on eltrombopag therapy, use of Dimension [place] TBIL is not recommended. Performed By: #### L 501.5101, L3300.8000, L500.4100, L400.2011, L500.4050, L100.0100, L503.6550, L505.5000, L506.1000, L503.6150, L502.0500, L101.9900, L501.9520, L503.0105, L501.5200 #### [facility] [address] [place], [address] BUN/CRE 11.4 RATIO Normal 10-20 [facility] Comment on above: Order Comment: Order Date: 09/03/24 Order Info: 2857-1 - PSA DR RACIEL FREDERICK PSA DR MAX FREDERICK Performed By: #### L 501.5101, L3300.8000, L500.4100, L400.2011, L500.4050, L100.0100, L503.6550, L505.5000, L506.1000, L503.6150, L502.0500, L101.9900, L501.9520, L503.0105, L501.5200 #### [facility] [address] [place], [address] CA,Total 9.4 mg/dL Normal 8.5-10.1 [facility] Comment on above: Order Comment: Order Date: 09/03/24 Order Info: 2857-1 - PSA DR RACIEL FREDERICK PSA DR MAX FREDERICK Performed By: #### L 501.5101, L3300.8000, L500.4100, L400.2011, L500.4050, L100.0100, L503.6550, L505.5000, L506.1000, L503.6150, L502.0500, L101.9900, L501.9520, L503.0105, L501.5200 #### [facility] [address] [place], [address] Chloride [Moles/Vol] 92 mmol/L Low 98-107 [facility] Comment on above: Order Comment: Order Date: 09/03/24 Order Info: 2857-1 - PSA DR SCHRADER ORDERTe PSA DR MAX FREDERICK Performed By: #### L 501.5101, L3300.8000, L500.4100, L400.2011, L500.4050, L100.0100, L503.6550, L505.5000, L506.1000, L503.6150, L502.0500, L101.9900, L501.9520, L503.0105, L501.5200 #### [facility] [address] [place], [address] CO2 [Moles/Vol] 24.0 mmol/L Normal 21.0-32.0 [facility] Comment on above: Order Comment: Order Date: 09/03/24 Order Info: 2857-1 - PSA DR SCHRADER ORDERTe PSA DR MAX FREDERICK Performed By: #### L 501.5101, L3300.8000, L500.4100, L400.2011, L500.4050, L100.0100, L503.6550, L505.5000, L506.1000, L503.6150, L502.0500, L101.9900, L501.9520, L503.0105, L501.5200 #### [facility] [address] [place], [address] Creatinine [Mass/Vol] 0.88 mg/dL Normal 0.70-1.30 [facility] Comment on above: Order Comment: Order Date: 09/03/24 Order Info: 2857- - PSA DR RACIEL FREDERICK PSA DR MAX FREDERICK Result Comment: The validity of the calculated GFR GFRAA in patients over 70 years has not been determined. Clinical correlation is essential. Performed By: #### L 501.5101, L3300.8000, L500.4100, L400.2011, L500.4050, L100.0100, L503.6550, L505.5000, L506.1000, L503.6150, L502.0500, L101.9900, L501.9520, L503.0105, L501.5200 #### [facility] [address] [place], [place], [id number] EST GFR - AA 119 mL/min Normal >60 [facility] Comment on above: Order Comment: Order Date: 09/03/24 Order Info: 2857- - PSA DR RACIEL FREDERICK PSA DR MAX FREDERICK Result Comment: Afri can [place]atorial [place] GFR Calc Performed By: #### L 501.5101, L3300.8000, L500.4100, L400.2011, L500.4050, L100.0100, L503.6550, L505.5000, L506.1000, L503.6150, L502.0500, L101.9900, L501.9520, L503.0105, L501.5200 #### [facility] [address] [place], [place], [id number] GAP 11 Normal 5-15 [facility] Comment on above: Order Comment: Order Date: 09/03/24 Order Info: 2857- - PSA DR RACIEL FREDERICK PSA DR MAX FREDERICK Performed By: #### L 501.5101, L3300.8000, L500.4100, L400.2011, L500.4050, L100.0100, L503.6550, L505.5000, L506.1000, L503.6150, L502.0500, L101.9900, L501.9520, L503.0105, L501.5200 #### [facility] [address] [place], [place], [address] GFR/1.73 sq M.predicted among non-blacks MDRD (S/P/Bld) [Vol rate/Area] 99 mL/min/{1.73_m2} Normal >60 [facility] Comment on above: Order Comment: Order Date: 09/03/24 Order Info: 2857- - PSA DR RACIEL FREDERICK PSA DR MAX FREDERICK Result Comment: Non- GFR Calc Performed By: #### L 501.5101, L3300.8000, L500.4100, L400.2011, L500.4050, L100.0100, L503.6550, L505.5000, L506.1000, L503.6150, L502.0500, L101.9900, L501.9520, L503.0105, L501.5200 #### [facility] [address] [place], [place], [phone] (195) Globulin (S) [Mass/Vol] 5.1 g/dL High 2.2-4.2 [facility] Comment on above: Order Comment: Order Date: 09/03/24 Order Info: 2857 - PSA DR RACIEL FREDERICK PSA DR MAX FREDERICK Performed By: #### L 501.5101, L3300.8000, L500.4100, L400.2011, L500.4050, L100.0100, L503.6550, L505.5000, L506.1000, L503.6150, L502.0500, L101.9900, L501.9520, L503.0105, L501.5200 #### [facility] [address] [place], [place], [address] (781) Glucose [Mass/Vol] 81 mg/dL Normal 74-106 [facility] Comment on above: Order Comment: Order Date: 09/03/24 Order Info: 2857-1 - PSA DR RACIEL FREDERICK PSA DR MAX FREDERICK Performed By: #### L 501.5101, L3300.8000, L500.4100, L400.2011, L500.4050, L100.0100, L503.6550, L505.5000, L506.1000, L503.6150, L502.0500, L101.9900, L501.9520, L503.0105, L501.5200 #### [facility] [address] [place], [address] Potassium [Moles/Vol] 5.0 mmol/L Normal 3.5-5.1 [facility] Comment on above: Order Comment: Order Date: 09/03/24 Order Info: 2857- - PSA DR RACIEL FREDERICK PSA DR MAX FREDERICK Performed By: #### L 501.5101, L3300.8000, L500.4100, L400.2011, L500.4050, L100.0100, L503.6550, L505.5000, L506.1000, L503.6150, L502.0500, L101.9900, L501.9520, L503.0105, L501.5200 #### [facility] [address] [place], [address] Sodium [Moles/Vol] 127 mmol/L Low 136-145 [facility] Comment on above: Order Comment: Order Date: 09/03/24 Order Info: 2857- - PSA DR RACIEL FREDERICK PSA DR MAX FREDERICK Performed By: #### L 501.5101, L3300.8000, L500.4100, L400.2010, L500.4050, L100.0100, L503.6550, L505.5000, L506.1000, L503.6150, L502.0500, L101.9900, L501.9520, L503.0105, L501.5200 #### [facility] [address] [place], [address] T PROT 8.6 g/dL High 6.4-8.2 [facility] Comment on above: Order Comment: Order Date: 09/03/24 Order Info: 2857-1 - PSA DR RACIEL FREDERICK PSA DR MAX FREDERICK Performed By: #### L 501.5101, L3300.8000, L500.4100, L400.2011, L500.4050, L100.0100, L503.6550, L505.5000, L506.1000, L503.6150, L502.0500, L101.9900, L501.9520, L503.0105, L501.5200 #### [facility] [address] [place], [place], [id number] Urea nitrogen [Mass/Vol] 10 mg/dL Normal 7-18 [facility] Comment on above: Order Comment: Order Date: 09/03/24 Order Info: 2857-1 - PSA DR RACIEL FREDERICK PSA DR MAX FREDERICK Performed By: #### L 501.5101, L3300.8000, L500.4100, L400.2011, L500.4050, L100.0100, L503.6550, L505.5000, L506.1000, L503.6150, L502.0500, L101.9900, L501.9520, L503.0105, L501.5200 #### [facility] [address], [address] Eosinophil percentageOrdered By: Liudmila Schrader on 10-06-2024 Eosinophils/100 WBC (Bld) 0.6 % 0-5 [facility] Erythrocyte Sed Rateon 10-06 SED RATE 15 mm/hr Normal 0-20 [facility] Comment on above: Performed By: #### L 501.5101, L3300.8000, L500.4100, L400.2011, L500.4050, L100.0100, L503.6550, L505.5000, L506.1000, L503.6150, L502.0500, L101.9900, L501.9520, L503.0105, L501.5200 #### [facility] [address] [place], [address] Erythrocyte distribution wid th ratioOrdered By: Liudmila Schrader on 10-06-2024 Erythrocyte distribution width (RBC) [Ratio] 11.5 % Low 11.6-14.6 [facility] Erythrocyte distribution wid th standard deviationOrdered By: Liudmila Schrader on 10-06-2024 Erythrocyte distribution width (RBC) [Entitic vol] 38.8 fL 35.1-43.9 [facility] Erythrocyte distribution width (RBC) [Ratio] 38.8 fl 35.1-43.9 [facility] Erythrocyte sedimentation ra teOrdered By: Liudmila Schrader on 10-06-2024 ESR (Bld) [Velocity] 15 mm/h 0-20 [facility] Estimated glomerular filtrat ion rate (GFR) AmericanOrdered By: Liudmila Schrader on 10-06-2024 Estimated GFR (MDRD) Amer 119 mL/min >60 [facility] Comment on above: GFR Calc Ferritinon 10-06-2024 Ferritin [Mass/Vol] 856 ng/mL High -388 [facility] Comment on above: Order Comment: UNK Performed By: #### L 501.5101, L3300.8000, L500.4100, L400.2011, L500.4050, L100.0100, L503.6550, L505.5000, L506.1000, L503.6150, L502.0500, L101.9900, L501.9520, L503.0105, L501.5200 #### [facility] [address] [place] [address], [address] Ferritin measurementOrdered By: Liudmila Schrader on 10-06-2024 Ferritin [Mass/Vol] 856 ng/mL High -388 [facility] Gamma glutamyl transferase ( GGT) measurementOrdered By: Liudmila Schrader on 10-06-2024 Amylase [Catalytic activity/Vol] 424 U/L High 0-65 [facility] Comment on above: Performed at: [facility] [address] [id number] Director: Felicia Garcia MD, Phone: [phone] at: [id number] [place], [place] [id number] Director: Pablito Rubalcava PhD, Phone: [phone] Glomerular filtration rate ( GFR) estimationOrdered By: Liudmila Schrader on 10-06-2024 Estimated GFR (MDRD) Non-Af Amer 99 mL/min >60 [facility] Comment on above: Non- GFR Calc GFR/1.73 sq M.predicted among non-blacks MDRD (S/P/Bld) [Vol rate/Area] 99 mL/min/{1.73_m2} >60 [facility] Comment on above: Non- GFR Calc Glucose measurementOrdered B y: Liudmila Schrader on 10-06-2024 Glucose [Mass/Vol] 81 mg/dL 74-106 [facility] Hematocrit Auto (Bld) [Volum e fraction]Ordered By: Liudmila Schrader on 10-06-2024 Hematocrit (Bld) [Volume fraction] 32.4 % Low 40-54 [facility] Hemoglobin measurementOrdere d By: Liudmila Schrader on 10-06-2024 Hemoglobin (Bld) [Mass/Vol] 11.5 g/dL Low 13.0-16. 5 [facility] High density lipoprotein (HD L) measurementOrdered By: Liudmila Schrader on 10-06-2024 Cholesterol in HDL [Mass/Vol] 93 mg/dL >40 [facility] Comment on above: The drugs N-Acetylcy steine and Metamizole may falsely depress this assay. Reference Range HDL <40 mg/dL Low HDL Cholesterol HDL >or= 60 mg/dL High HDL Cholesterol Immature granulocytes/100 WB C Auto (Bld)Ordered By: Liudmila Schrader on 10-06-2024 Immature granulocytes/100 WBC (Bld) 0.400 % 0.0-0.9 [facility] Comment on above: IG% - Immature Granu locytes (promyelocytes, myelocytes and metamyelocytes) > 1% indicates that a LEFT SHIFT is Present. Iron (Unsp spec) [Mass/Mass] Ordered By: Liudmila Schrader on 10-06-2024 Iron [Mass/Vol] 107 ug/dL 65-175 [facility] Iron measurement (mass/mass) Ordered By: Liudmila Schrader on 10-06-2024 Iron (Unsp spec) [Mass/Mass] 107 ug/dL 65-175 [facility] - Chemistry and C hemistry - challengeOrdered By: Liudmila Schrader on 10-06-2024 AST [Catalytic activity/Vol] 179 U/L High 15-37 [facility] Lipid Profileon 10-06-2024 Cholesterol [Mass/Vol] 210 mg/dL High 200 [facility] Comment on above: Order Comment: Order Date: 09/03/24 Order Info: 2857-1 - PSA DR SCHRADER ORDERTe PSA DR MAX FREDERICK Result Comment: <200 mg/dL Desirable 200-240 mg/dL Borderline >240 mg/dL High Risk Performed By: #### L 501.5101, L3300.8000, L500.4100, L400.2011, L500.4050, L100.0100, L503.6550, L505.5000, L506.1000, L503.6150, L502.0500, L101.9900, L501.9520, L503.0105, L501.5200 #### [facility] [address] [place], [place], [phone] (886) Cholesterol in HDL [Mass/Vol] 93 mg/dL Normal [facility] Comment on above: Order Comment: Order Date: 09/03/24 Order Info: 2857-1 - PSA DR SCHRADER ORDERTe PSA DR MAX FREDERICK Result Comment: The drugs N-Acetylcysteine and Metamizole may falsely depress this assay. Reference Range HDL <40 mg/dL Low HDL Cholesterol HDL >or= 60 mg/dL High HDL Cholesterol Performed By: #### L 501.5101, L3300.8000, L500.4100, L400.2011, L500.4050, L100.0100, L503.6550, L505.5000, L506.1000, L503.6150, L502.0500, L101.9900, L501.9520, L503.0105, L501.5200 #### [facility] [address] [place], [address] Cholesterol in LDL [Mass/Vol] 104 mg/dL Normal 0-130 [facility] Comment on above: Order Comment: Order Date: 09/03/24 Order Info: 2857-1 - PSA DR RACIEL FREDERICK PSA DR MAX FREDERICK Performed By: #### L 501.5101, L3300.8000, L500.4100, L400.2011, L500.4050, L100.0100, L503.6550, L505.5000, L506.1000, L503.6150, L502.0500, L101.9900, L501.9520, L503.0105, L501.5200 #### [facility] [address] [place], [address] Cholesterol in VLDL [Mass/Vol] 13 mg/dL Normal 5-40 [facility] Comment on above: Order Comment: Order Date: 09/03/24 Order Info: 2857-1 - PSA DR RACIEL FREDERICK PSA DR MAX FREDERICK Performed By: #### L 501.5101, L3300.8000, L500.4100, L400.2011, L500.4050, L100.0100, L503.6550, L505.5000, L506.1000, L503.6150, L502.0500, L101.9900, L501.9520, L503.0105, L501.5200 #### [facility] [address] [place], [address] Triglyceride [Mass/Vol] 66 mg/dL Normal [facility] Comment on above: Order Comment: Order Date: 09/03/24 Order Info: [id number] - PSA DR RACIEL FREDERICK PSA DR MAX FREDERICK Result Comment: The drugs N-Acetylcysteine and Metamizole may falsely depress this assay. Serum Triglycerides Reference Interval Normal <150 mg/dL Borderline high 150 - 199 mg/dL High 200 - 499 mg/dL Very High > or = 500 mg/dL Performed By: #### L 501.5101, L3300.8000, L500.4100, L400.2011, L500.4050, L100.0100, L503.6550, L505.5000, L506.1000, L503.6150, L502.0500, L101.9900, L501.9520, L503.0105, L501.5200 #### [facility] [place], [address] Low density lipoprotein (LDL ) cholesterol measurementOrdered By: Liudmila Schrader on 10-06-2024 Cholesterol in LDL [Mass/Vol] 104 mg/dL 0-130 [facility] Lymphocytes Auto (Unsp spec) [#/Vol]Ordered By: Liudmila Schrader on 10-06-2024 Lymphocytes (Bld) [#/Vol] 0.80 10*3/uL Low 0.83-4.5 1 [facility] Lymphocytes/100 WBC Auto (Un sp spec)Ordered By: Liudmila Schrader on 10-06-2024 Lymphocytes/100 WBC (Bld) 16.9 % Low 19-41 [facility] MCV (mean corpuscular volume ) determinationOrdered By: Liudmila Schrader on 10-06-2024 MCV (RBC) [Entitic vol] 93.1 fL 80-94 [facility] Magnesium measurementOrdered By: Liudmila Schrader on 10-06-2024 Magnesium [Mass/Vol] 2.9 mg/dL High 1.6-2.6 [facility] Mean corpuscular hemoglobin (MCH) determinationOrdered By: Liudmila Schrader on 10-06-2024 MCH (RBC) [Entitic mass] 33.0 pg High 27.0-32.0 [facility] Mean corpuscular hemoglobin concentration (MCHC) determinationOrdered By: Liudmila Schrader on 10-06-2024 MCHC (RBC) [Mass/Vol] 35.5 g/dL 32-36 [facility] Mean platelet volume determi nationOrdered By: Liudmila Schrader on 10-06-2024 Platelet mean volume (Bld) [Entitic vol] 8.2 fL 6.2-12.0 [facility] Methadone, urineOrdered By: Liudmila Schrader on 10-06-2024 Urine Methadone Screen Negative < 300 ng/mL [facility] Microalbumin,Random Urineon 10-06-2024 MICROALBUMIN,UR 152.0 mg/L Normal NO RANGE EST. [facility] Comment on above: Performed By: #### L 501.5101, L3300.8000, L500.4100, L400.2011, L500.4050, L100.0100, L503.6550, L505.5000, L506.1000, L503.6150, L502.0500, L101.9900, L501.9520, L503.0105, L501.5200 #### [facility] [address] [place], [address] Monocyte percentageOrdered B y: Liudmila Schrader on 10-06-2024 Monocytes/100 WBC (Bld) 13.1 % High 0-10 [facility] Neutrophil percentageOrdered By: Liudmila Schrader on 10-06-2024 Neutrophils/100 WBC (Bld) 67.9 % 47-70 [facility] No Panel InformationOrdered By: Liudmila Schrader on 10-06-2024 Urine Drug Screen Comment [facility] Comment on above: CONFIRMATORY TESTING FOR [...] RBC/100 WBC (Bld) [Ratio] 0 % 0-5 [facility] PSA,Total - Annual Screenon 10-06-2024 PSA,TOT SCREEN 1.28 ng/mL Normal 0.00-4.00 [facility] Comment on above: Order Comment: UNK Result Comment: This test was performed using the TPSA assay method for the [employer] system. Values obtained with different assay methods cannot be used interchangably. When changing PSA assays in the course of monitoring a patient, additional sequential testing should be carried out to confirm baseline values. Performed By: #### L 501.5101, L3300.8000, L500.4100, L400.2011, L500.4050, L100.0100, L503.6550, L505.5000, L506.1000, L503.6150, L502.0500, L101.9900, L501.9520, L503.0105, L501.5200 #### [facility] [address] [place], [address] Platelet countOrdered By: Aristides Schrader on 10-06-2024 Platelets (Bld) [#/Vol] 192 10*3/uL 150-450 [facility] Potassium measurementOrdered By: Liudmila Schrader on 10-06-2024 Potassium [Moles/Vol] 5.0 mmol/L 3.5-5.1 [facility] Quantitative urine opiates m easurementOrdered By: Liudmila Schrader on 10-06-2024 Opiates Ql (U) Negative < 300 ng/mL [facility] RBC Auto (Bld) [#/Vol]Ordere d By: Liudmila Schrader on 10-06-2024 RBC (Bld) [#/Vol] 3.48 10*6/uL Low 4.6-6.2 [facility] Random urine microalbumin me asurementOrdered By: Liudmila Schrader on 10-06-2024 Urine Random Microalbumin 152.0 mg/L NO RANGE EST. [facility] Screening prostate specific antigen (PSA) measurementOrdered By: Liudmila Schrader on 10-06-2024 Prostate Specific Antigen Screen 1.28 ng/mL 0.00-4.00 [facility] Comment on above: This test was perfor med using the TPSA assay method for the[facility] system. Values obtained with differentassay methods cannot be used interchangably.When changing PSA assays in the course of monitoring apatient, additional sequential testing should be carriedout to confirm baseline values. Serum anion gap measurementO rdered By: Liudmila Schrader on 10-06-2024 Anion gap [Moles/Vol] 11 mmol/L 5-15 [facility] Serum globulin measurementOr dered By: Liudmila Schrader on 10-06-2024 Globulin (S) [Mass/Vol] 5.1 g/dL High 2.2-4.2 [facility] Serum or plasma alanine bruno otransferase (ALT) measurementOrdered By: Liudmila Schrader on 10-06-2024 ALT [Catalytic activity/Vol] 135 U/L High 16-61 [facility] Serum or plasma albumin carlos urement (mass/volume)Ordered By: Liudmila Schrader on 10-06-2024 Albumin [Mass/Vol] 3.5 g/dL 3.2-5.0 [facility] Serum or plasma alkaline ann sphatase measurementOrdered By: Liudmila Schrader on 10-06-2024 ALP [Catalytic activity/Vol] 86 U/L 45-117 [facility] Serum or plasma calcium carlos urement (mass/volume)Ordered By: Liudmila Schrader on 10-06-2024 Calcium [Mass/Vol] 9.4 mg/dL 8.5-10.1 [facility] Serum or plasma cholesterol measurement (mass/volume)Ordered By: Liudmila Schrader on 10-06-2024 Cholesterol [Mass/Vol] 210 mg/dL High <200 [facility] Comment on above: <200 mg/dL Desirable 200-240 mg/dL Borderline >240 mg/dL High Risk Serum or plasma creatinine m easurement (mass/volume)Ordered By: Liudmila Schrader on 10-06-2024 Creatinine [Mass/Vol] 0.88 mg/dL 0.70-1.30 [facility] Comment on above: The validity of the calculated GFR & GFRAA in patients over 70 years has not been determined. Clinical correlation is essential. Serum or plasma thiamine keron surement (mass/volume)Ordered By: Liudmila Schrader on 10-06-2024 Thiamine [Mass/Vol] 68.5 nmol/L 66.5-200.0 [facility] Serum or plasma thyroid stim ulating hormone (TSH) measurement (units/volume)Ordered By: Liudmila Schrader on 10-06-2024 TSH Qn 1.330 uIU/mL 0.358-3.74 0 [facility] Serum or plasma urea nitroge n measurement (mass/volume)Ordered By: Liudmila Schrader on 10-06-2024 Urea nitrogen [Mass/Vol] 10 mg/dL 7-18 [facility] Sodium levelOrdered By: Liudmila Schrader on 10-06-2024 Sodium [Moles/Vol] 127 mmol/L Low 136-145 [facility] TSH QnOrdered By: Liudmila rueda on 10-06-2024 Thyroid Stimulating Hormone (TSH) 1.330 uIU/mL 0.358-3.74 0 [facility] Thiamine [Mass/Vol]Ordered B y: Liudmila Schrader on 10-06-2024 Whole Blood Vitamin B1 Level 68.5 nmol/L 66.5-2 00.0 [facility] Thyroid Stim Hormone (TSH)on 10-06-2024 TSH 1.330 uIU/mL Normal 0.358-3.74 0 [facility] Comment on above: Order Comment: Order Date: 09/03/24 Order Info: [id number] - PSA DR SCHRADER ORDERD PSA DR SANTANA ORDERD Performed By: #### L 501.5101, L3300.8000, L500.4100, L400.2011, L500.4050, L100.0100, L503.6550, L505.5000, L506.1000, L503.6150, L502.0500, L101.9900, L501.9520, L503.0105, L501.5200 #### [facility] [address] [place], [place], [id number] Total proteinOrdered By: Sophie Schrader on 10-06-2024 Protein [Mass/Vol] 8.6 g/dL High 6.4-8.2 [facility] Triglycerides measurementOrd ered By: Liudmila Schrader on 10-06-2024 Triglyceride [Mass/Vol] 66 mg/dL <199 [facility] Comment on above: The drugs N-Acetylcy steine and Metamizole may falsely depress this assay.Serum Triglycerides Reference Interval Normal <150 mg/dL Borderline high 150 - 199 mg/dL High 200 - 499 mg/dL Very High > or = 500 mg/dL Urine Drug Screen ([facility]IST[facility])on 10-06-2024 AMPHETAMINES Negative Normal <1000 ng/mL [facility] Comment on above: Order Comment: UNK Performed By: #### L 501.5101, L3300.8000, L500.4100, L400.2011, L500.4050, L100.0100, L503.6550, L505.5000, L506.1000, L503.6150, L502.0500, L101.9900, L501.9520, L503.0105, L501.5200 #### [facility] [address] [place], [place], [id number] BARBITIURATES Negative Normal < 200 ng/mL [facility] Comment on above: Order Comment: UNK Performed By: #### L 501.5101, L3300.8000, L500.4100, L400.2010, L500.4050, L100.0100, L503.6550, L505.5000, L506.1000, L503.6150, L502.0500, L101.9900, L501.9520, L503.0105, L501.5200 #### [facility] [address] [place], [address] BENZODIAZIPINE Negative Normal < 200 ng/mL [facility] Comment on above: Order Comment: UNK Performed By: #### L 501.5101, L3300.8000, L500.4100, L400.2010, L500.4050, L100.0100, L503.6550, L505.5000, L506.1000, L503.6150, L502.0500, L101.9900, L501.9520, L503.0105, L501.5200 #### [facility] [address] [place], [address] COCAINE Negative Normal < 300 ng/mL [facility] Comment on above: Order Comment: UNK Performed By: #### L 501.5101, L3300.8000, L500.4100, L400.2010, L500.4050, L100.0100, L503.6550, L505.5000, L506.1000, L503.6150, L502.0500, L101.9900, L501.9520, L503.0105, L501.5200 #### [facility] [address] [place], [place], [id number] ECSTACY Negative Normal < 500 ng/mL [facility] Comment on above: Order Comment: UNK Performed By: #### L 501.5101, L3300.8000, L500.4100, L400.2011, L500.4050, L100.0100, L503.6550, L505.5000, L506.1000, L503.6150, L502.0500, L101.9900, L501.9520, L503.0105, L501.5200 #### [facility] [place], [address] METHADONE Negative Normal < 300 ng/mL [facility] Comment on above: Order Comment: UNK Performed By: #### L 501.5101, L3300.8000, L500.4100, L400.2011, L500.4050, L100.0100, L503.6550, L505.5000, L506.1000, L503.6150, L502.0500, L101.9900, L501.9520, L503.0105, L501.5200 #### [facility] [place], [place], [id number] OPIATES Negative Normal < 300 ng/mL [facility] Comment on above: Order Comment: UNK Performed By: #### L 501.5101, L3300.8000, L500.4100, L400.2011, L500.4050, L100.0100, L503.6550, L505.5000, L506.1000, L503.6150, L502.0500, L101.9900, L501.9520, L503.0105, L501.5200 #### [facility] [address] [place], [place], [id number] PCP Negative Normal < 25 ng/mL [facility] Comment on above: Order Comment: UNK Performed By: #### L 501.5101, L3300.8000, L500.4100, L400.2011, L500.4050, L100.0100, L503.6550, L505.5000, L506.1000, L503.6150, L502.0500, L101.9900, L501.9520, L503.0105, L501.5200 #### [facility] [address] [place], [place], [id number] THC Negative Normal < 50 ng/mL [facility] Comment on above: Order Comment: UNK Performed By: #### L 501.5101, L3300.8000, L500.4100, L400.2011, L500.4050, L100.0100, L503.6550, L505.5000, L506.1000, L503.6150, L502.0500, L101.9900, L501.9520, L503.0105, L501.5200 #### [facility] [address] [place], [place], [id number] VIST[facility] UDS PH 5 Normal [facility] Comment on above: Order Comment: UNK Performed By: #### L 501.5101, L3300.8000, L500.4100, L400.2011, L500.4050, L100.0100, L503.6550, L505.5000, L506.1000, L503.6150, L502.0500, L101.9900, L501.9520, L503.0105, L501.5200 #### [facility] [address] [place], [place], [id number] Urine amphetamine measuremen tOrdered By: Liudmila Schrader on 10-06-2024 Amphetamines Ql (U) Negative <1000 ng/mL [facility] Urine barbiturates measureme ntOrdered By: Liudmila Schrader on 10-06-2024 Urine Barbiturates Screen Negative < 200 ng/mL [facility] Urine benzodiazepine levelOr dered By: Liudmila Schrader on 10-06-2024 Benzodiazepines Ql (U) Negative < 200 ng/mL [facility] Urine cocaine levelOrdered B y: Liudmila Schrader on 10-06-2024 Cocaine Ql (U) Negative < 300 ng/mL [facility] Urine ayblc-3-frinnkgvitdjmk abinol (THC) measurementOrdered By: Liudmila Schrader on 10-06-2024 Cannabinoids Screen Ql (U) Negative < 50 ng/m L [facility] Urine methylenedioxymethamph etamine (MDMA) measurementOrdered By: Liudmila Schrader on 10-06-2024 MDMA (Ecstasy) Screen Negative < 500 ng/mL [facility] Urine phencyclidine (PCP) de tectionOrdered By: Liudmila Schrader on 10-06-2024 Phencyclidine Ql (U) Negative < 25 ng/mL [facility] Very low density lipoprotein (VLDL) cholesterol measurementOrdered By: Liudmila Schrader on 10-06-2024 Very low density lipoprotein (VLDL) cholesterol measurement 13 mg/dL 5-40 [facility] VLDL Cholesterol 13 mg/dL 5-40 [facility] Vitamin B12 measurementOrder ed By: Liudmila Schrader on 10-06-2024 Cobalamin (Vitamin B12) [Mass/Vol] 207 pg/mL Low 211-911 [facility] Comment on above: Performed By: #### L 501.5101, L3300.8000, L500.4100, L400.2011, L500.4050, L100.0100, L503.6550, L505.5000, L506.1000, L503.6150, L502.0500, L101.9900, L501.9520, L503.0105, L501.5200 #### [facility] [address] [place], [address] Vitamin D,25 Hydroxyon 10-06 Vitamin D 25-OH 8.0 ng/mL Normal [facility] Comment on above: Result Comment: Roxanna min D 25(OH) Status Range Deficiency <20 ng/mL (50nmol/L) Insufficiency 20 - 30 ng/mL (50 - 75 nmol/L) Sufficiency 30 - 100 ng/mL (75 - 250 nmol/L) Toxicity >100 ng/mL (>250 nmol/L) Performed By: #### L 501.5101, L3300.8000, L500.4100, L400.2011, L500.4050, L100.0100, L503.6550, L505.5000, L506.1000, L503.6150, L502.0500, L101.9900, L501.9520, L503.0105, L501.5200 #### [facility] [address] [place], [place], [id number] White blood cell (WBC) count Ordered By: Liudmila Schrader on 10-06-2024 WBC (Bld) [#/Vol] 4.7 10*3/uL 4.4-11.0 [facility] Vital Signs Date Time Vital Sign Value Performing Clinician Faci lity 01-22-2025 13:34-0400 Body height 190.[address] Michael Santana MD Work Phone: [facility] 01-22-2025 13:34-0400 Body mass index (BMI) [Ratio] 27.6 kg/m2 Dr. Michael Santana MD Work Phone: [facility] 01-22-2025 13:34-0400 Body temperature 97.7 [degF] Dr. Michael Santana MD Work Phone: [facility] 01-22-2025 13:34-0400 Body weight 100.[address] Michael Santana MD Work Phone: [facility] 01-22-2025 13:34-0400 Diastolic blood pressure 68 mm[Hg] Dr. Michael Santana MD Work Phone: [facility] 01-22-2025 13:34-0400 Heart rate 111 /min Dr. Michael Santana MD Work Phone: [facility] 01-22-2025 13:34-0400 Respiratory rate 15 /min Dr. Michael Santana MD Work Phone: [facility] 01-22-2025 13:34-0400 SaO2% (BldA) [Mass fraction] 97 % Dr. Michael Santana MD Work Phone: [facility] 01-22-2025 13:34-0400 Systolic blood pressure 104 mm[Hg] Dr. Michael Santana MD Work Phone: [facility] 11-15-2024 10:56-0400 Body height 190.[address] Michael Santana MD Work Phone: 5([phone])547-720516 [place] [address] 11-15-2024 10:56-0400 Body mass index (BMI) [Ratio] 26.7 kg/m2 Dr. Michael Santana MD Work Phone: 6(782)280-270568 [address] 11-15-2024 10:56-0400 Body temperature 98.2 [degF] Dr. Michael Santana MD Work Phone: [facility] 11-15-2024 10:56-0400 Body weight 97.[address] Michael Santana MD Work Phone: [facility] 11-15-2024 10:56-0400 Diastolic blood pressure 74 mm[Hg] Dr. Michael Santana MD Work Phone: [facility] 11-15-2024 10:56-0400 Heart rate 110 /min Dr. Michael Santana MD Work Phone: [facility] 11-15-2024 10:56-0400 Respiratory rate 16 /min Dr. Michael Santana MD Work Phone: [facility] 11-15-2024 10:56-0400 SaO2% (BldA) [Mass fraction] 98 % Dr. Michael Santana MD Work Phone: [facility] 11-15-2024 10:56-0400 Systolic blood pressure 122 mm[Hg] Dr. Michael Santana MD Work Phone: [facility] 10-26-2024 08:09-0400 Body height 190.[address] Michael Santana MD Work Phone: 7(598)838-791304 [place] [address] 10-10-2024 10:35-0500 Body temperature 99.1 [degF] Dr. Michael Santana MD Work Phone: 3(929)575-589404 [place] [address] 10-10-2024 10:35-0500 Diastolic blood pressure 90 mm[Hg] Dr. Michael Santana MD Work Phone: 3(824)502-582104 [place] [address] 10-10-2024 10:35-0500 Heart rate 81 /min Dr. Michael Santana MD Work Phone: 7(621)023-938904 [place] [address] 10-10-2024 10:35-0500 Respiratory rate 18 /min Dr. Michael Santana MD Work Phone: 3(624)594-507804 [place] [address] 10-10-2024 10:35-0500 SaO2% (BldA) [Mass fraction] 95 % Dr. Michael Santana MD Work Phone: 4(767)601-087604 [place] [address] 10-10-2024 10:35-0500 Systolic blood pressure 128 mm[Hg] Dr. Michael Santana MD Work Phone: 1(090)043-586404 [place] [address] 10-10-2024 08:30-0500 Body height 190.[address] Michael Santana MD Work Phone: 1(271)120-815504 [place] [address] 10-10-2024 08:30-0500 Body mass index (BMI) [Ratio] 26.2 kg/m2 Dr. Michael Santana MD Work Phone: 9(831)559-477404 [place] [address] 10-10-2024 08:30-0500 Body weight [address] Michael Santana MD Work Phone: 3(909)676-836204 [place] [address] 08-01-2024 10:49-0500 Body mass index (BMI) [Ratio] 25.6 kg/m2 Dr. Michael Santana MD Work Phone: 5(020)995-119668 [address] 08-01-2024 10:49-0500 Body weight 92.[address] Michael Santana MD Work Phone: [facility] Encounters Encounter Date Encounter Type Care Provider Facility Start: 01-24-2025 End: 01-24-[address] Michael Santana MD Work Phone: [facility] Work Phone: Start: 01-24-2025 End: 01-24-[address] Wisam Cosby MD -Laboratory [facility] Start: 01-24-2025 End: 01-24-2025 [facility] Start: 01-22-2025 End: 01-22-[address] Wisam Cosby MD -[facility] Work Phone: Start: 01-22-2025 End: 01-22-[address] Michael Santana MD Work Phone: [facility] Work Phone: Start: 12-20-2024 ambulatory [facility] lit:[facility] Start: 12-20-[address] Wisam vasquez MD -Physical Therapy Work Phone: Start: 12-05-2024 ambulatory Michael Burr lity:[facility] Start: 12-05-2024 Non-patient / Non-visit Dr. Melissa Lema MD -[facility]- Start: 12-05-2024 End: 12-05-[address] Michael Santana MD Work Phone: [facility] Work Phone: Start: 12-05-2024 End: 12-05-[address] Wisam Cosby MD -Pulmonary Services/Neurology Work Phone: Start: 12-05-2024 End: 12-05-2024 ambulatory Michael Santana Facility:[facility] Start: 11-30-[address] Wisam vasquez MD -Physical Therapy Work Phone: Start: 11-15-2024 End: 11-15-[address] Wisam Cosby MD -[facility] Work Phone: Start: 11-15-2024 End: 11-15-2024 ambulatory Michael Santana Facility:[facility] Start: 11-01-2024 End: 11-01-[address] Michael Santana MD Work Phone: [facility] Work Phone: Start: 11-01-2024 End: 11-01-[address] Michael Santana MD -Ultrasound, [facility] Work Phone: Start: 11-01-2024 End: 11-01-2024 ambulatory [facility] Facility:[facility] Start: 10-26-2024 End: 10-26-[address] Shamar Fritz MD -[facility] Start: 10-26-2024 End: 10-26-2024 ambulatory [facility] Facility[facility] Start: 10-23-2024 End: 10-23-2024 ambulatory [facility] Facility:[facility] Start: 10-16-2024 End: 10-16-[address] Michael Santana MD Work Phone: [facility] Work Phone: Start: 10-16-2024 End: 10-16-[address] Michael Santana MD -Laboratory, [facility] Start: 10-16-2024 End: 10-16-2024 ambulatory [facility] Facility:[facility] Start: 10-10-2024 Non-patient / Non-visit Dr. Paddy Lanza MD -[facility] Start: 10-10-2024 End: 10-10-2024 Admission to same day surgery center Dr. Paddy Lanza MD -Endoscopy Work Phone: Start: 10-10-2024 End: 10-10-2024 ambulatory Paddy Lanza Facility:[facility] Start: 10-06-2024 End: 10-06-2024 Patient encounter procedure Liudmila Schrader CODING QUALITY ANALYST-C -Laboratory, [place] Work Phone: Start: 10-06-2024 End: 10-06-2024 ambulatory Michael Santana Facility:[facility] Start: 08-01-2024 Non-patient / Non-visit Dr. Michael Santana MD Work Phone: -[facility] Work Phone: Start: 08-01-2024 ambulatory [facility] Facility:[facility] Procedures Date Procedure Procedure Detail Performing Clinician Start: 01-24-2025 Folic acid measurement, RBC Dr. Michael Santana MD Work Phone: Start: 01-24-2025 Intrinsic factor ant ibody measurement Dr. Michael Santana MD Work Phone: Comment on above: Performed at: [address] [id number] Director: Pablito Rubalcava PhD, Phone: [phone] at: [facility] [id number] Director: Felicia Garcia MD, Phone: [phone] Start: 01-24-2025 Urine lambda light c silvestre measurement Dr. Michael Santana MD Work Phone: Start: 11-01-2024 Ultrasound elastogra phy of liver [...] med using the TPSA assay method for theAthersysiversity chemistry system. Values obtained with differentassay methods cannot be used interchangably.When changing PSA assays in the course of monitoring apatient, additional sequential testing should be carriedout to confirm baseline values. Plan of Treatment Date Care Activity Detail Author Start: 11-15-2024 Patient referral [facility] Work Phone: Start: 10-10-2024 Colsc flx w/rmvl of tumor polyp lesion snare tq COLONOSCOPY W/LESION REMOVAL [facility] Start: 10-10-2024 Patient discharge [facility] Comprehensive metabo lic 1999 panel - Serum or Plasma [facility] Folic acid measureme nt, RBC [facility] Hemoglobin A1c/Hemoglobin.total in Blood [facility] Intrinsic factor blo cking Ab [Units/volume] in Serum [facility] Magnesium measurement [facility] MR Lumbar spine [facility] Patient referral [facility] Work Phone: [facility] Payers Date Payer Category Payer Self-pay 2024 Unknown [id number] 1975 Unknown [id number] 2.16.[id number] [facility] [id number] Unknown [id number] 2.16.8 [id number] Unknown [id number] 2.16.8 [id number] Unknown [id number] 2.16.8 [id number] Unknown [id number] 2.16.8 [id number] Unknown [id number] 2.16.8 [id number] Unknown [id number] 2.16.8 [id number] Unknown [id number] 2.16.8 [id number] Unknown [id number] 2.16.8 [id number] Unknown [id number] 2.16.8 [id number] Unknown [id number] 2.16.8 [id number] Unknown [id number] 2.16.8 [id number] Unknown [id number] 2.16.8 [id number] Unknown [id number] 2.16.8 [id number] Unknown [id number] 2.16.8 [id number] Social History Date Type Detail Facility Start: 10-10-2024 End: 10-26-2024 Tobacco smoking status NHIS Never smoked tobacco (finding) [facility] Start: 10-25-2024 End: 12-08-2024 Sex Male (finding) [facility] Start: 1975 Sex Assigned At Male W [facility] Goals Date Patient Goal Desired Activity /State Mental Status Date Assessment Result Facility 10-10-2024 Cognitive function Light Pain [facility] Work Phone: Procedure note 12-05-2024 Note Date & Type Note Facility 12-05-2024 Procedure note [facility] Radiology Diagnostic study note 11-01-2024 Note Date & Type Note Facility 11-01-2024 Radiology Diagnostic study note [facility] Services [address] [place] [address] ABD Limited w/ Elastography MR#: [id number] Acct: [id number] Name: RJ JOHNSON II Rep #: [id number] : 1975 M [id number] From: Dario Miller MD PCP: Dr. Michael Santana MD Status: REG CLI Study:ABD Limited w/ Elastography Date of Exa m: 11/01/24 Exam# [id number] Ordering Dr: Elda Santana MD PROCEDURE: ABD LIMITED W/ ELASTOGRAPHY REASON FOR EXAM: NEW ELEVATED LFTS, ETOH. COMPARISON: None. TECHNIQUE: Right upper quadrant abdominal ultrasound. [employer] ElastQ Imaging shear wave elastography for non-invasive assessment of liver tissue stiffness. [employer] EPIQ Elite. FINDINGS: LIVER: Size: Enlarged (hepatomegaly) [...] measurement may be in question. Reading Location: [place] [address] CC: Dr. 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 [facility] Evaluation note 10-10-2024 Note Date & Type Note Facility 10-10-2024 Evaluation note Diagnosis Onset Date Resolution Encounter for screening for malignant neoplasm of colon acute October 10 8:07am [facility] Work Phone: Evaluation note 10-10-2024 Note Date & Type Note Facility 10-10-2024 Evaluation note Diagnosis Onset Date Resolution Encounter for screening for malignant neoplasm of colon acute October 10 8:07am B12 nutritional deficiency acute November 15, 2024 10:52am Hyponatremia acute November 15 10:52am Polyneuropathy acute November 15, 2024 10:52am Vitamin d deficiency acute Apri 2024 10:52am [facility] Work Phone: Evaluation note 10-10-2024 Note Date & Type Note Facility 10-10-2024 Evaluation note Diagnosis Onset Date Resolution Encounter for screening for malignant neoplasm of colon acute October 10, 8:07am B12 nutritional deficiency acute November 15, 2024 10:52am Hyponatremia acute November 15 10:52am Polyneuropathy acute November 15, 2024 10:52am Vitamin d deficiency acute Apri l 2024 10:52am B12 nutritional deficiency acute January 22, 2025 1:29pm Hyponatremia acute January 22 1:29pm Lumbar radiculopathy acute January 22, 2025 1:29pm Polyneuropathy acute January 22, 2025 1:29pm Vitamin d deficiency acute January 22, 2025 1:29pm [facility] Work Phone: Clinical Note 10-10-2024 Note Date & Type Note Facility 10-10-2024 Note [facility] Medical Records Department [address] [place] [address] History Physical Exam 10/10/24 0907 MR#: [id number] Acct: [id number] Name: RJ JOHNSON II Rep #: [id number] : 1975 48 From: Paddy Lanza MD PCP: Dr. Michael Santana MD Status:[facility] Location: [place] [address] HPI - General HPI Narrative RJ JOHNSON, is a 48 M who presents for his for screening colonoscopy. Patient denies any abdominal pain or blood in the stool. He has never had a colonoscopy in the past. No family history of colon cancer. [facility] Medical History High cholesterol GERD (gastroesophageal reflux [...] 08:29) Discharge Is Pt Admitted From a Halfway, or a Residential: No After D/C, Where Do you Plan [...] proceed with procedure. Paddy Lanza MD Pager: [facility] [address] [place] [address], [address] [place] [address] Office: Surgery Risks - Colonoscopy Risks Include but are not Limited To: Risks include but are not limited to: Bleeding, perforation requiring further surgery, inability to complete colonoscopy requiring barium enema. 10/10/24 0908 Cosigner Signature (if applicable): CC: Dr. Paddy Lanza MD; Dr. Michael Santana MD Signed [facility] Reason for referral (narrative) Note Date & Type Note Facility Reason for referral (narrative) No reason for referral information available [facility] Work Phone: Summary Purpose Family History No Family History Records Found Relationship Condition Age at Onset Recorded Date/T naren father Malignant neoplasm of prostate Unknown Advance Directives No Advanced Directives Records Found Advance Directive Response Recorded Date/ Time Living Will Yes October 04 1:02pm Power of Cross Country/Track And Field Coach No October 04, 2024 1:02pm Advance Directive Response Recorded Date/ Time Living Will Yes October 04 1:02pm Do you have a Healthcare Power of Cross Country/Track And Field Coach? No October 04, 2024 1:02pm Chief Complaint [...] Date EORDER- PSA/ AND ADDT ORDERS FOR RANNEY October 06, 2024 1:12pm xray October 26, [...] Date EORDER- PSA/ AND ADDT ORDERS FOR RANNEY October 06, 2024 1:12pm xray October 26, [...] section and content) DATE CREATED AUTHOR 10/27/2024 [facility] DATE CREATED AUTHOR AUTHOR'S ORGANIZ ATION 02/17/2025 [facility] Care Teams (unrecognized sec tion and content) [...] 2024 End: October 06, 2024 Liudmila Schrader CODING QUALITY ANALYST, CODING QUALITY ANALYST-C Attending Provider Active S tart: October 06, 2024 End: October 06, 2024 Liudmila Schrader CODING QUALITY ANALYST, CODING QUALITY ANALYST-C Referring Provider Active S tart: October 06, [...] Provider Active Start: October 10, 2024 Dr. Padyd Lanza MD Referring Provider Active Start: October [...] 22, 2025 End: January 22, 2025 Dr. iWsam Cosby MD Attending Provider Active Start: January 22, 2025 End: January 22, 2025 Team Status: Inactive Member Role Status Dates Dr. Michael Santana MD Primary Care Provider Acti ve Start: January 24, 2025 End: January 24, 2025 Dr. Wisam Cosby MD Attending Provider Active Start: January 24, 2025 End: January 24, 2025 FOR RECORDS PERTAINING TO PATIENTS WHO [...] BE BASED ON THE PRIMARY CLINICAL RECORDS. [facility] [employer] [facility]. provides no warranty or guarantee of the accuracy or completeness of information in this document.
== END | disposition home or self-care (01) ==
PROVIDERS: PCP Family Medicine; Referring Provider Psychiatry & Neurology Neurology; Visit Provider Psychiatry & Neurology Neurology
DX: M54.16 Radiculopathy, lumbar region (principal)
CPT/HCPCS: 72148

== ENCOUNTER → 2025-03-02 | Outpatient (CLI) | payer OTHER, SELFPAY ==
--- OUTSIDE RECORDS SUMMARY | 2025-03-02 10:11 | XMS RPT_ITS | CCD ---
Author Organization [facility] Care Team Providers Care Toll Patrolman Name Role Phone PHYSICIAN, NONE Primary Care Unavailable MAX NELSON, DR RODRIGUEZ Attending HayleyriViola Graham Attending Provider Unavailable Max NELSON, Dr. Rodriguez Primary Care Provider Max NELSON, Dr. Rodriguez Other Provider Raciel CHIEF PHARMACIST-C, Liudmlia Attending Provider [phone] Raciel CHIEF PHARMACIST-C, Liudmila Referring Provider Myla NELSON, Dr. Thomason Attending Provider Myla NELSON, Dr. Thomsaon Referring Provider Myla NELSON, Dr. Thomason Other Provider Max NELSON, Dr. Rodriguez Attending Provider Max NELSON, Dr. Rodriguez Referring Provider [phone] Catrina NELSON, Dr. Ibanez Attending Provider Dr. Wisam Cosby MD Attending Provider Dr. Wisam Cosby MD Referring Provider Dr. Wisam Cosby MD Other Provider [phone] Pita NELSON, Dr. Torres Attending Provider Dr. Wisam Cosby MD Referring Provider [phone] Michael Santana Primary Care Unavailable Michael Santana Referring Unavailable Michael Santana Attending Unavailable Michael Santana Primary Care Unavailable Wisam Cosby Referring Unavailable Wisam Cosby Attending Unavailable Michael Santana Primary Care Unavailable Wisam Cosby Attending [facility] Primary Care Unavailable Wisam Cosby Referring Unavailable Wisam Cosby Attending Unavailable [facility] Primary Care Unavailable Max, [facility] Referring Unavailable Wisam Cosby Attending Unavailable Viola Henley Attending Unavailable [facility] Primary Care Unavailable Wisam Cosby Consulting Unavailable Wisam Cosby Referring Unavailable Melissa Lema Attending Unavailable [facility] Primary Care Unavailable Paddy Lanza Referring Unavailable Paddy Lanza Attending Unavailable Paddy Lanza Consulting Unavailable [facility] Primary Care Unavailable Michael Santana Referring Unavailable Wisam Cosby Attending Unavailable [facility] Primary Care Unavailable Shamar Fritz Attending Unavailable [facility] Primary Care Unavailable Liudmila Schrader Referring Unavailable Liudmila Schrader Attending Unavailable Michael Santana Consulting Unavailable Paddy Lanza Attending Unavailable Paddy Lanza Referring [facility]available [facility] Primary Care Unavailable Max, Michael Referring Unavailable Michael Santana Attending Unavailable [facility] Primary Care Unavailable Max, Michael Referring Unavailable [...] 01-29-2025 Fol.,Hemolysate 526.0 ng/mL Normal Not Estab. [facility] Comment on above: Performed By: #### L 501.5101, L3300.8000, L500.4100, L400.2011, L500.4050, L100.0100, L503.6550, L505.5000, L506.1000, L503.6150, L502.0500, L101.9900, L501.9520, L503.0105, L501.5200 #### [facility] [address] [facility]. [place], [place], [id number] Folate, RBC 1392 ng/mL Normal >498 [facility] Comment on above: Performed By: #### L 501.5101, L3300.8000, L500.4100, L400.2011, L500.4050, L100.0100, L503.6550, L505.5000, L506.1000, L503.6150, L502.0500, L101.9900, L501.9520, L503.0105, L501.5200 #### [facility] [address] [place], [place], [id number] Hematocrit (Bld) [Volume fraction] 37.8 % Normal 37.5-51.0 [facility] Comment on above: Performed By: #### L 501.5101, L3300.8000, L500.4100, L400.2011, L500.4050, L100.0100, L503.6550, L505.5000, L506.1000, L503.6150, L502.0500, L101.9900, L501.9520, L503.0105, L501.5200 #### [facility] [address] [place], [address] Intrinsic Factor Abon 2024 INTRINS FACT AB 1.0 AU/mL Normal 0.0-1.1 [facility] Comment on above: Result Comment: Perf ormed at: - [facility] [address] [id number] Museum Guide: Pablito Rubalcava PhD, Phone: [phone] Performed at: - [facility] [address] [id number] Museum Guide: Felicia Garcia MD, Phone: [phone] Performed By: #### L 501.5101, L3300.8000, L500.4100, L400.2011, L500.4050, L100.0100, L503.6550, L505.5000, L506.1000, L503.6150, L502.0500, L101.9900, L501.9520, L503.0105, L501.5200 #### [facility] [address] [place], [address] Springs Lambda Light Chainson 01-29-2025 FR KAPPA LT CHN 46.3 mg/L Abnormal 3.3-19.4 [facility] Comment on above: Performed By: #### L 501.5101, L3300.8000, L500.4100, L400.2011, L500.4050, L100.0100, L503.6550, L505.5000, L506.1000, L503.6150, L502.0500, L101.9900, L501.9520, L503.0105, L501.5200 #### [facility] [address] [place], [place], [id number] FR LAMBDA LT CH 88.8 mg/L Abnormal 5.7-26.3 [facility] Comment on above: Performed By: #### L 501.5101, L3300.8000, L500.4100, L400.2011, L500.4050, L100.0100, L503.6550, L505.5000, L506.1000, L503.6150, L502.0500, L101.9900, L501.9520, L503.0105, L501.5200 #### [facility] [address] [place], [place], [id number] KAPPA/LAMBDA % 0.52 Normal 0.26-1.65 [facility] Comment on above: Performed By: #### L 501.5101, L3300.8000, L500.4100, L400.2011, L500.4050, L100.0100, L503.6550, L505.5000, L506.1000, L503.6150, L502.0500, L101.9900, L501.9520, L503.0105, L501.5200 #### [facility] [address] [place], [place], [id number] Anion gap in Serum or Plasma Ordered By: Wisam Cosby on 01-24-2025 Anion gap [Moles/Vol] 13 mmol/L 5-15 [facility] BUN/creatinine ratioOrdered By: Wisam Cosby on 01-24-2025 Urea nitrogen/Creatinine [Mass ratio] 14.2 mg/mg 10-20 [facility] Bilirubin, totalOrdered By: Wisam Cosby on 01-24-2025 Bilirubin [Mass/Vol] 1.06 mg/dL 0.00-1.30 [facility] Carbon dioxide, total [Moles /volume] in Central venous bloodOrdered By: Wisam Cosby on 01-24-2025 CO2 [Moles/Vol] 23.4 mmol/L 21.0-32.0 [facility] Chloride assayOrdered By: Ra aylin Cosby on 01-24-2025 Chloride [Moles/Vol] 92 mmol/L Low 98-108 [facility] Comprehensive Metabolic Prof ilon 01-24-2025 Albumin [Mass/Vol] 4.1 g/dL Normal 3.5-5.0 [facility] Comment on above: Performed By: #### L 501.5101, L3300.8000, L500.4100, L400.2011, L500.4050, L100.0100, L503.6550, L505.5000, L506.1000, L503.6150, L502.0500, L101.9900, L501.9520, L503.0105, L501.5200 #### [facility] [address] [place], [address] Albumin/Globulin [Mass ratio] 1.0 {ratio} Normal 0.9-2.4 [facility] Comment on above: Performed By: #### L 501.5101, L3300.8000, L500.4100, L400.2010, L500.4050, L100.0100, L503.6550, L505.5000, L506.1000, L503.6150, L502.0500, L101.9900, L501.9520, L503.0105, L501.5200 #### [facility] [address] [place], [place], [id number] ALK PHOS 85 U/L Normal 40-129 [facility] Comment on above: Performed By: #### L 501.5101, L3300.8000, L500.4100, L400.2010, L500.4050, L100.0100, L503.6550, L505.5000, L506.1000, L503.6150, L502.0500, L101.9900, L501.9520, L503.0105, L501.5200 #### [facility] [address] [place], [address] ALT [Catalytic activity/Vol] 81 U/L High <=46 [facility] Comment on above: Performed By: #### L 501.5101, L3300.8000, L500.4100, L400.2010, L500.4050, L100.0100, L503.6550, L505.5000, L506.1000, L503.6150, L502.0500, L101.9900, L501.9520, L503.0105, L501.5200 #### [facility] [address] [place], [place], [id number] AST [Catalytic activity/Vol] 102 U/L High <=37 [facility] Comment on above: Performed By: #### L 501.5101, L3300.8000, L500.4100, L400.2011, L500.4050, L100.0100, L503.6550, L505.5000, L506.1000, L503.6150, L502.0500, L101.9900, L501.9520, L503.0105, L501.5200 #### [facility] [address] [place], [address] Bilirubin [Mass/Vol] 1.06 mg/dL Normal 0.00-1.30 [facility] Comment on above: Performed By: #### L 501.5101, L3300.8000, L500.4100, L400.2011, L500.4050, L100.0100, L503.6550, L505.5000, L506.1000, L503.6150, L502.0500, L101.9900, L501.9520, L503.0105, L501.5200 #### [facility] [address] [place], [place], [address] BUN/CRE 14.2 RATIO Normal 10-20 [facility] Comment on above: Performed By: #### L 501.5101, L3300.8000, L500.4100, L400.2011, L500.4050, L100.0100, L503.6550, L505.5000, L506.1000, L503.6150, L502.0500, L101.9900, L501.9520, L503.0105, L501.5200 #### [facility] [address] [place], [address] Calcium [Mass/Vol] 10.0 mg/dL Normal 7.6-11.0 [facility] Comment on above: Performed By: #### L 501.5101, L3300.8000, L500.4100, L400.2011, L500.4050, L100.0100, L503.6550, L505.5000, L506.1000, L503.6150, L502.0500, L101.9900, L501.9520, L503.0105, L501.5200 #### [facility] [address] [place], [address] Chloride [Moles/Vol] 92 mmol/L Low 98-108 [facility] Comment on above: Performed By: #### L 501.5101, L3300.8000, L500.4100, L400.2011, L500.4050, L100.0100, L503.6550, L505.5000, L506.1000, L503.6150, L502.0500, L101.9900, L501.9520, L503.0105, L501.5200 #### [facility] [address], [address] CO2 [Moles/Vol] 23.4 mmol/L Normal 21.0-32.0 [facility] Comment on above: Performed By: #### L 501.5101, L3300.8000, L500.4100, L400.2011, L500.4050, L100.0100, L503.6550, L505.5000, L506.1000, L503.6150, L502.0500, L101.9900, L501.9520, L503.0105, L501.5200 #### [facility] [address] [place], [address] Creatinine [Mass/Vol] 0.98 mg/dL Normal 0.70-1.20 [facility] Comment on above: Performed By: #### L 501.5101, L3300.8000, L500.4100, L400.2011, L500.4050, L100.0100, L503.6550, L505.5000, L506.1000, L503.6150, L502.0500, L101.9900, L501.9520, L503.0105, L501.5200 #### [facility] [address] [place], [place], [address] GAP 13 Normal 5-15 [facility] Comment on above: Performed By: #### L 501.5101, L3300.8000, L500.4100, L400.2011, L500.4050, L100.0100, L503.6550, L505.5000, L506.1000, L503.6150, L502.0500, L101.9900, L501.9520, L503.0105, L501.5200 #### [facility] [address] [place], [address] GFR/1.73 sq M.predicted among non-blacks MDRD (S/P/Bld) [Vol rate/Area] 95 mL/min/{1.73_m2} Normal >60 [facility] Comment on above: Result Comment: mL/m in/1.73m2 CKD-EPI Creatinine Equation (2020) Performed By: #### L 501.5101, L3300.8000, L500.4100, L400.2010, L500.4050, L100.0100, L503.6550, L505.5000, L506.1000, L503.6150, L502.0500, L101.9900, L501.9520, L503.0105, L501.5200 #### [facility] [address] [place], [address] Globulin (S) [Mass/Vol] 4.2 g/dL Normal 2.2-4.2 [facility] Comment on above: Performed By: #### L 501.5101, L3300.8000, L500.4100, L400.2011, L500.4050, L100.0100, L503.6550, L505.5000, L506.1000, L503.6150, L502.0500, L101.9900, L501.9520, L503.0105, L501.5200 #### [facility] [address] [place], [address] Glucose [Mass/Vol] 98 mg/dL Normal 70-99 [facility] Comment on above: Performed By: #### L 501.5101, L3300.8000, L500.4100, L400.2011, L500.4050, L100.0100, L503.6550, L505.5000, L506.1000, L503.6150, L502.0500, L101.9900, L501.9520, L503.0105, L501.5200 #### [facility] [address] [place], [address] Potassium [Moles/Vol] 4.2 mmol/L Normal 3.3-5.1 [facility] Comment on above: Performed By: #### L 501.5101, L3300.8000, L500.4100, L400.2011, L500.4050, L100.0100, L503.6550, L505.5000, L506.1000, L503.6150, L502.0500, L101.9900, L501.9520, L503.0105, L501.5200 #### [facility] [address] [place], [address] Sodium [Moles/Vol] 128 mmol/L Low 133-145 [facility] Comment on above: Performed By: #### L 501.5101, L3300.8000, L500.4100, L400.2011, L500.4050, L100.0100, L503.6550, L505.5000, L506.1000, L503.6150, L502.0500, L101.9900, L501.9520, L503.0105, L501.5200 #### [facility] [address] [place], [place], [address] T PROT 8.3 g/dL Normal 5.9-8.4 [facility] Comment on above: Performed By: #### L 501.5101, L3300.8000, L500.4100, L400.2011, L500.4050, L100.0100, L503.6550, L505.5000, L506.1000, L503.6150, L502.0500, L101.9900, L501.9520, L503.0105, L501.5200 #### [facility] [address] [place], [place], [address] Urea nitrogen [Mass/Vol] 14 mg/dL Normal 4-19 [facility] Comment on above: Performed By: #### L 501.5101, L3300.8000, L500.4100, L400.2011, L500.4050, L100.0100, L503.6550, L505.5000, L506.1000, L503.6150, L502.0500, L101.9900, L501.9520, L503.0105, L501.5200 #### [facility] [address] [facility]. [place], [place], [address] Erythrocyte folate measureme nt with hematocritOrdered By: Wisam Cosby on 01-24-2025 Hematocrit (Bld) [Volume fraction] 37.8 % 37.5-51.0 [facility] Glomerular filtration rate ( GFR) estimation/1.73 sq m using serum, plasma, or whole bOrdered By: Wisam Cosby on 01-24-2025 GFR/1.73 sq M.predicted among non-blacks MDRD (S/P/Bld) [Vol rate/Area] 95 mL/min/{1.73_m2} >60 [facility] Comment on above: mL/min/1.73m2 CKD-EP I Creatinine Equation (2020) Hemoglobin A1con 01-24-2025 HbA1c (Bld) [Mass fraction] 5.3 % Normal <=5.6 [facility] Comment on above: Result Comment: Norm al < 5.7 % Prediabetic 5.7 - 6.4 % Diabetic >or= 6.5 % Please note range changes. Performed By: #### L 501.5101, L3300.8000, L500.4100, L400.2011, L500.4050, L100.0100, L503.6550, L505.5000, L506.1000, L503.6150, L502.0500, L101.9900, L501.9520, L503.0105, L501.5200 #### [facility] [address] [place], [place], [id number] Hemoglobin A1c percentageOrd ered By: Wisam Cosby on 01-24-2025 HbA1c (Bld) [Mass fraction] 5.3 % <5.7 [facility] Comment on above: Normal < 5.7 % Predi abetic 5.7 - 6.4 % Diabetic >or= 6.5 % Please note range changes. Laboratory - Chemistry and C hemistry - challengeOrdered By: Wisam Cosby on 01-24-2025 AST [Catalytic activity/Vol] 102 U/L High <38 [facility] Magnesiumon 01-24-2025 Magnesium [Mass/Vol] 1.9 mg/dL Normal 1.5-2.2 [facility] Comment on above: Performed By: #### L 501.5101, L3300.8000, L500.4100, L400.2010, L500.4050, L100.0100, L503.6550, L505.5000, L506.1000, L503.6150, L502.0500, L101.9900, L501.9520, L503.0105, L501.5200 #### [facility] [address] [place], [address] Magnesium measurement (mass/ volume)Ordered By: Wisam Cosby on 01-24-2025 Magnesium (Unsp spec) [Mass/Vol] 1.9 mg/dL 1.5-2.2 [facility] Potassium measurement (mass/ volume)Ordered By: Wisam Cosby on 01-24-2025 Potassium (Unsp spec) [Mass/Vol] 4.2 mmol/L 3.3-5.1 [facility] Serum creatinine measurement (mass/volume)Ordered By: Wisam Cosby on 01-24-2025 Creatinine [Mass/Vol] 0.98 mg/dL 0.70-1.20 [facility] Serum globulin measurementOr dered By: Wisam Cosby on 01-24-2025 Globulin (S) [Mass/Vol] 4.2 g/dL 2.2-4.2 [facility] Serum glucose measurement (m ass/volume)Ordered By: Wisam Cosby on 01-24-2025 Glucose [Mass/Vol] 98 mg/dL 70-99 [facility] Serum immunoglobulin kappa l ight chains/immunoglobulin lambda light chains mass ratioOrdered By: Wisam Cosby 01-24-2025 Immunoglobulin light chains.kappa/Immunoglobulin light chains.lambda (S) [Mass ratio] 0.52 0.26-1.65 [facility] Serum or plasma alanine bruno otransferase (ALT) measurementOrdered By: Wisam Cosby on 01-24-2025 ALT [Catalytic activity/Vol] 81 U/L High <47 [facility] Serum or plasma albumin carlos urement (mass/volume)Ordered By: Wisam Cosby 01-24-2025 Albumin [Mass/Vol] 4.1 g/dL 3.5-5.0 [facility] Serum or plasma albumin/glob ulin mass ratioOrdered By: Wisam Cosby 01-24-2025 Albumin/Globulin [Mass ratio] 1.0 {ratio} 0.9-2.4 [facility] Serum or plasma alkaline ann sphatase measurementOrdered By: Wisam Cosby 01-24-2025 ALP [Catalytic activity/Vol] 85 U/L 40-129 [facility] Serum or plasma calcium carlos urement (mass/volume)Ordered By: Wisam Cosby 01-24-2025 Calcium [Mass/Vol] 10.0 mg/dL 7.6-11.0 [facility] Serum or plasma immunoglobul in kappa light chains measurement (mass/volume)Ordered By: Wisam Cosby on 01-24-2025 Immunoglobulin light chains.kappa [Mass/Vol] 46.3 mg/L High 3.3-19.4 [facility] Serum or plasma urea nitroge n measurement (mass/volume)Ordered By: Wisam Cosby on 01-24-2025 Urea nitrogen [Mass/Vol] 14 mg/dL 4-19 [facility] Sodium levelOrdered By: Stefani Cosby on 01-24-2025 Sodium [Moles/Vol] 128 mmol/L Low 133-145 [facility] Total proteinOrdered By: Xavi Cosby on 01-24-2025 Protein [Mass/Vol] 8.3 g/dL 5.9-8.4 [facility] Neurology Visit Reporton Neurology Visit Report [facility] [address], [address] [place] [address] OFFICE VISIT Date of Service: 01/22/25 MR#: [id number] Acct: [id number] Name: RJ JOHNSON II Rep #: [id number] : 1975 Provider: Dr. Wisam joe MD Age/Sex: 49/M [place] [facility]: Signed with Addenda ADDENDUM by Dr. Wisam Cosby MD on 02/14/25 at 7195 Addendum Addendum (02/14/2025): CMP, folate, serum free [...] water intake. He has been adding an zqbc-ayz-ybqvrit electrolyte packet supplement to some of his [...] SACRUM/COCCYX: Unremar (more content not included)... Normal [facility] NCS and/or EMG Patienton NCS and/or EMG Patient [facility] Pulmonary Services/Neurology [address] [place] [address] MR#: [id number] Acct: [id number] Name: RJ JOHNSON SHINE Rep #: [id number] : 1975 48 From: Melissa Lema MD Referring Dr: Wisam Cosby MD Status: REG CL I Location: [facility] Date: 12/05/24 Sex: M C NCS and/or [...] Multi Select Codes Neurology Neurology Interp Codes: 06161-57 Musc test done w/n test comp (interp) (2) and 10874-11 Nrv cndj test 7-8 studies (interp) 12/05/24 1251 Date Melsisa Lema MD CC: Dr. Melissa Lema MD; Dr. Michael Santana MD; Dr. Wisam Cosby MD Date Dictated: 12/05/24918 Date Transcribed: 12/05/24918 Repair Welder: Signed Normal [facility] Inital Evaluation (1) - PTon 11-27-2024 Inital Evaluation (1) - PT [facility] [address] [place] [address]. [address] [place] [address] / REHABILITATION SERVICES INITIAL EVALUATION MR#: [id number] Acct: [id number] Name: RJ JOHNSON II Rep #: [id number] : 1975 48 From: Emerson Ortiz DPT Referring Dr.: Dr. Wisam Cosby MD Status: REG RCR Insurance: [facility] SELF PAY INSURANCE Patient's Visit Information Visit [...] to be FAXED BACK to us at [phone] for Medicare purposes. For Medicare only, by signing this I certify the plan of care. Please let me know if there are questions or concerns regarding this plan of care. Physician Signature: Date:__ 11/27/24 1533 CC: Dr. Michael Santana MD; Dr. Wisam Cosby MD CLS Signed Normal [facility] Neurology Visit Reporton Neurology Visit Report [facility] [address], [address] [place] [address] OFFICE VISIT Date of Service: 11/15/24 MR#: [id number] Acct: [id number] Name: RJ JOHNSON II Rep #: [id number] : 1975 Provider: Dr. Wisam joe MD Age/Sex: 48/M [place] [facility]: Signed with Addenda ADDENDUM by Dr. [...] some coffee. He has started adding an mmlt-ljx-clxnhdp electrolyte packet some of his water consumption. [...] and brachi (more content not included)... Normal [facility] ABD Limited w/ Elastographyo n 11-01-2024 ABD Limited w/ Elastography [facility] Imaging Services [address] [place] [id number] ABD Limited w/ Elastography MR#: [id number] Acct: [id number] Name: RJ JOHNSON II Rep #: [id number] : 1975 M 48 From: Miguel Angel lux MD PCP: Dr. Michael Santana MD Status: [facility] Study: ABD Limited w/ Elastography Date of Exam: 10/14 05/10 Exam# [id number] Ordering Dr: Michael Santana PROCEDURE: ABD LIMITED W/ ELASTOGRAPHY REASON FOR EXAM: NEW ELEVATED LFTS, ETOH. COMPARISON: None. TECHNIQUE: Right upper quadrant abdominal ultrasound. Ch[employer] ElastQ Imaging shear wave elastography for non- invasive assessment of liver tissue stiffness. [employer] EPIQ Elite. FINDINGS: LIVER: Size: Enlarged (hepatomegaly) [...] measurement may be in question. Reading Location: [place] [address] CC: Dr. Michael Santana MD Repair Welder: Signed Normal [facility] Lumbar Spine 2 or 3 Viewson 10-26-2024 Lumbar Spine 2 or 3 Views [facility] Imaging Services [address] [place] [address] Lumbar Spine 2 or 3 Views MR#: [id number] Acct: [id number] Name: RJ JOHNSON II Rep #: [id number] : 1975 M 48 From: Mg Orta MD PCP: Dr. Michael Santana MD Status: DEP AMB Study: Lumbar Spine 2 or 3 Views Date of Exam: Exam# [id number] Ordering Dr: Michael Santana EXAM: XR Lumbosacral [...] Views IMPRESSION: No acute fracture. Reading Location: [facility] CC: Dr. Michael Santana MD Repair Welder: Signed Normal [facility] MRI BRAIN W/O CONTRASTon MRI BRAIN [...] 12:11:21 PM Ordering Provider: MICHAEL SANTANA Normal [facility] Celiac Disease Profileon ENDOMYSIAL IGA Negative Normal Negative [facility] Comment on above: Performed By: #### L 501.5101, L3300.8000, L500.4100, L400.2011, L500.4050, L100.0100, L503.6550, L505.5000, L506.1000, L503.6150, L502.0500, L101.9900, L501.9520, L503.0105, L501.5200 #### [facility] [address] [place], [address] IMMUNOGLOB A QN 451 mg/dL High 90-386 [facility] Comment on above: Performed By: #### L 501.5101, L3300.8000, L500.4100, L400.2011, L500.4050, L100.0100, L503.6550, L505.5000, L506.1000, L503.6150, L502.0500, L101.9900, L501.9520, L503.0105, L501.5200 #### [facility] [address] [facility] [place], [address] tTG IGA <2 Normal 0-3 [facility] Comment on above: Result Comment: Nega [...] L503.6150, L502.0500, L101.9900, L501.9520, L503.0105, L501.5200 #### [facility] [address] [facility] [place], [address] Hepatitis Panel Acuteon 03-0 COMMENT Comment Normal . [facility] Comment on above: Result Comment: Not infected with HCV unless early or acute infection is suspected (which may be delayed in an immunocompromised individual), or other evidence exists to indicate HCV infection. Performed at: - [facility] [id number] Museum Guide: Pablito Rubalcava PhD, Phone: [phone] Performed By: #### L 501.5101, L3300.8000, L500.4100, L400.2011, L500.4050, L100.0100, L503.6550, L505.5000, L506.1000, L503.6150, L502.0500, L101.9900, L501.9520, L503.0105, L501.5200 #### [facility] [address] [place], [address] HEP B CORE,IgM Negative Normal Negative [facility] [facility] Comment on above: Performed By: #### L 501.5101, L3300.8000, L500.4100, L400.2011, L500.4050, L100.0100, L503.6550, L505.5000, L506.1000, L503.6150, L502.0500, L101.9900, L501.9520, L503.0105, L501.5200 #### [facility] [address] [facility] [place], [address] HEP B SURF AG Negative Normal Negative [facility] Comment on above: Performed By: #### L 501.5101, L3300.8000, L500.4100, L400.2011, L500.4050, L100.0100, L503.6550, L505.5000, L506.1000, L503.6150, L502.0500, L101.9900, L501.9520, L503.0105, L501.5200 #### [facility] [address] [facility] [place], [address] HEP C VIRUS AB Non-Reactive Normal Non Reactive [facility] Comment on above: Performed By: #### L 501.5101, L3300.8000, L500.4100, L400.2011, L500.4050, L100.0100, L503.6550, L505.5000, L506.1000, L503.6150, L502.0500, L101.9900, L501.9520, L503.0105, L501.5200 #### [facility] [address] [facility] [place], [address] HEPATITIS A-IgM Negative Normal Negative [facility] Comment on above: Result Comment: A ne gative anti-HAV IgM result suggests no recent or current HAV infection. Performed By: #### L 501.5101, L3300.8000, L500.4100, L400.2011, L500.4050, L100.0100, L503.6550, L505.5000, L506.1000, L503.6150, L502.0500, L101.9900, L501.9520, L503.0105, L501.5200 #### [facility] [address] [place], [address] Alcohol, Blood (Medical)-Ser umon 10-16-2024 SERUM ETOH < 10.1 Normal <=10.0 [facility] Comment on above: Result Comment: This test is for medical purposes only. The legal definition of intoxication varies according to local law. Performed By: #### L 501.5101, L3300.8000, L500.4100, L400.2011, L500.4050, L100.0100, L503.6550, L505.5000, L506.1000, L503.6150, L502.0500, L101.9900, L501.9520, L503.0105, L501.5200 #### [facility] [address] [facility] [place], [address] Ammoniaon 10-16-2024 Ammonia (P) [Moles/Vol] 24.7 umol/L Normal 16-60 [facility] Comment on above: Performed By: #### L 501.5101, L3300.8000, L500.4100, L400.2011, L500.4050, L100.0100, L503.6550, L505.5000, L506.1000, L503.6150, L502.0500, L101.9900, L501.9520, L503.0105, L501.5200 #### [facility] [address] [facility] [place], [address] BUN/creatinine ratioOrdered By: Michael Santana on 10-16-2024 Urea nitrogen/Creatinine [Mass ratio] 13.7 mg/mg 10-20 [facility] Bilirubin, totalOrdered By: Michael Santana on 10-16-2024 Bilirubin [Mass/Vol] 1.03 mg/dL 0.00-1.30 [facility] Carbon dioxide measurementOr dered By: Michael Santana on 10-16-2024 CO2 [Moles/Vol] 24.5 mmol/L 22.0-29.0 [facility] Chloride measurementOrdered By: Michael Santana on 10-16-2024 Chloride [Moles/Vol] 92 mmol/L Low 96-108 [facility] Comprehensive Metabolic Prof ilon 10-16-2024 Albumin [Mass/Vol] 3.8 g/dL Normal 3.5-5.0 [facility] Comment on above: Performed By: #### L 501.5101, L3300.8000, L500.4100, L400.2010, L500.4050, L100.0100, L503.6550, L505.5000, L506.1000, L503.6150, L502.0500, L101.9900, L501.9520, L503.0105, L501.5200 #### [facility] [address] [place], [address] Albumin/Globulin [Mass ratio] 1.0 {ratio} Normal 0.9-2.4 [facility] Comment on above: Performed By: #### L 501.5101, L3300.8000, L500.4100, L400.2010, L500.4050, L100.0100, L503.6550, L505.5000, L506.1000, L503.6150, L502.0500, L101.9900, L501.9520, L503.0105, L501.5200 #### [facility] [address] [facility]. [place], [place], [id number] ALK PHOS 68 U/L Normal 40-129 [facility] Comment on above: Performed By: #### L 501.5101, L3300.8000, L500.4100, L400.2010, L500.4050, L100.0100, L503.6550, L505.5000, L506.1000, L503.6150, L502.0500, L101.9900, L501.9520, L503.0105, L501.5200 #### [facility] [address] [place], [place], [id number] ALT [Catalytic activity/Vol] 94 U/L High <=46 [facility] Comment on above: Performed By: #### L 501.5101, L3300.8000, L500.4100, L400.2011, L500.4050, L100.0100, L503.6550, L505.5000, L506.1000, L503.6150, L502.0500, L101.9900, L501.9520, L503.0105, L501.5200 #### [facility] [address] [place], [address] Anion gap [Moles/Vol] 11 mmol/L Normal 5-15 [facility] Comment on above: Performed By: #### L 501.5101, L3300.8000, L500.4100, L400.2011, L500.4050, L100.0100, L503.6550, L505.5000, L506.1000, L503.6150, L502.0500, L101.9900, L501.9520, L503.0105, L501.5200 #### [facility] [address] [place], [place], [id number] AST [Catalytic activity/Vol] 93 U/L High <=37 [facility] Comment on above: Performed By: #### L 501.5101, L3300.8000, L500.4100, L400.2011, L500.4050, L100.0100, L503.6550, L505.5000, L506.1000, L503.6150, L502.0500, L101.9900, L501.9520, L503.0105, L501.5200 #### [facility] [address] [place], [address] Bilirubin [Mass/Vol] 1.03 mg/dL Normal 0.00-1.30 [facility] Comment on above: Performed By: #### L 501.5101, L3300.8000, L500.4100, L400.2011, L500.4050, L100.0100, L503.6550, L505.5000, L506.1000, L503.6150, L502.0500, L101.9900, L501.9520, L503.0105, L501.5200 #### [facility] [address] [place], [address] BUN/CRE 13.7 RATIO Normal 10-20 [facility] Comment on above: Performed By: #### L 501.5101, L3300.8000, L500.4100, L400.2011, L500.4050, L100.0100, L503.6550, L505.5000, L506.1000, L503.6150, L502.0500, L101.9900, L501.9520, L503.0105, L501.5200 #### [facility] [address] [place], [address] Calcium [Mass/Vol] 9.2 mg/dL Normal 7.6-11.0 [facility] Comment on above: Performed By: #### L 501.5101, L3300.8000, L500.4100, L400.2011, L500.4050, L100.0100, L503.6550, L505.5000, L506.1000, L503.6150, L502.0500, L101.9900, L501.9520, L503.0105, L501.5200 #### [facility] [address] [place], [address] Chloride [Moles/Vol] 92 mmol/L Low 96-108 [facility] Comment on above: Performed By: #### L 501.5101, L3300.8000, L500.4100, L400.2011, L500.4050, L100.0100, L503.6550, L505.5000, L506.1000, L503.6150, L502.0500, L101.9900, L501.9520, L503.0105, L501.5200 #### [facility] [address] [place], [place], [phone] (167) CO2 [Moles/Vol] 24.5 mmol/L Normal 22.0-29.0 [facility] Comment on above: Performed By: #### L 501.5101, L3300.8000, L500.4100, L400.2011, L500.4050, L100.0100, L503.6550, L505.5000, L506.1000, L503.6150, L502.0500, L101.9900, L501.9520, L503.0105, L501.5200 #### [facility] [address] [place], [place], [id number] Creatinine [Mass/Vol] 1.01 mg/dL Normal 0.70-1.20 [facility] Comment on above: Performed By: #### L 501.5101, L3300.8000, L500.4100, L400.2011, L500.4050, L100.0100, L503.6550, L505.5000, L506.1000, L503.6150, L502.0500, L101.9900, L501.9520, L503.0105, L501.5200 #### [facility] [address] [place], [place], [id number] GFR/1.73 sq M.predicted among non-blacks MDRD (S/P/Bld) [Vol rate/Area] 92 mL/min/{1.73_m2} Normal >60 [facility] Comment on above: Result Comment: mL/m in/1.73m2 CKD-EPI Creatinine Equation (2020) Performed By: #### L 501.5101, L3300.8000, L500.4100, L400.2011, L500.4050, L100.0100, L503.6550, L505.5000, L506.1000, L503.6150, L502.0500, L101.9900, L501.9520, L503.0105, L501.5200 #### [facility] [address] [place], [address] Globulin (S) [Mass/Vol] 4.0 g/dL Normal 2.2-4.2 [facility] Comment on above: Performed By: #### L 501.5101, L3300.8000, L500.4100, L400.2011, L500.4050, L100.0100, L503.6550, L505.5000, L506.1000, L503.6150, L502.0500, L101.9900, L501.9520, L503.0105, L501.5200 #### [facility] [address] [place], [address] Glucose [Mass/Vol] 101 mg/dL High 70-99 [facility] Comment on above: Performed By: #### L 501.5101, L3300.8000, L500.4100, L400.2011, L500.4050, L100.0100, L503.6550, L505.5000, L506.1000, L503.6150, L502.0500, L101.9900, L501.9520, L503.0105, L501.5200 #### [facility] [address] [place], [address] Potassium [Moles/Vol] 3.9 mmol/L Normal 3.3-5.1 [facility] Comment on above: Performed By: #### L 501.5101, L3300.8000, L500.4100, L400.2011, L500.4050, L100.0100, L503.6550, L505.5000, L506.1000, L503.6150, L502.0500, L101.9900, L501.9520, L503.0105, L501.5200 #### [facility] [address] [place], [address] Sodium [Moles/Vol] 128 mmol/L Low 133-145 [facility] Comment on above: Performed By: #### L 501.5101, L3300.8000, L500.4100, L400.2011, L500.4050, L100.0100, L503.6550, L505.5000, L506.1000, L503.6150, L502.0500, L101.9900, L501.9520, L503.0105, L501.5200 #### [facility] [address] [facility] [address] [place], [place], [phone] (961) T PROT 7.8 g/dL Normal 5.9-8.4 [facility] Comment on above: Performed By: #### L 501.5101, L3300.8000, L500.4100, L400.2011, L500.4050, L100.0100, L503.6550, L505.5000, L506.1000, L503.6150, L502.0500, L101.9900, L501.9520, L503.0105, L501.5200 #### [facility] [address] [place], [place], [phone] (925) Urea nitrogen [Mass/Vol] 14 mg/dL Normal 4-19 [facility] Comment on above: Performed By: #### L 501.5101, L3300.8000, L500.4100, L400.2011, L500.4050, L100.0100, L503.6550, L505.5000, L506.1000, L503.6150, L502.0500, L101.9900, L501.9520, L503.0105, L501.5200 #### [facility] [address] [facility] [place], [address] Endomysial IgA antibody assa yOrdered By: Michael Santana on 10-16-2024 Endomysial IgA Antibody Negative Negative [facility] Ethanol [Mass/Vol]Ordered By : Michael Santana on 10-16-2024 Ethyl Alcohol Level < 10.1 mg/dL <10.1 [facility] Comment on above: This test is for med ical purposes only. The legal definition of intoxication varies according to local law. GFR/1.73 sq M.predicted devin g non-blacks MDRD (S/P/Bld) [Vol rate/Area]Ordered By: Michael Santana on 10-16-2024 Estimated GFR (MDRD) Non-Af Amer 92 >60 [facility] Comment on above: mL/min/1.73m2 CKD-EP I Creatinine Equation (2020) Glomerular filtration rate ( GFR) estimation/1.73 sq m using serum, plasma, or whole bOrdered By: Michael Santana on 10-16-2024 GFR/1.73 sq M.predicted among non-blacks MDRD (S/P/Bld) [Vol rate/Area] 92 mL/min/{1.73_m2} >60 [facility] Comment on above: mL/min/1.73m2 CKD-EP I Creatinine Equation (2020) HBV surface Ag IA QlOrdered By: Michael Santana on 10-16-2024 Hepatitis B Surface Antigen Negative Negative [facility] Hepatitis A virus IgM antibo dy assayOrdered By: Michael Santana on 10-16-2024 Hepatitis A IgM Antibody Negative Negative [facility] Comment on above: A negative anti-HAV IgM result suggests no recent orcurrent HAV infection. Hepatitis B virus core IgM a ntibody assayOrdered By: Mcihael Santana on 10-16-2024 Hepatitis B Core IgM Antibody Negative Negative [facility] Hepatitis C virus antibody a ssayOrdered By: Michael Santana on 10-16-2024 Hepatitis C Antibody (EIA) Non-Reactive N on Reactive [facility] IgA [Mass/Vol]Ordered By: Kolton Santana on 10-16-2024 Immunoglobulin A 451 mg/dL High 90-386 [facility] - Chemistry and C hemistry - challengeOrdered By: Michael Santana on 10-16-2024 AST [Catalytic activity/Vol] 93 U/L High <38 [facility] No Panel InformationOrdered By: Michael Santana on 10-16-2024 Hepatitis C Antibody Comment Comment . [facility] Comment on above: Not infected with HC V unless early or acute infection issuspected (which may be delayed in an immunocompromisedindividual), or other evidence exists to indicate HCVinfection.Performed at: [facility] [address] [id number] Director: Pablito Rubalcava PhD, Phone: [phone] Osmolality, Serumon 10-17-19 25 OSMOLALITY,SER 268 mOsm/KG Low 275-295 [facility] Comment on above: Performed By: #### L 501.5101, L3300.8000, L500.4100, L400.2011, L500.4050, L100.0100, L503.6550, L505.5000, L506.1000, L503.6150, L502.0500, L101.9900, L501.9520, L503.0105, L501.5200 #### [facility] [address] [place], [place], [address] Osmolality, serumOrdered By: Michael Santana on 10-16-2024 Serum Osmolality 268 mOsm/KG Low 275-295 [facility] Serum creatinine measurement (mass/volume)Ordered By: Michael Santana on 10-16-2024 Creatinine [Mass/Vol] 1.01 mg/dL 0.70-1.20 [facility] Serum globulin measurementOr dered By: Michael Santana on 10-16-2024 Globulin (S) [Mass/Vol] 4.0 g/dL 2.2-4.2 [facility] Serum glucose measurement (m ass/volume)Ordered By: Michael Santana on 10-16-2024 Glucose [Mass/Vol] 101 mg/dL High 70-99 [facility] Serum or plasma IgA measurem ent (mass/volume)Ordered By: Michale Santana on 10-16-2024 IgA [Mass/Vol] 451 mg/dL High 90-386 [facility] Serum or plasma alanine bruno otransferase (ALT) measurementOrdered By: Michael Santana on 10-16-2024 ALT [Catalytic activity/Vol] 94 U/L High <47 [facility] Serum or plasma albumin carlos urement (mass/volume)Ordered By: Michael Santana on 10-16-2024 Albumin [Mass/Vol] 3.8 g/dL 3.5-5.0 [facility] Serum or plasma albumin/glob ulin mass ratioOrdered By: Michael Santana on 10-16-2024 Albumin/Globulin [Mass ratio] 1.0 {ratio} 0.9-2.4 [facility] Serum or plasma alkaline ann sphatase measurementOrdered By: Michael Santana on 10-16-2024 ALP [Catalytic activity/Vol] 68 U/L 40-129 [facility] Serum or plasma anion gap de termination (moles/volume)Ordered By: Michael Santana on 10-16-2024 Anion gap [Moles/Vol] 11 mmol/L 5-15 [facility] Serum or plasma calcium carlos urement (mass/volume)Ordered By: Michael Santana on 10-16-2024 Calcium [Mass/Vol] 9.2 mg/dL 7.6-11.0 [facility] Serum or plasma ethanol carlos urement (mass/volume)Ordered By: Michael Santana on 10-16-2024 Ethanol [Mass/Vol] mg/dL <10.1 [facility] Comment on above: This test is for med ical purposes only. The legal definition of intoxication varies according to local law. Serum or plasma hepatitis B virus surface antigen detection by immunoassayOrdered By: Michael Santana on 10-16-2024 HBV surface Ag IA Ql Negative Negative [facility] Serum or plasma potassium me asurementOrdered By: Michael Santana on 10-16-2024 Potassium [Moles/Vol] 3.9 mmol/L 3.3-5.1 [facility] Serum or plasma sodium measu rement (moles/volume)Ordered By: Michael Santana on 10-16-2024 Sodium [Moles/Vol] 128 mmol/L Low 133-145 [facility] Serum or plasma urea nitroge n measurement (mass/volume)Ordered By: Michael Santana on 10-16-2024 Urea nitrogen [Mass/Vol] 14 mg/dL 4-19 [facility] Serum tissue transglutaminas e (tTG) IgA antibody assay (units/volume)Ordered By: Michael Santana on 10-16-2024 tTG IgA Qn (S) <2 U/mL 0-3 [facility] Comment on above: Negative 0 - 3 Weak Positive 4 - 10 Positive >10 Tissue Transglutaminase (tTG) has been identified as the endomysial antigen. Studies have demonstr- ated that endomysial IgA antibodies have over 99% specificity for gluten sensitive enteropathy. Total proteinOrdered By: Sangeeta Santana on 10-16-2024 Protein [Mass/Vol] 7.8 g/dL 5.9-8.4 [facility] Venous blood ammonia measure mentOrdered By: Michael Santana on 10-16-2024 Ammonia (P) [Moles/Vol] 24.7 umol/L 16-60 [facility] tTG IgA Qn (S)Ordered By: Kolton Santana on 10-16-2024 Tissue Transglutaminase IgA Ab <2 U/mL 0-3 [facility] Comment on above: Negative 0 - 3 Weak Positive 4 - 10 Positive >10 Tissue Transglutaminase (tTG) has been identified as the endomysial antigen. Studies have demonstr- ated that endomysial IgA antibodies have over 99% specificity for gluten sensitive enteropathy. L501.5101on 10-12-2024 GGTP 424 IU/L Abnormal 0-65 [facility] Comment on above: Order Comment: UNK Result Comment: Perf ormed at: - [address] [id number] Museum Guide: Felicia Garcia MD, Phone: [phone] Performed at: [facility] [address] [id number] Museum Guide: Pablito Rubalcava PhD, Phone: [phone] Performed By: #### L 501.5101, L3300.8000, L500.4100, L400.2011, L500.4050, L100.0100, L503.6550, L505.5000, L506.1000, L503.6150, L502.0500, L101.9900, L501.9520, L503.0105, L501.5200 #### [facility] [address] [facility] [place], [place], [address] Vitamin B1, Thiamineon 10-12 VIT B1 THIAMINE 68.5 nmol/L Normal 66.5-200.0 [facility] Comment on above: Order Comment: UNK Performed By: #### L 501.5101, L3300.8000, L500.4100, L400.2011, L500.4050, L100.0100, L503.6550, L505.5000, L506.1000, L503.6150, L502.0500, L101.9900, L501.9520, L503.0105, L501.5200 #### [facility] [address] [place], [place], [address] Colonoscopy Reporton 025 Colonoscopy Report [facility] Medical Records Department [address] [place] [address] Colonoscopy Report MR#: [id number] Acct: [id number] Name: RJ JOHNSON II Rep #: [id number] : 1975 48 From: Paddy Lanza MD PCP: Dr. Michael Santana MD Status:[facility] Patient Name: Rj Johnson Procedure Date: 10/10/2024 [...] for surveillance. Procedure Code(s): --- Professional --- 53570, 33, Colonoscopy, flexible; with removal of tumor(s), polyp(s), or other lesion(s) by snare technique Diagnosis Code(s): --- Professional --- Z12.11, Encounter for screening for malignant neoplasm of colon D12.8, Benign neoplasm of rectum CPT copyright 2021 [employer]. All rights reserved. The codes documented in this report are preliminary and upon enterprise records analyst review may be revised to meet current compliance requirements. Paddy Lanza MD 10/10/2024 10:19:35 AM This report has been signed electronically. Number of Addenda: 0 Note Initiated On: 10/10/2024 9:00 AM 10/10/24 1019 Date Paddy Garcia Signature: Date (if indicated) CC: Dr. Paddy Lanza MD; Dr. Michael Santana MD Date Dictated: 10/10/24 0900 Date Transcribed: Repair Welder: JORDYN Vergara [facility] MR/POSTOP.[facility] 10-10-2024 MR/POSTOP.[facility] Medical Records Department [address] [facility] [place] [address] Anesthesia Postop Eval I 10/10/24 1024 MR#: [id number] Acct: [id number] Name: ERNESTORJ II Rep #: [id number] : 1975 48 From: Brandon Bess PCP: Dr. Michael Santana MD Status:REG [facility] Y Race: C Location: [place] [address] Anesthesia: Postop Eval I Current Vital Signs [...] Date Brandon Garcia Signature: Date CC: Signed [facility] MR/[id number] 10-10-2024 MR/POSTOPAN2 [facility] Medical Records Department [address] [place] [address] Anesthesia Postop Eval II 10/10/241832 MR#: [id number] Acct: [id number] Name: RJ JOHNSON II Rep #: [id number] : 1975 48 From: Obed Ramsay MD PCP: Dr. Michael Santana MD Status:DEP [facility] Y Race: C Location: EN Anesthesia Postop [...] MD Cosigner Signature: Date CC: Signed Normal [facility] Surgery Specimen Level Karolyn 10-10-2024 Surgery Specimen Level IV -------- ---- Patient Age/Sex Location Account Attending Physician ---- RJ JOHNSON II 48/M EN [id number] Dr. Paddy Lanza MD ---- Specimen: [id number] Received: 10/10/24 Status: RODRIGO Freeman Num: [id number] Spec Type: COLON BX Subm Dr: Dr. [...] entirely in one cassette. [email or web address].mr 10/10/2024 TC:1 CPT:91854 ---- Patient Age/Sex Location Account Attending Physician ---- RJ JOHNSON II 48/M EN [id number] Dr. Paddy Lanza MD ---- Signed (signature on file) Dr. Ignacio Torres MD 10/11/24 1145 ---- Normal [facility] Comment on above: Performed By: #### L 501.5101, L3300.8000, L500.4100, L400.2011, L500.4050, L100.0100, L503.6550, L505.5000, L506.1000, L503.6150, L502.0500, L101.9900, L501.9520, L503.0105, L501.5200 #### [facility] [address] [place], [address] Ironon 10-07-2024 Iron [Mass/Vol] 107 ug/dL Normal 65-175 [facility] Comment on above: Order Comment: UNK Performed By: #### L 501.5101, L3300.8000, L500.4100, L400.2011, L500.4050, L100.0100, L503.6550, L505.5000, L506.1000, L503.6150, L502.0500, L101.9900, L501.9520, L503.0105, L501.5200 #### [facility] [address] [place], [address] Magnesiumon 10-07-2024 Magnesium [Mass/Vol] 2.9 mg/dL High 1.6-2.6 [facility] Comment on above: Order Comment: UNK Performed By: #### L 501.5101, L3300.8000, L500.4100, L400.2011, L500.4050, L100.0100, L503.6550, L505.5000, L506.1000, L503.6150, L502.0500, L101.9900, L501.9520, L503.0105, L501.5200 #### [facility] [address] [place], [address] Urinalysis, Routine (Dipstic k)on 10-07-2024 BILIRUBIN URINE Normal Negative [facility] Comment on above: Order Comment: UNK Result Comment: URIN E NOT IF TUBES, TOO OLD TO RUN Performed By: #### L 501.5101, L3300.8000, L500.4100, L400.2011, L500.4050, L100.0100, L503.6550, L505.5000, L506.1000, L503.6150, L502.0500, L101.9900, L501.9520, L503.0105, L501.5200 #### [facility] [address] [place], [place], [id number] Clarity (U) Normal Clear [facility] Comment on above: Order Comment: UNK Result Comment: URIN E NOT IF TUBES, TOO OLD TO RUN Performed By: #### L 501.5101, L3300.8000, L500.4100, L400.2011, L500.4050, L100.0100, L503.6550, L505.5000, L506.1000, L503.6150, L502.0500, L101.9900, L501.9520, L503.0105, L501.5200 #### [facility] [address] [place], [place], [address] Color (U) Normal Yellow [facility] Comment on above: Order Comment: UNK Result Comment: URIN E NOT IF TUBES, TOO OLD TO RUN Performed By: #### L 501.5101, L3300.8000, L500.4100, L400.2011, L500.4050, L100.0100, L503.6550, L505.5000, L506.1000, L503.6150, L502.0500, L101.9900, L501.9520, L503.0105, L501.5200 #### [facility] [address] [place], [place], [id number] GLUCOSE, UR Normal Normal [facility] Comment on above: Order Comment: UNK Result Comment: URIN E NOT IF TUBES, TOO OLD TO RUN Performed By: #### L 501.5101, L3300.8000, L500.4100, L400.2011, L500.4050, L100.0100, L503.6550, L505.5000, L506.1000, L503.6150, L502.0500, L101.9900, L501.9520, L503.0105, L501.5200 #### [facility] [address] [place], [place], [id number] KETONE UR Normal Negative [facility] Comment on above: Order Comment: UNK Result Comment: URIN E NOT IF TUBES, TOO OLD TO RUN Performed By: #### L 501.5101, L3300.8000, L500.4100, L400.2011, L500.4050, L100.0100, L503.6550, L505.5000, L506.1000, L503.6150, L502.0500, L101.9900, L501.9520, L503.0105, L501.5200 #### [facility] [address] [place], [place], [id number] LEUK ESTERASE Normal Negative [facility] Comment on above: Order Comment: UNK Result Comment: URIN E NOT IF TUBES, TOO OLD TO RUN Performed By: #### L 501.5101, L3300.8000, L500.4100, L400.2011, L500.4050, L100.0100, L503.6550, L505.5000, L506.1000, L503.6150, L502.0500, L101.9900, L501.9520, L503.0105, L501.5200 #### [facility] [address] [place], [place], [id number] Nitrite Ql (U) Normal Negative [facility] Comment on above: Order Comment: UNK Result Comment: URIN E NOT IF TUBES, TOO OLD TO RUN Performed By: #### L 501.5101, L3300.8000, L500.4100, L400.2010, L500.4050, L100.0100, L503.6550, L505.5000, L506.1000, L503.6150, L502.0500, L101.9900, L501.9520, L503.0105, L501.5200 #### [facility] [address] [place], [place], [id number] OCCULT BLOOD-UR Normal Negative [facility] Comment on above: Order Comment: UNK Result Comment: URIN E NOT IF TUBES, TOO OLD TO RUN Performed By: #### L 501.5101, L3300.8000, L500.4100, L400.2011, L500.4050, L100.0100, L503.6550, L505.5000, L506.1000, L503.6150, L502.0500, L101.9900, L501.9520, L503.0105, L501.5200 #### [facility] [address] [place], [address] pH UR Normal 5.0 - 8.0 [facility] Comment on above: Order Comment: UNK Result Comment: URIN E NOT IF TUBES, TOO OLD TO RUN Performed By: #### L 501.5101, L3300.8000, L500.4100, L400.2011, L500.4050, L100.0100, L503.6550, L505.5000, L506.1000, L503.6150, L502.0500, L101.9900, L501.9520, L503.0105, L501.5200 #### [facility] [address] [place], [place], [id number] PROT DIPSTX Normal Negative [facility] Comment on above: Order Comment: UNK Result Comment: URIN E NOT IF TUBES, TOO OLD TO RUN Performed By: #### L 501.5101, L3300.8000, L500.4100, L400.2011, L500.4050, L100.0100, L503.6550, L505.5000, L506.1000, L503.6150, L502.0500, L101.9900, L501.9520, L503.0105, L501.5200 #### [facility] [address], [address] SP.GR. DIPSTX Normal 1.002-1.03 0 [facility] Comment on above: Order Comment: UNK Result Comment: URIN E NOT IF TUBES, TOO OLD TO RUN Performed By: #### L 501.5101, L3300.8000, L500.4100, L400.2011, L500.4050, L100.0100, L503.6550, L505.5000, L506.1000, L503.6150, L502.0500, L101.9900, L501.9520, L503.0105, L501.5200 #### [facility] [address] [place], [address] UR Preservative Normal [facility] Comment on above: Order Comment: UNK Result Comment: URIN E NOT IF TUBES, TOO OLD TO RUN Performed By: #### L 501.5101, L3300.8000, L500.4100, L400.2011, L500.4050, L100.0100, L503.6550, L505.5000, L506.1000, L503.6150, L502.0500, L101.9900, L501.9520, L503.0105, L501.5200 #### [facility] [address] [place], [address] UROBILI Normal Normal [facility] Comment on above: Order Comment: UNK Result Comment: URIN E NOT IF TUBES, TOO OLD TO RUN Performed By: #### L 501.5101, L3300.8000, L500.4100, L400.2011, L500.4050, L100.0100, L503.6550, L505.5000, L506.1000, L503.6150, L502.0500, L101.9900, L501.9520, L503.0105, L501.5200 #### [facility] [place], [address] [id number]-Vfkerjf DOrdered By: Jhoan Schrader on 10-06-2024 Vitamin D 25-Hydroxy 8.0 ng/mL [facility] Comment on above: Vitamin D 25(OH) Sta tus Range Deficiency <20 ng/mL (50nmol/L) Insufficiency 20 - 30 ng/mL (50 - 75 nmol/L) Sufficiency 30 - 100 ng/mL (75 - 250 nmol/L) Toxicity >100 ng/mL (>250 nmol/L) Absolute lymphocyte countOrd ered By: Liudmila Schrader on 10-06-2024 Lymphocytes Auto (Unsp spec) [#/Vol] 0.80 10*3/uL Low 0.83-4.51 [facility] Absolute neutrophil countOrd ered By: Liudmila Schrader on 10-06-2024 Neutrophils (Bld) [#/Vol] 3.2 10*3/uL 2.0-7.7 [facility] Albumin to globulin ratioOrd ered By: Liudmila Schrader on 10-06-2024 Albumin/Globulin [Mass ratio] 0.7 {ratio} Low 0.9-2.4 [facility] Automated lymphocyte count a s percentage of total leukocytesOrdered By: Liudmila Schrader on 10-06-2024 Lymphocytes/100 WBC Auto (Unsp spec) 16.9 % Low 19-41 [facility] Basophil percentageOrdered B y: Liudmila Schrader on 10-06-2024 Basophils/100 WBC (Bld) 1.1 % High 0-1 [facility] Bilirubin, totalOrdered By: Liudmila Schrader on 10-06-2024 Bilirubin [Mass/Vol] 0.60 mg/dL 0.20-1.00 [facility] Comment on above: For patients on eltr ombopag therapy, use of Dimension Earp TBIL is not recommended. Blood urea nitrogen (BUN)/cr eatinine ratioOrdered By: Liudmila Schrader on 10-06-2024 Urea nitrogen/Creatinine [Mass ratio] 11.4 mg/mg 10-20 [facility] CBC W/Diff, Automatedon 02-2 -2024 Absolute Lymph 0.80 X10 3/uL Low 0.83-4.51 [facility] Comment on above: Performed By: #### L 501.5101, L3300.8000, L500.4100, L400.2011, L500.4050, L100.0100, L503.6550, L505.5000, L506.1000, L503.6150, L502.0500, L101.9900, L501.9520, L503.0105, L501.5200 #### [facility] [address] [place], [address] Absolute Neut 3.2 X10 3/uL Normal 2.0-7.7 [facility] Comment on above: Performed By: #### L 501.5101, L3300.8000, L500.4100, L400.2010, L500.4050, L100.0100, L503.6550, L505.5000, L506.1000, L503.6150, L502.0500, L101.9900, L501.9520, L503.0105, L501.5200 #### [facility] [address] [facility] [place], [address] Basophils/100 WBC (Bld) 1.1 % High 0-1 [facility] Comment on above: Performed By: #### L 501.5101, L3300.8000, L500.4100, L400.2010, L500.4050, L100.0100, L503.6550, L505.5000, L506.1000, L503.6150, L502.0500, L101.9900, L501.9520, L503.0105, L501.5200 #### [facility] [address] [place], [address] Eosinophils/100 WBC (Bld) 0.6 % Normal 0-5 [facility] Comment on above: Performed By: #### L 501.5101, L3300.8000, L500.4100, L400.2011, L500.4050, L100.0100, L503.6550, L505.5000, L506.1000, L503.6150, L502.0500, L101.9900, L501.9520, L503.0105, L501.5200 #### [facility] [address] [place], [address] (140) Erythrocyte distribution width (RBC) [Ratio] 11.5 % Low 11.6-14.6 [facility] Comment on above: Performed By: #### L 501.5101, L3300.8000, L500.4100, L400.2011, L500.4050, L100.0100, L503.6550, L505.5000, L506.1000, L503.6150, L502.0500, L101.9900, L501.9520, L503.0105, L501.5200 #### [facility] [address] [facility] [place], [address] Hematocrit (Bld) [Volume fraction] 32.4 % Low 40-54 [facility] Comment on above: Performed By: #### L 501.5101, L3300.8000, L500.4100, L400.2011, L500.4050, L100.0100, L503.6550, L505.5000, L506.1000, L503.6150, L502.0500, L101.9900, L501.9520, L503.0105, L501.5200 #### [facility] [address] [place], [address] (896) Hemoglobin (Bld) [Mass/Vol] 11.5 g/dL Low 13.0-16. 5 [facility] Comment on above: Performed By: #### L 501.5101, L3300.8000, L500.4100, L400.2011, L500.4050, L100.0100, L503.6550, L505.5000, L506.1000, L503.6150, L502.0500, L101.9900, L501.9520, L503.0105, L501.5200 #### [facility] [address] [facility] [place], [address] IG% 0.400 Normal 0.0-0.9 [facility] Comment on above: Result Comment: IG% - Immature Granulocytes (promyelocytes, myelocytes and metamyelocytes) > 1% indicates that a LEFT SHIFT is Present. Performed By: #### L 501.5101, L3300.8000, L500.4100, L400.2011, L500.4050, L100.0100, L503.6550, L505.5000, L506.1000, L503.6150, L502.0500, L101.9900, L501.9520, L503.0105, L501.5200 #### [facility] [address] [facility] [place], [address] Lymphocytes/100 WBC (Bld) 16.9 % Low 19-41 [facility] Comment on above: Performed By: #### L 501.5101, L3300.8000, L500.4100, L400.2011, L500.4050, L100.0100, L503.6550, L505.5000, L506.1000, L503.6150, L502.0500, L101.9900, L501.9520, L503.0105, L501.5200 #### [facility] [address] [facility] [place], [address] MCH (RBC) [Entitic mass] 33.0 pg High 27.0-32.0 [facility] Comment on above: Performed By: #### L 501.5101, L3300.8000, L500.4100, L400.2011, L500.4050, L100.0100, L503.6550, L505.5000, L506.1000, L503.6150, L502.0500, L101.9900, L501.9520, L503.0105, L501.5200 #### [facility] [address] [place], [address] MCHC (RBC) [Mass/Vol] 35.5 g/dL Normal 32-36 [facility] Comment on above: Performed By: #### L 501.5101, L3300.8000, L500.4100, L400.2011, L500.4050, L100.0100, L503.6550, L505.5000, L506.1000, L503.6150, L502.0500, L101.9900, L501.9520, L503.0105, L501.5200 #### [facility] [address] [place], [address] MCV (RBC) [Entitic vol] 93.1 fL Normal 80-94 [facility] Comment on above: Performed By: #### L 501.5101, L3300.8000, L500.4100, L400.2011, L500.4050, L100.0100, L503.6550, L505.5000, L506.1000, L503.6150, L502.0500, L101.9900, L501.9520, L503.0105, L501.5200 #### [facility] [address] [place], [address] Monocytes/100 WBC (Bld) 13.1 % High 0-10 [facility] Comment on above: Performed By: #### L 501.5101, L3300.8000, L500.4100, L400.2011, L500.4050, L100.0100, L503.6550, L505.5000, L506.1000, L503.6150, L502.0500, L101.9900, L501.9520, L503.0105, L501.5200 #### [facility] [address] [place], [address] Neutrophils/100 WBC (Bld) 67.9 % Normal 47-70 [facility] Comment on above: Performed By: #### L 501.5101, L3300.8000, L500.4100, L400.2011, L500.4050, L100.0100, L503.6550, L505.5000, L506.1000, L503.6150, L502.0500, L101.9900, L501.9520, L503.0105, L501.5200 #### [facility] [address] [place], [address] Nucleated RBC (Bld) [#/Vol] 0 10*3/uL Normal 0-5 [facility] Comment on above: Performed By: #### L 501.5101, L3300.8000, L500.4100, L400.2011, L500.4050, L100.0100, L503.6550, L505.5000, L506.1000, L503.6150, L502.0500, L101.9900, L501.9520, L503.0105, L501.5200 #### [facility] [address] [place], [address] Platelet mean volume (Bld) [Entitic vol] 8.2 fL Normal 6.2-12.0 [facility] Comment on above: Performed By: #### L 501.5101, L3300.8000, L500.4100, L400.2011, L500.4050, L100.0100, L503.6550, L505.5000, L506.1000, L503.6150, L502.0500, L101.9900, L501.9520, L503.0105, L501.5200 #### [facility] [address] [place], [address] Platelets (Bld) [#/Vol] 192 10*3/uL Normal 150-450 [facility] Comment on above: Performed By: #### L 501.5101, L3300.8000, L500.4100, L400.2011, L500.4050, L100.0100, L503.6550, L505.5000, L506.1000, L503.6150, L502.0500, L101.9900, L501.9520, L503.0105, L501.5200 #### [facility] [address] [place], [address] RBC (Bld) [#/Vol] 3.48 10*6/uL Low 4.6-6.2 [facility] Comment on above: Performed By: #### L 501.5101, L3300.8000, L500.4100, L400.2011, L500.4050, L100.0100, L503.6550, L505.5000, L506.1000, L503.6150, L502.0500, L101.9900, L501.9520, L503.0105, L501.5200 #### [facility] [address] [place], [address] RDW SD 38.8 fl Normal 35.1-43.9 [facility] Comment on above: Performed By: #### L 501.5101, L3300.8000, L500.4100, L400.2011, L500.4050, L100.0100, L503.6550, L505.5000, L506.1000, L503.6150, L502.0500, L101.9900, L501.9520, L503.0105, L501.5200 #### [facility] [address] [place], [address] WBC (Bld) [#/Vol] 4.7 10*3/uL Normal 4.4-11.0 [facility] Comment on above: Performed By: #### L 501.5101, L3300.8000, L500.4100, L400.2011, L500.4050, L100.0100, L503.6550, L505.5000, L506.1000, L503.6150, L502.0500, L101.9900, L501.9520, L503.0105, L501.5200 #### [facility] [address] [place], [place], [id number] Carbon dioxide measurementOr dered By: Liudmila Schrader on 10-06-2024 CO2 [Moles/Vol] 24.0 mmol/L 21.0-32.0 [facility] Chloride measurementOrdered By: Liudmila Schrader on 10-06-2024 Chloride [Moles/Vol] 92 mmol/L Low 98-107 [facility] Comprehensive Metabolic Prof ilon 10-06-2024 Albumin [Mass/Vol] 3.5 g/dL Normal 3.2-5.0 [facility] Comment on above: Order Comment: Order Date: 09/03/24 Order Info: 2857-1 - PSA DR SCRHADER ORDERTe PSA DR MAX FREDERICK Performed By: #### L 501.5101, L3300.8000, L500.4100, L400.2010, L500.4050, L100.0100, L503.6550, L505.5000, L506.1000, L503.6150, L502.0500, L101.9900, L501.9520, L503.0105, L501.5200 #### [facility] [address] [place], [place], [id number] Albumin/Globulin [Mass ratio] 0.7 {ratio} Low 0.9-2.4 [facility] Comment on above: Order Comment: Order Date: 09/03/24 Order Info: 2857-1 - PSA DR SCHRADER ORDERTe PSA DR MAX FREDERICK Performed By: #### L 501.5101, L3300.8000, L500.4100, L400.2011, L500.4050, L100.0100, L503.6550, L505.5000, L506.1000, L503.6150, L502.0500, L101.9900, L501.9520, L503.0105, L501.5200 #### [facility] [address] [place], [place], [id number] ALK P 86 U/L Normal 45-117 [facility] Comment on above: Order Comment: Order Date: 09/03/24 Order Info: 2857-1 - PSA DR RACIEL FREDERICK PSA DR MAX FREDERICK Performed By: #### L 501.5101, L3300.8000, L500.4100, L400.2011, L500.4050, L100.0100, L503.6550, L505.5000, L506.1000, L503.6150, L502.0500, L101.9900, L501.9520, L503.0105, L501.5200 #### [facility] [address] [place], [place], [id number] ALT [Catalytic activity/Vol] 135 U/L High 16-61 [facility] Comment on above: Order Comment: Order Date: 09/03/24 Order Info: 2857-1 - PSA DR RACIEL FREDERICK PSA DR MAX FREDERICK Performed By: #### L 501.5101, L3300.8000, L500.4100, L400.2011, L500.4050, L100.0100, L503.6550, L505.5000, L506.1000, L503.6150, L502.0500, L101.9900, L501.9520, L503.0105, L501.5200 #### [facility] [address] [place], [place], [id number] AST [Catalytic activity/Vol] 179 U/L High 15-37 [facility] Comment on above: Order Comment: Order Date: 09/03/24 Order Info: 2857-1 - PSA DR RACIEL FREDERICK PSA DR MAX FREDERICK Performed By: #### L 501.5101, L3300.8000, L500.4100, L400.2011, L500.4050, L100.0100, L503.6550, L505.5000, L506.1000, L503.6150, L502.0500, L101.9900, L501.9520, L503.0105, L501.5200 #### [facility] [address] [place], [address] Bilirubin [Mass/Vol] 0.60 mg/dL Normal 0.20-1.00 [facility] Comment on above: Order Comment: Order Date: 09/03/24 Order Info: 2857-1 - PSA DR RACIEL FREDERICK PSA DR MAX FREDERICK Result Comment: For patients on eltrombopag therapy, use of Dimension Earp TBIL is not recommended. Performed By: #### L 501.5101, L3300.8000, L500.4100, L400.2011, L500.4050, L100.0100, L503.6550, L505.5000, L506.1000, L503.6150, L502.0500, L101.9900, L501.9520, L503.0105, L501.5200 #### [facility] [address] [place], [address] BUN/CRE 11.4 RATIO Normal 10-20 [facility] Comment on above: Order Comment: Order Date: 09/03/24 Order Info: 2857-1 - PSA DR RACIEL FREDERICK PSA DR MAX FREDERICK Performed By: #### L 501.5101, L3300.8000, L500.4100, L400.2011, L500.4050, L100.0100, L503.6550, L505.5000, L506.1000, L503.6150, L502.0500, L101.9900, L501.9520, L503.0105, L501.5200 #### [facility] [address] [place], [address] CA,Total 9.4 mg/dL Normal 8.5-10.1 [facility] Comment on above: Order Comment: Order Date: 09/03/24 Order Info: 2857-1 - PSA DR RACIEL FREDERICK PSA DR MAX FREDERICK Performed By: #### L 501.5101, L3300.8000, L500.4100, L400.2011, L500.4050, L100.0100, L503.6550, L505.5000, L506.1000, L503.6150, L502.0500, L101.9900, L501.9520, L503.0105, L501.5200 #### [facility] [address] [place], [address] Chloride [Moles/Vol] 92 mmol/L Low 98-107 [facility] Comment on above: Order Comment: Order Date: 09/03/24 Order Info: 2857-1 - PSA DR SCHRADER ORDERTe PSA DR MAX FREDERICK Performed By: #### L 501.5101, L3300.8000, L500.4100, L400.2011, L500.4050, L100.0100, L503.6550, L505.5000, L506.1000, L503.6150, L502.0500, L101.9900, L501.9520, L503.0105, L501.5200 #### [facility] [address] [place], [address] CO2 [Moles/Vol] 24.0 mmol/L Normal 21.0-32.0 [facility] Comment on above: Order Comment: Order Date: 09/03/24 Order Info: 2857-1 - PSA DR SCHRADER ORDERTe PSA DR MAX FREDERICK Performed By: #### L 501.5101, L3300.8000, L500.4100, L400.2011, L500.4050, L100.0100, L503.6550, L505.5000, L506.1000, L503.6150, L502.0500, L101.9900, L501.9520, L503.0105, L501.5200 #### [facility] [address] [place], [address] Creatinine [Mass/Vol] 0.88 mg/dL Normal 0.70-1.30 [facility] Comment on above: Order Comment: Order Date: 09/03/24 Order Info: 2857- - PSA DR RACIEL FREDERICK PSA DR MAX FREDERICK Result Comment: The validity of the calculated GFR GFRAA in patients over 70 years has not been determined. Clinical correlation is essential. Performed By: #### L 501.5101, L3300.8000, L500.4100, L400.2011, L500.4050, L100.0100, L503.6550, L505.5000, L506.1000, L503.6150, L502.0500, L101.9900, L501.9520, L503.0105, L501.5200 #### [facility] [address] [place], [place], [id number] EST GFR - AA 119 mL/min Normal >60 [facility] Comment on above: Order Comment: Order Date: 09/03/24 Order Info: 2857- - PSA DR RACIEL FREDERICK PSA DR MAX FREDERICK Result Comment: Afri can Mauritian GFR Calc Performed By: #### L 501.5101, L3300.8000, L500.4100, L400.2011, L500.4050, L100.0100, L503.6550, L505.5000, L506.1000, L503.6150, L502.0500, L101.9900, L501.9520, L503.0105, L501.5200 #### [facility] [address] [place], [place], [id number] GAP 11 Normal 5-15 [facility] Comment on above: Order Comment: Order Date: 09/03/24 Order Info: 2857- - PSA DR RACIEL FREDERICK PSA DR MAX FREDERICK Performed By: #### L 501.5101, L3300.8000, L500.4100, L400.2011, L500.4050, L100.0100, L503.6550, L505.5000, L506.1000, L503.6150, L502.0500, L101.9900, L501.9520, L503.0105, L501.5200 #### [facility] [address] [place], [place], [address] GFR/1.73 sq M.predicted among non-blacks MDRD (S/P/Bld) [Vol rate/Area] 99 mL/min/{1.73_m2} Normal >60 [facility] Comment on above: Order Comment: Order Date: 09/03/24 Order Info: 2857- - PSA DR RACIEL FREDERICK PSA DR MAX FREDERICK Result Comment: Non- GFR Calc Performed By: #### L 501.5101, L3300.8000, L500.4100, L400.2011, L500.4050, L100.0100, L503.6550, L505.5000, L506.1000, L503.6150, L502.0500, L101.9900, L501.9520, L503.0105, L501.5200 #### [facility] [address] [place], [place], [phone] (788) Globulin (S) [Mass/Vol] 5.1 g/dL High 2.2-4.2 [facility] Comment on above: Order Comment: Order Date: 09/03/24 Order Info: 2857 - PSA DR RACIEL FREDERICK PSA DR MAX FREDERICK Performed By: #### L 501.5101, L3300.8000, L500.4100, L400.2011, L500.4050, L100.0100, L503.6550, L505.5000, L506.1000, L503.6150, L502.0500, L101.9900, L501.9520, L503.0105, L501.5200 #### [facility] [address] [place], [place], [address] (185) Glucose [Mass/Vol] 81 mg/dL Normal 74-106 [facility] Comment on above: Order Comment: Order Date: 09/03/24 Order Info: 2857-1 - PSA DR RACIEL FREDERICK PSA DR MAX FREDERICK Performed By: #### L 501.5101, L3300.8000, L500.4100, L400.2011, L500.4050, L100.0100, L503.6550, L505.5000, L506.1000, L503.6150, L502.0500, L101.9900, L501.9520, L503.0105, L501.5200 #### [facility] [address] [place], [address] Potassium [Moles/Vol] 5.0 mmol/L Normal 3.5-5.1 [facility] Comment on above: Order Comment: Order Date: 09/03/24 Order Info: 2857- - PSA DR RACIEL FREDERICK PSA DR MAX FREDERICK Performed By: #### L 501.5101, L3300.8000, L500.4100, L400.2011, L500.4050, L100.0100, L503.6550, L505.5000, L506.1000, L503.6150, L502.0500, L101.9900, L501.9520, L503.0105, L501.5200 #### [facility] [address] [place], [address] Sodium [Moles/Vol] 127 mmol/L Low 136-145 [facility] Comment on above: Order Comment: Order Date: 09/03/24 Order Info: 2857- - PSA DR RACIEL FREDERICK PSA DR MAX FREDERICK Performed By: #### L 501.5101, L3300.8000, L500.4100, L400.2010, L500.4050, L100.0100, L503.6550, L505.5000, L506.1000, L503.6150, L502.0500, L101.9900, L501.9520, L503.0105, L501.5200 #### [facility] [address] [place], [address] T PROT 8.6 g/dL High 6.4-8.2 [facility] Comment on above: Order Comment: Order Date: 09/03/24 Order Info: [id number] - PSA DR RACIEL FREDERICK PSA DR MAX FREDERICK Performed By: #### L 501.5101, L3300.8000, L500.4100, L400.2011, L500.4050, L100.0100, L503.6550, L505.5000, L506.1000, L503.6150, L502.0500, L101.9900, L501.9520, L503.0105, L501.5200 #### [facility] [address] [place], [place], [id number] Urea nitrogen [Mass/Vol] 10 mg/dL Normal 7-18 [facility] Comment on above: Order Comment: Order Date: 09/03/24 Order Info: [id number] - PSA DR RACIEL FREDERICK PSA DR MAX FREDERICK Performed By: #### L 501.5101, L3300.8000, L500.4100, L400.2011, L500.4050, L100.0100, L503.6550, L505.5000, L506.1000, L503.6150, L502.0500, L101.9900, L501.9520, L503.0105, L501.5200 #### [facility] [address] [place], [address] Eosinophil percentageOrdered By: Liudmila Schrader on 10-06-2024 Eosinophils/100 WBC (Bld) 0.6 % 0-5 [facility] Erythrocyte Sed Rateon 10-06 SED RATE 15 mm/hr Normal 0-20 [facility] Comment on above: Performed By: #### L 501.5101, L3300.8000, L500.4100, L400.2011, L500.4050, L100.0100, L503.6550, L505.5000, L506.1000, L503.6150, L502.0500, L101.9900, L501.9520, L503.0105, L501.5200 #### [facility] [address] [place], [address] Erythrocyte distribution wid th ratioOrdered By: Liudmila Schrader on 10-06-2024 Erythrocyte distribution width (RBC) [Ratio] 11.5 % Low 11.6-14.6 [facility] Erythrocyte distribution wid th standard deviationOrdered By: Liudmila Schrader on 10-06-2024 Erythrocyte distribution width (RBC) [Entitic vol] 38.8 fL 35.1-43.9 [facility] Erythrocyte distribution width (RBC) [Ratio] 38.8 fl 35.1-43.9 [facility] Erythrocyte sedimentation ra teOrdered By: Liudmila Schrader on 10-06-2024 ESR (Bld) [Velocity] 15 mm/h 0-20 [facility] Estimated glomerular filtrat ion rate (GFR) AmericanOrdered By: Liudmila Schrader on 10-06-2024 Estimated GFR (MDRD) Amer 119 mL/min >60 [facility] Comment on above: GFR Calc Ferritinon 10-06-2024 Ferritin [Mass/Vol] 856 ng/mL High -388 [facility] Comment on above: Order Comment: UNK Performed By: #### L 501.5101, L3300.8000, L500.4100, L400.2011, L500.4050, L100.0100, L503.6550, L505.5000, L506.1000, L503.6150, L502.0500, L101.9900, L501.9520, L503.0105, L501.5200 #### [facility] [address] [place] [address], [address] Ferritin measurementOrdered By: Liudmila Schrader on 10-06-2024 Ferritin [Mass/Vol] 856 ng/mL High -388 [facility] Gamma glutamyl transferase ( GGT) measurementOrdered By: Liudmila Schrader on 10-06-2024 Amylase [Catalytic activity/Vol] 424 U/L High 0-65 [facility] Comment on above: Performed at: [facility] [place] [address] [id number] Director: Felicia Garcia MD, Phone: [phone] at: [facility] CenterXdxqtf1008 [place], [place] [id number] Director: Pablito Rubalcava PhD, Phone: [phone] Glomerular filtration rate ( GFR) estimationOrdered By: Liudmila Schrader on 10-06-2024 Estimated GFR (MDRD) Non-Af Amer 99 mL/min >60 [facility] Comment on above: Non- GFR Calc GFR/1.73 sq M.predicted among non-blacks MDRD (S/P/Bld) [Vol rate/Area] 99 mL/min/{1.73_m2} >60 [facility] Comment on above: Non- GFR Calc Glucose measurementOrdered B y: Liudmila Schrader on 10-06-2024 Glucose [Mass/Vol] 81 mg/dL 74-106 [facility] Hematocrit Auto (Bld) [Volum e fraction]Ordered By: Liudmila Schrader on 10-06-2024 Hematocrit (Bld) [Volume fraction] 32.4 % Low 40-54 [facility] Hemoglobin measurementOrdere d By: Liudmila Schrader on 10-06-2024 Hemoglobin (Bld) [Mass/Vol] 11.5 g/dL Low 13.0-16. 5 [facility] High density lipoprotein (HD L) measurementOrdered By: Liudmila Schrader on 10-06-2024 Cholesterol in HDL [Mass/Vol] 93 mg/dL >40 [facility] Comment on above: The drugs N-Acetylcy steine and Metamizole may falsely depress this assay. Reference Range HDL <40 mg/dL Low HDL Cholesterol HDL >or= 60 mg/dL High HDL Cholesterol Immature granulocytes/100 WB C Auto (Bld)Ordered By: Liudmila Schrader on 10-06-2024 Immature granulocytes/100 WBC (Bld) 0.400 % 0.0-0.9 [facility] Comment on above: IG% - Immature Granu locytes (promyelocytes, myelocytes and metamyelocytes) > 1% indicates that a LEFT SHIFT is Present. Iron (Unsp spec) [Mass/Mass] Ordered By: Liudmila Schrader on 10-06-2024 Iron [Mass/Vol] 107 ug/dL 65-175 [facility] Iron measurement (mass/mass) Ordered By: Liudmila Schrader on 10-06-2024 Iron (Unsp spec) [Mass/Mass] 107 ug/dL 65-175 [facility] Laboratory - Chemistry and C hemistry - challengeOrdered By: Liudmila Schrader on 10-06-2024 AST [Catalytic activity/Vol] 179 U/L High 15-37 [facility] Lipid Profileon 10-06-2024 Cholesterol [Mass/Vol] 210 mg/dL High 200 [facility] Comment on above: Order Comment: Order Date: 09/03/24 Order Info: 2857-1 - PSA DR SCHRADER ORDERTe PSA DR MAX FREDERICK Result Comment: <200 mg/dL Desirable 200-240 mg/dL Borderline >240 mg/dL High Risk Performed By: #### L 501.5101, L3300.8000, L500.4100, L400.2011, L500.4050, L100.0100, L503.6550, L505.5000, L506.1000, L503.6150, L502.0500, L101.9900, L501.9520, L503.0105, L501.5200 #### [facility] [address] [place], [place], [id number] (765) Cholesterol in HDL [Mass/Vol] 93 mg/dL Normal [facility] Comment on above: Order Comment: Order [...] L503.6150, L502.0500, L101.9900, L501.9520, L503.0105, L501.5200 #### [facility] [address] [place], [address] Cholesterol in LDL [Mass/Vol] 104 mg/dL Normal 0-130 [facility] Comment on above: Order Comment: Order Date: 09/03/24 Order Info: [id number] - PSA DR RACIEL FREDERICK PSA DR MAX FREDERICK Performed By: #### L 501.5101, L3300.8000, L500.4100, L400.2011, L500.4050, L100.0100, L503.6550, L505.5000, L506.1000, L503.6150, L502.0500, L101.9900, L501.9520, L503.0105, L501.5200 #### [facility] [address] [place], [address] Cholesterol in VLDL [Mass/Vol] 13 mg/dL Normal 5-40 [facility] Comment on above: Order Comment: Order Date: 09/03/24 Order Info: [id number] - PSA DR RACIEL FREDERICK PSA DR MAX FREDERICK Performed By: #### L 501.5101, L3300.8000, L500.4100, L400.2011, L500.4050, L100.0100, L503.6550, L505.5000, L506.1000, L503.6150, L502.0500, L101.9900, L501.9520, L503.0105, L501.5200 #### [facility] [address] [place], [address] Triglyceride [Mass/Vol] 66 mg/dL Normal [facility] Comment on above: Order Comment: Order [...] L503.6150, L502.0500, L101.9900, L501.9520, L503.0105, L501.5200 #### [facility] [place], [address] Low density lipoprotein (LDL ) cholesterol measurementOrdered By: Liudmila Schrader on 10-06-2024 Cholesterol in LDL [Mass/Vol] 104 mg/dL 0-130 [facility] Lymphocytes Auto (Unsp spec) [#/Vol]Ordered By: Liudmila Schrader on 10-06-2024 Lymphocytes (Bld) [#/Vol] 0.80 10*3/uL Low 0.83-4.5 1 [facility] Lymphocytes/100 WBC Auto (Un sp spec)Ordered By: Liudmila Schrader on 10-06-2024 Lymphocytes/100 WBC (Bld) 16.9 % Low 19-41 [facility] MCV (mean corpuscular volume ) determinationOrdered By: Liudmila Schrader on 10-06-2024 MCV (RBC) [Entitic vol] 93.1 fL 80-94 [facility] Magnesium measurementOrdered By: Liudmila Schrader on 10-06-2024 Magnesium [Mass/Vol] 2.9 mg/dL High 1.6-2.6 [facility] Mean corpuscular hemoglobin (MCH) determinationOrdered By: Liudmila Schrader on 10-06-2024 MCH (RBC) [Entitic mass] 33.0 pg High 27.0-32.0 [facility] Mean corpuscular hemoglobin concentration (MCHC) determinationOrdered By: Liudmila Schrader on 10-06-2024 MCHC (RBC) [Mass/Vol] 35.5 g/dL 32-36 [facility] Mean platelet volume determi nationOrdered By: Liudmila Schrader on 10-06-2024 Platelet mean volume (Bld) [Entitic vol] 8.2 fL 6.2-12.0 [facility] Methadone, urineOrdered By: Liudmila Schrader on 10-06-2024 Urine Methadone Screen Negative < 300 ng/mL [facility] Microalbumin,Random Urineon 10-06-2024 MICROALBUMIN,UR 152.0 mg/L Normal NO RANGE EST. [facility] Comment on above: Performed By: #### L 501.5101, L3300.8000, L500.4100, L400.2011, L500.4050, L100.0100, L503.6550, L505.5000, L506.1000, L503.6150, L502.0500, L101.9900, L501.9520, L503.0105, L501.5200 #### [facility] [address] [place], [address] Monocyte percentageOrdered B y: Liudmila Schrader on 10-06-2024 Monocytes/100 WBC (Bld) 13.1 % High 0-10 [facility] Neutrophil percentageOrdered By: Liudmila Schrader on 10-06-2024 Neutrophils/100 WBC (Bld) 67.9 % 47-70 [facility] No Panel InformationOrdered By: Liudmila Schrader on 10-06-2024 Urine Drug Screen Comment [facility] Comment on above: CONFIRMATORY TESTING FOR [...] RBC/100 WBC (Bld) [Ratio] 0 % 0-5 [facility] PSA,Total - Annual Screenon 10-06-2024 PSA,TOT SCREEN 1.28 ng/mL Normal 0.00-4.00 [facility] Comment on above: Order Comment: UNK Result Comment: This test was performed using the TPSA assay method for the [employer] system. Values obtained with different assay methods cannot be used interchangably. When changing PSA assays in the course of monitoring a patient, additional sequential testing should be carried out to confirm baseline values. Performed By: #### L 501.5101, L3300.8000, L500.4100, L400.2011, L500.4050, L100.0100, L503.6550, L505.5000, L506.1000, L503.6150, L502.0500, L101.9900, L501.9520, L503.0105, L501.5200 #### [facility] [address] [place], [address] Platelet countOrdered By: Aristides Schrader on 10-06-2024 Platelets (Bld) [#/Vol] 192 10*3/uL 150-450 [facility] Potassium measurementOrdered By: Liudmila Schrader on 10-06-2024 Potassium [Moles/Vol] 5.0 mmol/L 3.5-5.1 [facility] Quantitative urine opiates m easurementOrdered By: Liudmila Schrader on 10-06-2024 Opiates Ql (U) Negative < 300 ng/mL [facility] RBC Auto (Bld) [#/Vol]Ordere d By: Liudmila Schrader on 10-06-2024 RBC (Bld) [#/Vol] 3.48 10*6/uL Low 4.6-6.2 [facility] Random urine microalbumin me asurementOrdered By: Liudmila Schrader on 10-06-2024 Urine Random Microalbumin 152.0 mg/L NO RANGE EST. [facility] Screening prostate specific antigen (PSA) measurementOrdered By: Liudmila Schrader on 10-06-2024 Prostate Specific Antigen Screen 1.28 ng/mL 0.00-4.00 [facility] Comment on above: This test was perfor med using the TPSA assay method [facility]. Values obtained with differentassay methods cannot be used interchangably.When changing PSA assays in the course of monitoring apatient, additional sequential testing should be carriedout to confirm baseline values. Serum anion gap measurementO rdered By: Liudmila Schrader on 10-06-2024 Anion gap [Moles/Vol] 11 mmol/L 5-15 [facility] Serum globulin measurementOr dered By: Liudmila Schrader on 10-06-2024 Globulin (S) [Mass/Vol] 5.1 g/dL High 2.2-4.2 [facility] Serum or plasma alanine bruno otransferase (ALT) measurementOrdered By: Liudmila Schrader on 10-06-2024 ALT [Catalytic activity/Vol] 135 U/L High 16-61 [facility] Serum or plasma albumin carlos urement (mass/volume)Ordered By: Liudmila Schrader on 10-06-2024 Albumin [Mass/Vol] 3.5 g/dL 3.2-5.0 [facility] Serum or plasma alkaline ann sphatase measurementOrdered By: Liudmila Schrader on 10-06-2024 ALP [Catalytic activity/Vol] 86 U/L 45-117 [facility] Serum or plasma calcium carlos urement (mass/volume)Ordered By: Liudmila Schrader on 10-06-2024 Calcium [Mass/Vol] 9.4 mg/dL 8.5-10.1 [facility] Serum or plasma cholesterol measurement (mass/volume)Ordered By: Liudmila Schrader on 10-06-2024 Cholesterol [Mass/Vol] 210 mg/dL High <200 [facility] Comment on above: <200 mg/dL Desirable 200-240 mg/dL Borderline >240 mg/dL High Risk Serum or plasma creatinine m easurement (mass/volume)Ordered By: Liudmila Schrader on 10-06-2024 Creatinine [Mass/Vol] 0.88 mg/dL 0.70-1.30 [facility] Comment on above: The validity of the calculated GFR & GFRAA in patients over 70 years has not been determined. Clinical correlation is essential. Serum or plasma thiamine keron surement (mass/volume)Ordered By: Liudmila Schrader on 10-06-2024 Thiamine [Mass/Vol] 68.5 nmol/L 66.5-200.0 [facility] Serum or plasma thyroid stim ulating hormone (TSH) measurement (units/volume)Ordered By: Liudmila Schrader on 10-06-2024 TSH Qn 1.330 uIU/mL 0.358-3.74 0 [facility] Serum or plasma urea nitroge n measurement (mass/volume)Ordered By: Liudmila Schrader on 10-06-2024 Urea nitrogen [Mass/Vol] 10 mg/dL 7-18 [facility] Sodium levelOrdered By: Liudmila Schrader on 10-06-2024 Sodium [Moles/Vol] 127 mmol/L Low 136-145 [facility] TSH QnOrdered By: Liudmila rueda on 10-06-2024 Thyroid Stimulating Hormone (TSH) 1.330 uIU/mL 0.358-3.74 0 [facility] Thiamine [Mass/Vol]Ordered B y: Liudmila Schrader on 10-06-2024 Whole Blood Vitamin B1 Level 68.5 nmol/L 66.5-2 00.0 [facility] Thyroid Stim Hormone (TSH)on 10-06-2024 TSH 1.330 uIU/mL Normal 0.358-3.74 0 [facility] Comment on above: Order Comment: Order Date: 09/03/24 Order Info: [id number] - PSA DR SCHRADER ORDERD PSA DR SANTANA ORDERD Performed By: #### L 501.5101, L3300.8000, L500.4100, L400.2011, L500.4050, L100.0100, L503.6550, L505.5000, L506.1000, L503.6150, L502.0500, L101.9900, L501.9520, L503.0105, L501.5200 #### [facility] [address] [facility]. [place], [place], [id number] Total proteinOrdered By: Sophie Schrader on 10-06-2024 Protein [Mass/Vol] 8.6 g/dL High 6.4-8.2 [facility] Triglycerides measurementOrd ered By: Liudmila Schrader on 10-06-2024 Triglyceride [Mass/Vol] 66 mg/dL <199 [facility] Comment on above: The drugs N-Acetylcy steine and Metamizole may falsely depress this assay.Serum Triglycerides Reference Interval Normal <150 mg/dL Borderline high 150 - 199 mg/dL High 200 - 499 mg/dL Very High > or = 500 mg/dL Urine Drug Screen (VISTA)on 10-06-2024 AMPHETAMINES Negative Normal <1000 ng/mL [facility] Comment on above: Order Comment: UNK Performed By: #### L 501.5101, L3300.8000, L500.4100, L400.2011, L500.4050, L100.0100, L503.6550, L505.5000, L506.1000, L503.6150, L502.0500, L101.9900, L501.9520, L503.0105, L501.5200 #### [facility] [address] [place], [place], [address] BARBITIURATES Negative Normal < 200 ng/mL [facility] Comment on above: Order Comment: UNK Performed By: #### L 501.5101, L3300.8000, L500.4100, L400.2010, L500.4050, L100.0100, L503.6550, L505.5000, L506.1000, L503.6150, L502.0500, L101.9900, L501.9520, L503.0105, L501.5200 #### [facility] [address] [place], [address] BENZODIAZIPINE Negative Normal < 200 ng/mL [facility] Comment on above: Order Comment: UNK Performed By: #### L 501.5101, L3300.8000, L500.4100, L400.2010, L500.4050, L100.0100, L503.6550, L505.5000, L506.1000, L503.6150, L502.0500, L101.9900, L501.9520, L503.0105, L501.5200 #### [facility] [address] [place], [address] COCAINE Negative Normal < 300 ng/mL [facility] Comment on above: Order Comment: UNK Performed By: #### L 501.5101, L3300.8000, L500.4100, L400.2010, L500.4050, L100.0100, L503.6550, L505.5000, L506.1000, L503.6150, L502.0500, L101.9900, L501.9520, L503.0105, L501.5200 #### [facility] [address] [place], [place], [id number] ECSTACY Negative Normal < 500 ng/mL [facility] Comment on above: Order Comment: UNK Performed By: #### L 501.5101, L3300.8000, L500.4100, L400.2011, L500.4050, L100.0100, L503.6550, L505.5000, L506.1000, L503.6150, L502.0500, L101.9900, L501.9520, L503.0105, L501.5200 #### [facility] [place], [address] METHADONE Negative Normal < 300 ng/mL [facility] Comment on above: Order Comment: UNK Performed By: #### L 501.5101, L3300.8000, L500.4100, L400.2011, L500.4050, L100.0100, L503.6550, L505.5000, L506.1000, L503.6150, L502.0500, L101.9900, L501.9520, L503.0105, L501.5200 #### [facility] [place], [place], [address] OPIATES Negative Normal < 300 ng/mL [facility] Comment on above: Order Comment: UNK Performed By: #### L 501.5101, L3300.8000, L500.4100, L400.2011, L500.4050, L100.0100, L503.6550, L505.5000, L506.1000, L503.6150, L502.0500, L101.9900, L501.9520, L503.0105, L501.5200 #### [facility] [address] [facility]. [place], [place], [address] PCP Negative Normal < 25 ng/mL [facility] Comment on above: Order Comment: UNK Performed By: #### L 501.5101, L3300.8000, L500.4100, L400.2011, L500.4050, L100.0100, L503.6550, L505.5000, L506.1000, L503.6150, L502.0500, L101.9900, L501.9520, L503.0105, L501.5200 #### [facility] [address] [place], [place], [address] THC Negative Normal < 50 ng/mL [facility] Comment on above: Order Comment: UNK Performed By: #### L 501.5101, L3300.8000, L500.4100, L400.2011, L500.4050, L100.0100, L503.6550, L505.5000, L506.1000, L503.6150, L502.0500, L101.9900, L501.9520, L503.0105, L501.5200 #### [facility] [address] [facility] [address] [place], [place], [id number] VISTA UDS PH 5 Normal [facility] Comment on above: Order Comment: UNK Performed By: #### L 501.5101, L3300.8000, L500.4100, L400.2011, L500.4050, L100.0100, L503.6550, L505.5000, L506.1000, L503.6150, L502.0500, L101.9900, L501.9520, L503.0105, L501.5200 #### [facility] [address] [facility]. [place], [place], [id number] Urine amphetamine measuremen tOrdered By: Liudmila Schrader on 10-06-2024 Amphetamines Ql (U) Negative <1000 ng/mL [facility] Urine barbiturates measureme ntOrdered By: Liudmila Schrader on 10-06-2024 Urine Barbiturates Screen Negative < 200 ng/mL [facility] Urine benzodiazepine levelOr dered By: Liudmila Schrader on 10-06-2024 Benzodiazepines Ql (U) Negative < 200 ng/mL [facility] Urine cocaine levelOrdered B y: Liudmila Schrader on 10-06-2024 Cocaine Ql (U) Negative < 300 ng/mL [facility] Urine waiaz-4-ckhmbuteyzcgnc abinol (THC) measurementOrdered By: Liudmila Schrader on 10-06-2024 Cannabinoids Screen Ql (U) Negative < 50 ng/m L [facility] Urine methylenedioxymethamph etamine (MDMA) measurementOrdered By: Liudmila Schrader on 10-06-2024 MDMA (Ecstasy) Screen Negative < 500 ng/mL [facility] Urine phencyclidine (PCP) de tectionOrdered By: Liudmila Schrader on 10-06-2024 Phencyclidine Ql (U) Negative < 25 ng/mL [facility] Very low density lipoprotein (VLDL) cholesterol measurementOrdered By: Liudmila Schrader on 10-06-2024 Very low density lipoprotein (VLDL) cholesterol measurement 13 mg/dL 5-40 [facility] VLDL Cholesterol 13 mg/dL 5-40 [facility] Vitamin B12 measurementOrder ed By: Liudmila Schrader on 10-06-2024 Cobalamin (Vitamin B12) [Mass/Vol] 207 pg/mL Low 211-911 [facility] Comment on above: Performed By: #### L 501.5101, L3300.8000, L500.4100, L400.2011, L500.4050, L100.0100, L503.6550, L505.5000, L506.1000, L503.6150, L502.0500, L101.9900, L501.9520, L503.0105, L501.5200 #### [facility] [address] [place], [address] Vitamin D,25 Hydroxyon 10-06 Vitamin D 25-OH 8.0 ng/mL Normal [facility] Comment on above: Result Comment: Roxanna min D 25(OH) Status Range Deficiency <20 ng/mL (50nmol/L) Insufficiency 20 - 30 ng/mL (50 - 75 nmol/L) Sufficiency 30 - 100 ng/mL (75 - 250 nmol/L) Toxicity >100 ng/mL (>250 nmol/L) Performed By: #### L 501.5101, L3300.8000, L500.4100, L400.2011, L500.4050, L100.0100, L503.6550, L505.5000, L506.1000, L503.6150, L502.0500, L101.9900, L501.9520, L503.0105, L501.5200 #### [facility] [address] [place], [place], [id number] White blood cell (WBC) count Ordered By: Liudmila Schrader on 10-06-2024 WBC (Bld) [#/Vol] 4.7 10*3/uL 4.4-11.0 [facility] Vital Signs Date Time Vital Sign Value Performing Clinician Faci lity 01-22-2025 13:34-0400 Body height 190.[address] Michael Santana MD Work Phone: [facility] 01-22-2025 13:34-0400 Body mass index (BMI) [Ratio] 27.6 kg/m2 Dr. Michael Santana MD Work Phone: [facility] 01-22-2025 13:34-0400 Body temperature 97.7 [degF] Dr. Michael Santana MD Work Phone: [facility] 01-22-2025 13:34-0400 Body weight 100.[address] Michael Santana MD Work Phone: [facility] 01-22-2025 13:34-0400 Diastolic blood pressure 68 mm[Hg] Dr. Michael Santana MD Work Phone: [facility] 01-22-2025 13:34-0400 Heart rate 111 /min Dr. Michael Santana MD Work Phone: [facility] 01-22-2025 13:34-0400 Respiratory rate 15 /min Dr. Michael Santana MD Work Phone: [facility] 01-22-2025 13:34-0400 SaO2% (BldA) [Mass fraction] 97 % Dr. Michael Santana MD Work Phone: [facility] 01-22-2025 13:34-0400 Systolic blood pressure 104 mm[Hg] Dr. Michael Santana MD Work Phone: [facility] 11-15-2024 10:56-0400 Body height 190.[address] Michael Santana MD Work Phone: 3(817)[phone] [place] [address] 11-15-2024 10:56-0400 Body mass index (BMI) [Ratio] 26.7 kg/m2 Dr. Michael Santana MD Work Phone: 2(074)332-763391 [address] 11-15-2024 10:56-0400 Body temperature 98.2 [degF] Dr. Michael Santana MD Work Phone: [facility] 11-15-2024 10:56-0400 Body weight 97.[address] Michael Santana MD Work Phone: [facility] 11-15-2024 10:56-0400 Diastolic blood pressure 74 mm[Hg] Dr. Michael Santana MD Work Phone: [facility] 11-15-2024 10:56-0400 Heart rate 110 /min Dr. Michael Santana MD Work Phone: [facility] 11-15-2024 10:56-0400 Respiratory rate 16 /min Dr. Michael Santana MD Work Phone: [facility] 11-15-2024 10:56-0400 SaO2% (BldA) [Mass fraction] 98 % Dr. Michael Santana MD Work Phone: [facility] 11-15-2024 10:56-0400 Systolic blood pressure 122 mm[Hg] Dr. Michael Santana MD Work Phone: [facility] 10-26-2024 08:09-0400 Body height 190.[address] Michael Santana MD Work Phone: 9([phone])774-309475 [place] [address] 10-10-2024 10:35-0500 Body temperature 99.1 [degF] Dr. Michael Santana MD Work Phone: 9(467)647-841275 [place] [address] 10-10-2024 10:35-0500 Diastolic blood pressure 90 mm[Hg] Dr. Michael Santana MD Work Phone: 8(447)600-650275 [place] [address] 10-10-2024 10:35-0500 Heart rate 81 /min Dr. Michael Santana MD Work Phone: 7(007)150-363875 [place] [address] 10-10-2024 10:35-0500 Respiratory rate 18 /min Dr. Michael Santana MD Work Phone: 9(805)[phone] [place] [address] 10-10-2024 10:35-0500 SaO2% (BldA) [Mass fraction] 95 % Dr. Michael Santana MD Work Phone: 3([phone])928-552675 [place] [address] 10-10-2024 10:35-0500 Systolic blood pressure 128 mm[Hg] Dr. Michael Santana MD Work Phone: 8(865)[phone] [place] [address] 10-10-2024 08:30-0500 Body height 190.[address] Michael Santana MD Work Phone: 4(135)972-548275 [place] [address] 10-10-2024 08:30-0500 Body mass index (BMI) [Ratio] 26.2 kg/m2 Dr. Michael Santana MD Work Phone: 6(866)887-972075 [place] [address] 10-10-2024 08:30-0500 Body weight [address] Michael Santana MD Work Phone: 4(115)392-958175 [place] [address] 08-01-2024 10:49-0500 Body mass index (BMI) [Ratio] 25.6 kg/m2 Dr. Michael Santana MD Work Phone: 8([phone])[phone] [address] 08-01-2024 10:49-0500 Body weight 92.[address] Michael Santana MD Work Phone: [facility] Encounters Encounter Date Encounter Type Care Provider Facility Start: 01-24-2025 End: 01-24-[address] Michael Santana MD Work Phone: [facility] Work Phone: Start: 01-24-2025 End: 01-24-[address] Wisam Cosby MD -[facility] Start: 01-24-2025 End: 01-24-20[facility] Start: 01-22-2025 End: 01-22-[address] Wisam Cosby MD -[facility] Work Phone: Start: 01-22-2025 End: 01-22-[address] Michael Santana MD Work Phone: [facility] Work Phone: Start: 12-20-2024 [facility] lit:[facility] Start: 12-20-[address] Wisam vasquez MD -Physical Therapy Work Phone: Start: 12-05-2024 ambulatory Michael Burr lity:[facility] Start: 12-05-2024 Non-patient / Non-visit Dr. Melissa Lema MD -[facility]- Start: 12-05-2024 End: 12-05-[address] Michael Santana MD Work Phone: [facility] Work Phone: Start: 12-05-2024 End: 12-05-[address] Wisam Cosby MD -Pulmonary Services/Neurology Work Phone: Start: 12-05-2024 End: 12-05-2024 ambulatory Michael Santana Facility:[facility] Start: 11-30-[address] Wisam vasquze MD -Physical Therapy Work Phone: Start: 11-15-2024 End: 11-15-[address] Wisam Cosby MD -[facility] Work Phone: Start: 11-15-2024 End: 11-15-2024 ambulatory Michael Santana Facility:[facility] Start: 11-01-2024 End: 11-01-[address] Michael Santana MD Work Phone: [facility] Work Phone: Start: 11-01-2024 End: 11-01-[address] Michael Santana MD -Ultrasound, [facility] Work Phone: Start: 11-01-2024 End: 11-01-2024 ambulatory [facility] [facility] Facility:[facility] Start: 10-26-2024 End: 10-26-[address] Shamar Fritz MD -[facility] Start: 10-26-2024 End: 10-26-2024 [facility]ulatory [facility] Start: 10-23-2024 End: 10-23-2024 ambulatory [facility] Facility:[facility] Start: 10-16-2024 End: 10-16-[address] Michael Santana MD Work Phone: [facility] Work Phone: Start: 10-16-2024 End: 10-16-[address] Michael Santana MD -Laboratory, [facility] Start: 10-16-2024 End: 10-16-2024 ambulatory [facility] Facility:[facility] Start: 10-10-2024 Non-patient / Non-visit Dr. Paddy Lanza MD -[facility] Start: 10-10-2024 End: 10-10-2024 Admission to same day surgery center Dr. Paddy Lanza MD -Endoscopy Work Phone: Start: 10-10-2024 End: 10-10-2024 ambulatory Paddy Lanza Facility:[facility] Start: 10-06-2024 End: 10-06-2024 Patient encounter procedure Liudmila Schrader CHIEF PHARMACIST-C -Laboratory, [place] Work Phone: Start: 10-06-2024 End: 10-06-2024 ambulatory Michael Santana Facility:[facility] Start: 08-01-2024 Non-patient / Non-visit Dr. Michael Santana MD Work Phone: -[facility] Work Phone: Start: 08-01-2024 ambulatory [facility] Facility:[facility] Procedures Date Procedure Procedure Detail Performing Clinician Start: 01-24-2025 Folic acid measurement, RBC Dr. Michael Santana MD Work Phone: Start: 01-24-2025 Intrinsic factor ant ibody measurement Dr. Michael Santana MD Work Phone: Comment on above: Performed at: [address] [id number] Director: Pablito Rubalcava PhD, Phone: [phone] at: [facility] [place] [id number] Director: Felicia Garcia MD, Phone: [phone] Start: 01-24-2025 Urine lambda light c silvestre [...] med using the TPSA assay method for the[employer] chemistry system. Values obtained with differentassay methods cannot be used interchangably.When changing PSA assays in the course of monitoring apatient, additional sequential testing should be carriedout to confirm baseline values. Plan of Treatment Date Care Activity Detail Author Start: 11-15-2024 Patient referral [facility] Work Phone: Start: 10-10-2024 Colsc flx w/rmvl of tumor polyp lesion snare tq COLONOSCOPY W/LESION REMOVAL [facility] Start: 10-10-2024 Patient discharge [facility] Comprehensive metabo lic 1999 panel - Serum or Plasma [facility] Folic acid measureme nt, RBC [facility] Hemoglobin A1c/Hemoglobin.total in Blood [facility] Intrinsic factor blo cking Ab [Units/volume] in Serum [facility] Magnesium measurement [facility] MR Lumbar spine [facility] Patient referral [facility] Work Phone: [facility] Payers Date Payer Category Payer Self-pay 2024 Unknown [id number] 1975 Unknown [id number] 2.16.8 [id number] Unknown [facility] [id number] Unknown [id number] 2.16.8 [id number] Unknown [id number] 2.16.8 [id number] Unknown [id number] 2.16.8 [id number] Unknown [id number] 2.16.8 [id number] Unknown [id number] 2.16.8 [id number] Unknown [id number] 2.16.8 [id number] Unknown [id number] 2.16.8 [id number] Unknown [id number] 2.16.8 [id number] Unknown [id number] 2.16.8 [id number] Unknown [id number] 2.16.8 [id number] Unknown [id number] 2.16.8 [id number] Unknown [id number] 2.16.8 [id number] Unknown [id number] 2.16.8 [id number] Unknown [id number] 2.16.8 [id number] Social History Date Type Detail Facility Start: 10-10-2024 End: 10-26-2024 Tobacco smoking status NHIS Never smoked tobacco (finding) [facility] Start: 10-25-2024 End: 12-08-2024 Sex Male (finding) [facility] Start: 1975 Sex Assigned At Male [facility] Goals Date Patient Goal Desired Activity /State Mental Status Date Assessment Result Facility 10-10-2024 Cognitive function [facility] Work Phone: Procedure note 12-05-2024 Note Date & Type Note Facility 12-05-2024 Procedure note [facility] Radiology Diagnostic study note 11-01-2024 Note Date & Type Note Facility 11-01-2024 Radiology Diagnostic study note [facility] Imaging Services [address] [place] [address] ABD Limited w/ Elastography MR#: [id number] Acct: [id number] Name: RJ JOHNSON II Rep #: [id number] : 1975 M 48 From: Dario Miller MD PCP: Dr. Michael Santana MD Status: REG CLI Study:ABD Limited w/ Elastography Date of Exa m: 11/01/24 Exam# [id number] Ordering Dr: Elda Santana MD PROCEDURE: ABD LIMITED W/ ELASTOGRAPHY REASON FOR EXAM: NEW ELEVATED LFTS, ETOH. COMPARISON: None. TECHNIQUE: Right upper quadrant abdominal ultrasound. [employer] ElastQ Imaging shear wave elastography for non-invasive assessment of liver tissue stiffness. [employer] EPIQ Elite. FINDINGS: LIVER: Size: Enlarged (hepatomegaly) [...] measurement may be in question. Reading Location: [place] [address] CC: Dr. Michael Santana MD ~ Repair Welder: Signed [facility] Evaluation note 10-10-2024 Note Date & Type Note Facility 10-10-2024 Evaluation note Diagnosis Onset Date Resolution Encounter for screening for malignant neoplasm of colon acute October 10 8:07am [facility] Work Phone: Evaluation note 10-10-2024 Note Date & Type Note Facility 10-10-2024 Evaluation note Diagnosis Onset Date Resolution Encounter for screening for malignant neoplasm of colon acute October 10 8:07am B12 nutritional deficiency acute November 15, 2024 10:52am Hyponatremia acute November 15 10:52am Polyneuropathy acute November 15, 2024 10:52am Vitamin d deficiency acute Apri 2024 10:52am [facility] Work Phone: Evaluation note 10-10-2024 Note [...] d deficiency acute January 22, 2025 1:29pm [facility] [employer] [facility] Work Phone: Clinical Note 10-10-2024 Note Date & Type Note Facility 10-10-2024 Note [facility] Medical Records Department [address] [place] [address] History Physical Exam 10/10/24 0907 MR#: [id number] Acct: [id number] Name: RJ JOHNSON II Rep #: [id number] : 1975 48 From: Paddy Lanza MD PCP: Dr. Michael Santana MD Status:[facility] Location: [place] [address] HPI - General HPI Narrative RJ JOHNSON, is a 48 M who presents for his for screening colonoscopy. Patient denies any abdominal pain or blood in the stool. He has never had a colonoscopy in the past. No family history of colon cancer. [facility] Medical History High cholesterol GERD (gastroesophageal [...] 08:29) Discharge Is Pt Admitted From a Correction, or a Senior Care: No After D/C, Where Do you Plan [...] proceed with procedure. Paddy Lanza MD Pager: [facility] [address] [place] [address], [address] [place] [address] Office: Surgery Risks - Colonoscopy Risks Include but are not Limited To: Risks include but are not limited to: Bleeding, perforation requiring further surgery, inability to complete colonoscopy requiring barium enema. 10/10/24 0908 Cosigner Signature (if applicable): CC: Dr. Paddy Lanza MD; Dr. Michael Santana MD Signed [facility] Reason for referral (narrative) Note Date & Type Note Facility Reason for referral (narrative) No reason for referral information available [facility] Work Phone: Summary Purpose Family History No Family History Records Found Relationship Condition Age at Onset Recorded Date/T naren father Malignant neoplasm of prostate Unknown Advance Directives No Advanced Directives Records Found Advance Directive Response Recorded Date/ Time Living Will Yes October 04 1:02pm Power of Manager Med Surg No October 04, 2024 1:02pm Advance Directive Response Recorded Date/ Time Living Will Yes October 04 1:02pm Do you have a Healthcare Power of Manager Med Surg? No October 04, 2024 1:02pm Chief Complaint [...] section and content) DATE CREATED AUTHOR 10/27/2024 [facility] DATE CREATED AUTHOR AUTHOR'S ORGANIZ ATION 02/17/2025 [facility] Care Teams (unrecognized sec tion and content) [...] 2024 End: October 06, 2024 Liudmila Schrader CHIEF PHARMACIST, CHIEF PHARMACIST-C Attending Provider Active S tart: October 06, 2024 End: October 06, 2024 Liudmila Schrader CHIEF PHARMACIST, CHIEF PHARMACIST-C Referring Provider Active S tart: October 06, [...] BE BASED ON THE PRIMARY CLINICAL RECORDS. [facility] [email or web address] [facility]. provides no warranty or guarantee of the accuracy or completeness of information in this document.
[2025-03-06 16:09] LABS: Albumin 3.6 g/dL (2.9-4.4); Gamma Globulin 1.5 g/dL (0.4-1.8); Immunoglobulin A 422 mg/dL (90-386); Immunoglobulin G 1640 mg/dL (603-1613); Immunoglobulin M 57 mg/dL (20-172); PROEL- TOTAL PROTEIN 7.5 g/dL (6.0-8.5)
== END | disposition home or self-care (01) ==
LOC: MFPLAB 08:54
PROVIDERS: PCP Family Medicine; Referring Provider Psychiatry & Neurology Neurology; Visit Provider Psychiatry & Neurology Neurology
DX: G62.9 Polyneuropathy, unspecified (principal)
CPT/HCPCS: 36415; 82784; 84165; 86334; 86335

== ENCOUNTER → 2025-03-13 | Outpatient (CLI) | payer OTHER, SELFPAY ==
[2025-03-13 19:47] LABS: AST(SGOT) 42 U/L (<=37); Alanine Aminotransfer ALT/SGPT 26 U/L (<=46); Albumin, Serum 4.0 g/dL (3.5-5.0); Alkaline Phosphatase 82 U/L (40-129); Anion Gap 15 (5-15); BUN 10 mg/dL (4-19); BUN/Creat Ratio 14.7 RATIO (10-20); Calcium,Total 8.9 mg/dL (7.6-11.0); Carbon Dioxide 18.9 mmol/L (21.0-32.0); Chloride 93 mmol/L (98-108); Globulin 3.9 g/dL (2.2-4.2); Glucose 92 mg/dL (70-99); Potassium 4.1 mmol/L (3.3-5.1)
== END | disposition home or self-care (01) ==
LOC: MFPLAB 15:26
PROVIDERS: Psychiatry & Neurology Neurology; PCP Family Medicine; Referring Provider Family Medicine; Visit Provider Family Medicine
DX: G62.9 Polyneuropathy, unspecified (principal)
CPT/HCPCS: 36415; 80053

== ENCOUNTER 2025-04-18 13:30 | Outpatient (RCR) | payer OTHER, SELFPAY ==
--- NOTE | 2025-03-15 13:46 | HP.PTEVAL_ITS ---
Patient's Visit Information Visit Information Visit Information: RJ OROZCO II is a 49 year old M referred to Physical Therapy by Dr. Wisam Cosby MD with a diagnosis of Balance. Date of Evaluation: 03/15/25 Physical Therapist: Liudmila Britt DPT Visit Plan Plan: Patient will have balance assessment and goal/POC will be established after findings Subjective Subjective: He went back to see the neurologist and he sent him back here for a balance assessment. He has not had any improvement with anyone he has seen but it has not gotten any worse. Balance is the biggest issue. When he rides or drives long distances it makes them worse- and he tried to get out and run and he ended up falling. He would like to get back to running but he knows he is not there. He is not falling in normal situations. He has fallen in 1x in 6 months. When he feels unstable its mostly forwards and backwards. Small N/T if he works hard- feels like he is getting a good work out. No pain. No braces- his kids play high school sports- he is going to have to walk. Objective Objective: Posture: forward head, rounded shoulders- can correct but does not maintain Gait: antalgic- increased base of support- flat foot progression- no heel/toe pattern- no AD HR/TR: unable in standing Balance: see FGA- unable to SLS without UE A Palpation: not tender to touch in LE Sensation: WNL to bilateral LE gross touch AROM: LE: WNL with the exception of DF: Left: 10 degrees Right: neutral PROM: WNL in all planes ROM: Pt. as good ROM in BLEs. Slight tightness on L calf compared to R side. Strength: Core: fair plus, Hip: 5/5, Knee: 5/5, Ankle: Left: DF: 3/5, PF: 3/5 Right: DF: 2+/5 PF: 3/5 Flex: HS: moderate, Gastroc: severe, Solues: severe Balance/Special Test Scores Functional Gait Assessment Score: 20 % Disability: 33.3400 TUG Test Time Seconds: 12.16 Rehabilitation Potential Physical Therapy Diagnosis: Patient presents with decreased ankle range of motion, strength, proprioception, flexibility and muscular endurance leading to increase risk of falls and abnormal gait pattern Rehabilitation Potential: Fair Anticipated Interventions Patient/Client Instruction: Educate patient on: Benefits of Fitness Program Therapeutic Exercise to Include: Strength training, Balance training, Coordinat ion, Agility training, Body mechanics, Postural training, Flexibilty training, Gait and locomotor training, Neuromotor development and Dynamic Lumbar Stabilization Functional Training to Include: Gait training Text: Thank you for the opportunity to evaluate your patient. For Medicare and Medicare HMO plans, please review the plan of care and approve it. It will need to be FAXED BACK to us at [phone] for Medicare purposes. For Medicare only, by signing this I certify the plan of care. Please let me know if there are questions or concerns regarding this plan of care. Physician Signature: Date:
--- NOTE | 2025-03-20 14:09 | HP.PTCOM ---
PT Communication Note 03/20/[address] Wisam Cosby MD , Thank you for the referral of Cam to [facility] for balance performance assessment. I have enclosed a copy of the results for your review. In summary, he scored very low on the forward and backward weight shifting on the limits of stability test. This is consistent with his neuropathhic presentation. On the Modified CTSIB, his scores on the testing are skewed as he needed to hold on almost consistently for the eyes closed portion of the testing unable to stand without visual cues and worse on the foam. 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 We will work to independence and then get him on a home program. Please contact me if there are questions regarding his scoring or physical therapy. Sincerely, Laurent Hurd DPT, OCS, CSCS Contact Information
--- NOTE | 2025-04-18 14:21 | HP.PTDCSUM ---
Discharge Summary D/C summary: It has been my pleasure to treat RJ OROZCO II referred by Dr. Wisam Cosby MD, with the diagnosis of Balance for a total of 7 visit(s). Discharge Date: 04/18/25 Please see the following information for a summary of their discharge status. Subjective Subjective: A little bit better, very slight, Balance slightly better. Pain not an issue. Activities normal, hanging with teenage boys. Not mowing lawn but could. Does yard work. Overall Improvement % Improvement: 10 Objective Objective/Function: FGA is +3. Weeakness in ankles all directions persists with DF the weeakest and R >L. Steppage gait and foot slap is obvious , does not want AFO or AD yet. Goals Goal 1:: I appropriate HEP to limit future problems with balance while doctoring for neuropathy Goal Progress: Goal Met Goal 2:: FGA Goal Progress: Goal Met Plan Plan: d/c D/C Information Discharge Comments: Pt to continue via gym and home ex. d/c sentence: If there are questions or concerns regarding this patient's physical therapy, please feel free to call me at [phone]. Thank you for the referral of this patient. Sincerely, Laurent Hurd, DPT, OCS, CSCS Balance/Gait/Functional tests Balance/Special Test Scores Functional Gait Assessment Score: 23 % Disability: 23.3400 Lower Extremity Functional Score: 54 TUG Test Time Seconds: 12.16 Tug Test: <20 sec.=mostly independent Improvement % Improvement: 10
== END 2025-04-18 19:00 | disposition home or self-care (01) ==
LOC: PT 13:30
PROVIDERS: PCP Family Medicine; Referring Provider Psychiatry & Neurology Neurology; Visit Provider Psychiatry & Neurology Neurology
DX: G62.9 Polyneuropathy, unspecified (principal)
CPT/HCPCS: 97110; 97112; 97161; 97164; 97750

== ENCOUNTER → 2025-06-11 | Outpatient (CLI) | payer OTHER, SELFPAY ==
[2025-06-11 10:37] LABS: AST(SGOT) 54 U/L (<=37); Alanine Aminotransfer ALT/SGPT 65 U/L (<=46); Albumin, Serum 4.3 g/dL (3.5-5.0); Alkaline Phosphatase 83 U/L (40-129); Anion Gap 11 (5-15); BUN 20 mg/dL (4-19); BUN/Creat Ratio 18.6 RATIO (10-20); Calcium,Total 10.0 mg/dL (7.6-11.0); Carbon Dioxide 25.0 mmol/L (21.0-32.0); Chloride 95 mmol/L (98-108); Globulin 4.2 g/dL (2.2-4.2); Glucose 106 mg/dL (70-99); Potassium 4.2 mmol/L (3.3-5.1)
[2025-06-12 23:08] LABS: VITAMIN B6 14.7 ug/L (3.4-65.2)
== END | disposition home or self-care (01) ==
LOC: MTLAB 07:59
PROVIDERS: PCP Family Medicine; Referring Provider Psychiatry & Neurology Neurology; Visit Provider Psychiatry & Neurology Neurology
DX: E87.1 Hypo-osmolality and hyponatremia (principal); G62.9 Polyneuropathy, unspecified
CPT/HCPCS: 36415; 80053; 84207

== ENCOUNTER → 2025-08-03 | Outpatient (CLI) | payer OTHER, SELFPAY ==
[2025-08-03 12:31] LABS: Hematocrit 35.5 % (40-54); Hemoglobin 12.2 g/dL (13.0-16.5); Mean Corp Hgb Conc 34.4 g/dL (32-36); Mean Corpuscular Volume 92.2 fL (80-94); Mean Platelet Vol. 8.4 fl (6.2-12.0); Platelet Count 196 K/mm3 (150-450); RBC Distribution Width CV 12.0 % (11.6-14.6); RBC Distribution Width SD 40.7 fl (35.1-43.9); Red Blood Count 3.85 M/mm3 (4.6-6.2); White Blood Count 4.9 K/mm3 (4.4-11.0)
[2025-08-03 13:01] LABS: Osmolality, Serum 282 mOsm/KG (275-295)
[2025-08-03 13:07] LABS: Alcohol, Blood (Medical)-Serum < 10.1 mg/dL (<=10.0)
[2025-08-03 13:18] LABS: AST(SGOT) 64 U/L (<=37); Alanine Aminotransfer ALT/SGPT 47 U/L (<=46); Albumin, Serum 4.4 g/dL (3.5-5.0); Alkaline Phosphatase 82 U/L (40-129); Anion Gap 13 (5-15); BUN 16 mg/dL (4-19); BUN/Creat Ratio 15.4 RATIO (10-20); Bilirubin, Direct 0.49 mg/dL (0.00-0.30); Calcium,Total 10.0 mg/dL (7.6-11.0); Carbon Dioxide 24.0 mmol/L (21.0-32.0); Chloride 92 mmol/L (98-108); Cholesterol 227 mg/dL (<=200); Ferritin 247 ng/mL (37-417); Globulin 4.1 g/dL (2.2-4.2); Glucose 98 mg/dL (70-99); Low Density Lipoprotein Calc. 109 mg/dL; Potassium 4.3 mmol/L (3.3-5.1); Triglycerides 107 mg/dL; Very Low Density Lipoprotein 21 mg/dL (5-40); Vitamin B12 396 pg/mL (180-914); Vitamin D,25 Hydroxy 100.0 ng/mL (30-100); cholesterol:hdl ratio screen 2.27
[2025-08-03 13:58] LABS: Iron 133 ug/dL (65-175)
[2025-08-07 07:07] LABS: GGTP 171 IU/L (0-65); Vitamin B1, Thiamine 75.6 nmol/L (66.5-200.0)
== END | disposition home or self-care (01) ==
LOC: MFPLAB 09:35
PROVIDERS: Psychiatry & Neurology Neurology; PCP Family Medicine; Visit Provider Family Medicine
DX: E87.1 Hypo-osmolality and hyponatremia (principal); R79.89 Other specified abnormal findings of blood chemistry; E78.5 Hyperlipidemia, unspecified; G62.9 Polyneuropathy, unspecified
CPT/HCPCS: 80048; 80061; 80076; 82077; 82306; 82607; 82728; 82977; 83540; 83930; 84425; 84443; 85027; 86335